=== PATIENT | female | born 1940 | race Caucasian/White ===

== ENCOUNTER → 2017-09-13 10:43 | Outpatient (CLI) | payer MEDICARE, SELFPAY | PROVIDERS: Family Provider Family Medicine; PCP Family Medicine; Visit Provider Nurse Practitioner Adult Health | DX: L03.011 Cellulitis of right finger (principal) | CPT/HCPCS: 87070; 87205 ==

== ENCOUNTER 2017-10-05 17:33 | Outpatient (RCR) | payer MEDICARE, SELFPAY | END 2017-10-05 23:59 | LOC: NS 17:33 | PROVIDERS: Family Provider Family Medicine; PCP Family Medicine; Visit Provider Orthopaedic Surgery | DX: N18.3 Chronic kidney disease, stage 3 (moderate) (principal); E66.9 Obesity, unspecified; Z68.30 Body mass index [BMI] 30.0-30.9, adult; Z71.3 Dietary counseling and surveillance | CPT/HCPCS: 97802 ==

== ENCOUNTER 2017-10-14 17:04 | Observation (INO) | payer MEDICARE, SELFPAY ==
[2017-10-14] VITALS (7 sets, daily range): BP systolic 102–143; BP diastolic 63–83; PULSE 56–88; RESP 14–26; TEMP 36.6–36.7; O2SAT 98–100; BMI 30.9; BMI 31.3
--- NOTE | 2017-10-14 17:23 | EKG12_ITS ---
Test Reason : ADMISSION EKG Blood Pressure : / mmHG Vent. Rate : 055 BPM Atrial Rate : 055 BPM P-R Int : 152 ms QRS Dur : 088 ms QT Int : 396 ms P-R-T Axes : 009 -13 009 degrees QTc Int : 378 ms Sinus bradycardia Confirmed by MINH LEDESMA, HANNAH ([id number]), editorial cartoonist SCHUYLER GRANGER ([id number]) on 10/20/2017 1:10:17 PM Referred By: EMA Confirmed By:HANNAH WILKINSON MD
[2017-10-14] MEDS: Aspirin 81 MG TAB.CHEW 324 MG PO (17:35)
[2017-10-14 17:36] LABS: Absolute Lymphocyte Count 1.66 X10^3/ul (0.83-4.51); Absolute Neutrophil Count 5.5 X10^3/uL (2.0-7.7); Basophil# 0.01 X10^3/uL; Basophil% 0.1 % (0-1); Eosinophil# 0.18 X10^3/uL; Eosinophils% 2.2 % (0-5); Hematocrit 42.2 % (37-47); Hemoglobin 13.7 g/dl (12.0-15.0); Lymphocyte # 1.66 X10^3/ul (4.0); Lymphocyte % 20.5 % (19-41); Mean Corp Hgb Conc 32.5 g/gl (32-36); Mean Corpuscular Hgb 31.9 pg (27.0-32.0); Mean Corpuscular Volume 98.4 fL (81-99); Monocyte% 8.7 % (0-10); Neutrophil # 5.49 X10^3/uL (2.7-7.7); Platelet Count 145 K/mm3 (150-450); RBC Distribution Width CV 13.2 % (11.6-14.6); RBC Distribution Width SD 47.1 fl (35.1-43.9); Red Blood Count 4.29 M/mm3 (4.2-5.4); White Blood Count 8.1 K/mm3 (4.4-11.0)
[2017-10-14 17:39] LABS: International Normalized Ratio 0.9; Prothrombin Time (Protime)PT. 12.6 SECONDS (11.7-14.9)
[2017-10-14 17:42] LABS: POSITIVE COUNT NO; POSITIVE DIFFERENTIAL NO; POSITIVE MORPHOLOGY NO
--- NOTE | 2017-10-14 17:47 | RAD_ITS ---
STUDY: X-RAY CHEST REASON FOR EXAM: Female, 76 years old. Epigastric pain radiating into the chest. TECHNIQUE: 2 views COMPARISON: None. FINDINGS: Lung [place] are well-expanded without major consolidation, focal atelectasis or a substantial pleural effusion. There is no demonstrated pleural abnormality. Normal size heart. Normal mediastinum and joan. Normal visualized pulmonary arteries. There is atherosclerotic calcification of the aortic arch with tortuosity. There are diffuse degenerative changes of the visualized thoracic spine with a mild dextroscoliosis. Normal visualized ribs, clavicles, and shoulders. There is no demonstrated abnormality of the visualized soft tissue structures of the upper abdomen. RAD/Chest PA and Lateral IMPRESSION: Lung [place] are well-expanded without major consolidation, focal atelectasis or substantial pleural effusion. Normal cardiac size. Electronically Signed: Erica Hoskins MD at 18:08 EDT , Service support ,
[2017-10-14 17:54] LABS: Anion Gap 8 (5-15); BUN 26 mg/dL (7-18); BUN/Creat Ratio 17.1 RATIO (10-20); Calcium,Total 9.5 mg/dL (8.5-10.1); Chloride 105 mmol/L (98-107); Creatinine, Serum 1.52 mg/dL (0.55-1.02); EST Glomerular Filtration Rate 35 mL/min (>60); Est Glom Filt Rate - Afr Amer 43 mL/min (>60); Estimated Creatinine Clearance 35.04 ml/min; Glucose 85 mg/dL (74-106); Potassium 4.1 mmol/L (3.5-5.1); Sodium Level 139 mmol/L (136-145)
[2017-10-14 17:59] LABS: D-Dimer Quantitative (DVT/PE) 5.53 FEU/ug/m (0.27-0.49)
--- NOTE | 2017-10-14 18:13 | CT_ITS ---
STUDY: CTA CHEST REASON FOR EXAM: Female, 76 years old. Elevated d-dimer. RADIATION DOSAGE (If Supplied By Facility): CTDIvol = ( 9.75 ) mGy, DLP = ( 428.39 ) mGycm TECHNIQUE: The examination was performed with the intravenous administration of 100ML ml of Isovue 300 contrast material. Post-processing of the angiographic images was performed, with multiplanar reformation and 3D reconstruction. Individualized dose optimization techniques were used for this CT. COMPARISON: None. FINDINGS: Normal enhancement of the main pulmonary artery and right and left pulmonary arteries. Normal enhancement of the bilateral peripheral pulmonary arteries. There is no demonstrated pulmonary embolism. There is atherosclerotic calcification of the aortic arch . There is no demonstrated aortic dissection. Normal heart and pericardium. Normal mediastinum. Normal hilar regions. Normal visualized trachea and bronchi. There is minimal bilateral dependent atelectasis. There are nonspecific prominent subpleural interstitial markings and groundglass opacities. Normal chest wall structures. There are degenerative changes of thoracic spine. Normal visualized upper abdomen. CT/CTA Chest W/WO Contrast IMPRESSION: No demonstrated pulmonary embolism or arterial dissection. Nonspecific subpleural interstitial markings and groundglass opacities may reflect interstitial lung disease. Atherosclerosis. Electronically Signed: Dasha Hernandez MD at 19:20 EDT Tel , Service support ,
[2017-10-14] MEDS: 0.9% Normal Saline 1,000 ML 999 ML IV (18:19)
--- NOTE | 2017-10-14 20:52 | PCM.HP.STD ---
Problem List (1) HTN (hypertension) Status: Chronic Qualifiers: Hypertension type: essential hypertension Qualified Code(s): I10 - Essential (primary) hypertension (2) HLD (hyperlipidemia) Status: Chronic Qualifiers: Hyperlipidemia type: pure hypercholesterolemia Qualified Code(s): E78.00 - Pure hypercholesterolemia, unspecified; E78.0 - Pure hypercholesterolemia (3) Hypothyroidism Status: Chronic Qualifiers: Hypothyroidism type: unspecified Qualified Code(s): E03.9 - Hypothyroidism, unspecified (4) Obesity (BMI 30.0-34.9) Status: Chronic (5) Chest pain Status: Acute Qualifiers: Chest pain type: unspecified Qualified Code(s): R07.9 - Chest pain, unspecified History of Present Illness Date of Admission: 10/14/17 Chief Complaint: Chest pain The patient is a 76 y/o F w/ PMHx: HTN, HLD, Obesity, Hypothyroidism, CKD stage III, Chronic back pain following w/ Dr. Lerma for injections but ability to walk her dog daily who presents to the [facility] ED on 10/14/17 with onset on day of ED presentation of substernal chest discomfort and epigastric region abdominal pain, rated 10/10 with nausea without emesis and dyspepsia w/ gurgling in her upper chest while driving, performing errands without improvement prompting ED presentation. While in the ED patient noted resolution of her discomfort. She admits to having similar episode 2 weeks prior and notes this resolved after 20-30 minutes. In the ED work-up included T 98.1, heart rates 88, BP 139/69, respiratory rate 22, 98% on room air, unremarkable CBC aside platelet 5, coags unremarkable aside d-dimer 5.53, BMP with BUN/creatinine 26/1.5 to, troponin less than 0.015, chest x-ray with chronic changes, CTPA without acute evidence of PE or arterial dissection with nonspecific subpleural interstitial markings and groundglass opacities reflective of possibly interstitial lung disease, EKG w/ SR without acute evidence of ischemia. In the ED patient administered normal saline and aspirin therapy. Past Medical History Past Medical History (Chronic Problems): Chronic Problems HTN (hypertension) (Chronic) HLD (hyperlipidemia) (Chronic) Hypothyroidism (Chronic) Obesity (BMI 30.0-34.9) (Chronic) Allergies erythromycin base Adverse Reaction (Verified 10/14/17 17:08) Vomiting morphine Adverse Reaction (Verified 10/14/17 17:08) Vomiting nitroglycerin Adverse Reaction (Verified 10/14/17 17:08) Vomiting Home Medications: Ambulatory Orders Medication Instructions Recorded Aspirin E.C. [Ecotrin] 81 mg PO DAILY@0800 10/14/17 Atorvastatin Calcium 20 mg PO DAILY 10/14/17 Enalapril Maleate 25 mg PO DAILY 10/14/17 Levothyroxine [Synthroid] 100 mcg PO DAILY 10/14/17 Surgical History: - - Bilateral foot surgery, cataract surgery bilaterally, right eye retinal tear and macular hole repair, left lower extremity surgery status post fall with trauma, anal fissure surgery, ear tube placement. 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 Tobacco Use: Non-smoker Alcohol: Rare Drugs: None - *Family History Maternal History Items: - - Maternal family history of Alzheimer's disease, carotid disease, history of aortic aneurysm. Paternal History Items: - - Father with history of rheumatoid arthritis, aortic aneurysm. Sibling History Items: - - Sister with heart disease and history of aortic aneurysm. Review of Systems Constitutional: Denies: Chills, Fever, Weight Change HEENT: Denies: Head Aches, Sinus Congestion, Sinus Drainage Cardiovascular: Reports: Chest Pain. Denies: Palpitations Respiratory: Denies: Cough, Shortness of breath at rest, Sputum production Gastrointestinal: Reports: Abdominal Pain, Dyspepsia, Nausea. Denies: Vomiting Genitourinary: Denies: Dysuria Musculoskeletal: Denies: Joint Pain, Joint Tenderness Skin: Denies: Rash, Wounds Neurological: Denies: Numbness, Tingling, Focal weakness Psychiatric: Denies: Anxiety, Depression, Homicidal Ideations, Suicidal Ideations Hematologic/ Lymphatic: Denies: Easy Bruising, Easy Bleeding VTE Information - Inpt Only VTE Present on Admission: No VTE Mechan Device Prophylaxis: SCD's VTE Pharm Prophylaxis ordered?: Yes Patient Problems: Active and Suspected Problems Chest pain (Acute) Subjective: Seated upright in the ED bed, denies any current abdominal pain or chest pain. Objective: Physical Examination: General: awake, alert, oriented x 3 and cooperative, seated upright in the ED bed in no apparent distress. Skin: normal color, turgor, no icterus, cyanosis. HEENT: AT/NC, EOMI, L eye mild deviation chronic, PERRLA, MMM, no carotid bruits or JVD noted. Lungs: CTA bilaterally, moderate effort, mild decrease BL bases, no rales, ronchi or wheezing. Heart: Regular rate and rhythm; no gallop, rub audible. Abdomen: soft, obese, NTTP even in the epigastric region, ND, normal BS, no HSM. Extremities: no cyanosis, clubbing, or edema. Neurological: patient awake, alert, oriented x 3; cognitive function intact; pupils equally reactive to light and accomodation; cranial nerves II-XII grossly normal, moving all 4 extremities, no focal deficits, strength preserved. Psychiatric: affect appears normal, no acute evidence of depressive or anxiety feelings. - Physical Exam Vital Signs Temp Pulse Resp BP Pulse Ox 98.1 F 88 22 H 139/69 H 98 10/14/17 17:05 10/14/17 19:10 10/14/17 19:10 10/14/17 19:10 10/14/17 19:10 Oxygen Delivery Method Room Air Weight: 153 lb Body Mass Index (BMI) 30.9 Laboratory Tests Past 24 Hrs 10/14/17 10/14/17 10/14/17 17:20 17:20 17:20 WBC 8.1 RBC 4.29 Hgb 13.7 Hct 42.2 MCV 98.4 MCH 31.9 MCHC 32.5 RDW 13.2 RDW Differential 47.1 H Plt Count 145 L MPV 11.0 Immature Gran % (Auto) 0.500 Neut % (Auto) 68.0 Lymph % (Auto) 20.5 [place] % (Auto) 8.7 Eos % (Auto) 2.2 Baso % (Auto) 0.1 Absolute Neuts (auto) 5.5 Absolute Lymphs (auto) 1.66 Total Counted Not Reportable PT 12.6 INR 0.9 D-Dimer Quant (PE/DVT) 5.53 H* Sodium 139 Potassium 4.1 Chloride 105 Carbon Dioxide 26.0 Anion Gap 8 BUN 26 H Creatinine 1.52 H Estim Creat Clear Calc 35.04 Est GFR (MDRD) Af Amer 43 L Est GFR (MDRD) Non-Af 35 L BUN/Creatinine Ratio 17.1 Glucose 85 Calcium 9.5 Troponin I < 0.015 Assessment/Plan Active and Suspected Problems Chest pain (Acute) The patient is a 76 y/o F w/ PMHx: HTN, HLD, Obesity, Hypothyroidism, CKD stage III, Chronic back pain following w/ Dr. Lerma for injections but ability to walk her dog daily who presents to the [facility] ED on 10/14/17 with onset on day of ED presentation of substernal chest discomfort and epigastric region abdominal pain, rated 10/10 with nausea without emesis and dyspepsia w/ gurgling in her upper chest while driving, performing errands without improvement prompting ED presentation. While in the ED patient noted resolution of her discomfort. (1) Atypical Chest Pain: Lower suspicion cardiac etiology, obtaining lipase upon admission, possible GERD etiology. Troponin >0.015, chest x-ray with chronic changes, CTPA without acute evidence of PE or arterial dissection with nonspecific subpleural interstitial markings and ground-glass opacities reflective of possibly interstitial lung disease, EKG w/ SR without acute evidence of ischemia. Will admit to PCU, place on a monitored bed to assure no acute myocardial infarction with serial cardiac enzymes and EKGs. Patient noting she is able to perform treadmill and has been using the treadmill recently for therapy for her back discomfort. Will obtain AM treadmill stress testing if enzymes remain appropriate. ASA, NG, morphine. FLP in AM. Mag pending. (2) Hypertension: Continue home regimen including enalapril, PRN hydralazine. (3) Hyperlipidemia: Continue home statin regimen. AM FLP. (4) Chronic Kidney Disease Stage III: Admission BUN/Cr 26/1.5, baseline renal function 1.5, stable, repeat in AM. (5) Obesity: Weight loss and lifestyle changes encouraged. (6) Hypothyroidism: Continue home synthroid regimen. (7) Significant FHx AAA: Will obtain aortic US given notable family history. (8) DVT Prophylaxis: SCDs, heparin. Code Visit OBSV E&M: 20390 Initial observation care L3
--- NOTE | 2017-10-14 21:01 | ED.VISSUMM ---
- ER Visit Summary Date of Service: 10/14/17 Chief Complaint: [] Chest pain. History of Present Illness: The patient is a 76 F [] complaining of midsternal chest pain occurring 1 hour prior to arrival. She reports radiation to her throat. She reports she went to her PCPs office after the onset and reportedly had a normal EKG however he strongly encouraged her to present to the emergency department for laboratory testing and further studies. She does report history of fibromyalgia, hypertension, cholesterol, thyroid disease, gout. Does report mild abdominal discomfort. No other complaints at this time. Physical Examination: [] Afebrile, vital signs stable. 76-year-old female no acute distress cardiovascular exam is regular rate and rhythm. Lungs are clear to auscultation. Abdomen is soft and nontender. No significant lower extremity edema. Test Results: [] EKG: Normal sinus rhythm rate of 58 without ischemic changes. There is a prior EKG however it is 20 years old. Chest x-ray negative. Labs negative. Troponin negative at less than 0.015. D-dimer significant elevated 5.53. CTA of the chest was obtained and this was negative. Emergency Department Course and Treatment: [] Patient evaluated for chest discomfort. The workup is negative however the patient provides some significant risk factors and a good history and warrants admission. Case discussed with the hospitalist will be done to evaluate for likely admission to telemetry and further evaluation. Treatment Plan: [] Admit, stable. Disposition: [] Admit, stable. Impression: [] Chest pain This note was generated with [employer] dictation software. It may contain incorrect words, spelling, and punctuation that were not noted in review of the chart prior to signing ED Disposition - Plan for ED Patient: Chief Complaint: Chest Other Referrals: Sheila Reyes MD [Primary Care Provider] -
--- NOTE | 2017-10-14 21:04 | ED.DCSUM_ITS ---
- ER Visit Summary Date of Service: 10/14/17 Chief Complaint: [] Chest pain. History of Present Illness: The patient is a 76 F [] complaining of midsternal chest pain occurring 1 hour prior to arrival. She reports radiation to her throat. She reports she went to her PCPs office after the onset and reportedly had a normal EKG however he strongly encouraged her to present to the emergency department for laboratory testing and further studies. She does report history of fibromyalgia, hypertension, cholesterol, thyroid disease, gout. Does report mild abdominal discomfort. No other complaints at this time. Physical Examination: [] Afebrile, vital signs stable. 76-year-old female no acute distress cardiovascular exam is regular rate and rhythm. Lungs are clear to auscultation. Abdomen is soft and nontender. No significant lower extremity edema. Test Results: [] EKG: Normal sinus rhythm rate of 58 without ischemic changes. There is a prior EKG however it is 20 years old. Chest x-ray negative. Labs negative. Troponin negative at less than 0.015. D- dimer significant elevated 5.53. CTA of the chest was obtained and this was negative. Emergency Department Course and Treatment: [] Patient evaluated for chest discomfort. The workup is negative however the patient provides some significant risk factors and a good history and warrants admission. Case discussed with the hospitalist will be done to evaluate for likely admission to telemetry and further evaluation. Treatment Plan: [] Admit, stable. Disposition: [] Admit, stable. Impression: [] Chest pain This note was generated with [employer] dictation software. It may contain incorrect words, spelling, and punctuation that were not noted in review of the chart prior to signing ED Disposition - Plan for ED Patient: Chief Complaint: Chest Other Referrals: Sheila Reyes MD [Primary Care Provider] -
--- NOTE | 2017-10-14 21:05 | HP.PCM_ITS ---
Problem List (1) HTN (hypertension) Status: Chronic Qualifiers: Hypertension type: essential hypertension Qualified Code(s): I10 - Essential (primary) hypertension (2) HLD (hyperlipidemia) Status: Chronic Qualifiers: Hyperlipidemia type: pure hypercholesterolemia Qualified Code(s): E78.00 - Pure hypercholesterolemia, unspecified; E78.0 - Pure hypercholesterolemia (3) Hypothyroidism Status: Chronic Qualifiers: Hypothyroidism type: unspecified Qualified Code(s): E03.9 - Hypothyroidism , unspecified (4) Obesity (BMI 30.0-34.9) Status: Chronic (5) Chest pain Status: Acute Qualifiers: Chest pain type: unspecified Qualified Code(s): R07.9 - Chest pain, unspecified History of Present Illness Date of Admission: 10/14/17 Chief Complaint: Chest pain The patient is a 76 y/o F w/ PMHx: HTN, HLD, Obesity, Hypothyroidism, CKD stage III, Chronic back pain following w/ Dr. Lerma for injections but ability to walk her dog daily who presents to the [facility] ED on 10/14/17 with onset on day of ED presentation of substernal chest discomfort and epigastric region abdominal pain, rated 10/10 with nausea without emesis and dyspepsia w/ gurgling in her upper chest while driving, performing errands without improvement prompting ED presentation. While in the ED patient noted resolution of her discomfort. She admits to having similar episode 2 weeks prior and notes this resolved after 20- 30 minutes. In the ED work-up included T 98.1, heart rates 88, BP 139/69, respiratory rate 22, 98% on room air, unremarkable CBC aside platelet 5, coags unremarkable aside d-dimer 5.53, BMP with BUN/creatinine 26/1.5 to, troponin less than 0.015, chest x-ray with chronic changes, CTPA without acute evidence of PE or arterial dissection with nonspecific subpleural interstitial markings and groundglass opacities reflective of possibly interstitial lung disease, EKG w/ SR without acute evidence of ischemia. In the ED patient administered normal saline and aspirin therapy. Past Medical History Past Medical History (Chronic Problems): Chronic Problems HTN (hypertension) (Chronic) HLD (hyperlipidemia) (Chronic) Hypothyroidism (Chronic) Obesity (BMI 30.0-34.9) (Chronic) Allergies erythromycin base Adverse Reaction (Verified 10/14/17 17:08) Vomiting morphine Adverse Reaction (Verified 10/14/17 17:08) Vomiting nitroglycerin Adverse Reaction (Verified 10/14/17 17:08) Vomiting Home Medications: Ambulatory Orders Medication Instructions Recorded Aspirin E.C. [Ecotrin] 81 mg PO DAILY@0800 10/14/17 Atorvastatin Calcium 20 mg PO DAILY 10/14/17 Enalapril Maleate 25 mg PO DAILY 10/14/17 Levothyroxine [Synthroid] 100 mcg PO DAILY 10/14/17 Surgical History: - - Bilateral foot surgery, cataract surgery bilaterally, right eye retinal tear and macular hole repair, left lower extremity surgery status post fall with trauma, anal fissure surgery, ear tube placement. 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 Tobacco Use: Non-smoker Alcohol: Rare Drugs: None - *Family History Maternal History Items: - - Maternal family history of Alzheimer's disease, carotid disease, history of aortic aneurysm. Paternal History Items: - - Father with history of rheumatoid arthritis, aortic aneurysm. Sibling History Items: - - Sister with heart disease and history of aortic aneurysm. Review of Systems Constitutional: Denies: Chills, Fever, Weight Change HEENT: Denies: Head Aches, Sinus Congestion, Sinus Drainage Cardiovascular: Reports: Chest Pain. Denies: Palpitations Respiratory: Denies: Cough, Shortness of breath at rest, Sputum production Gastrointestinal: Reports: Abdominal Pain, Dyspepsia, Nausea. Denies: Vomiting Genitourinary: Denies: Dysuria Musculoskeletal: Denies: Joint Pain, Joint Tenderness Skin: Denies: Rash, Wounds Neurological: Denies: Numbness, Tingling, Focal weakness Psychiatric: Denies: Anxiety, Depression, Homicidal Ideations, Suicidal Ideations Hematologic/ Lymphatic: Denies: Easy Bruising, Easy Bleeding VTE Information - Inpt Only VTE Present on Admission: No VTE Mechan Device Prophylaxis: SCD's VTE Pharm Prophylaxis ordered?: Yes Patient Problems: Active and Suspected Problems Chest pain (Acute) Subjective: Seated upright in the ED bed, denies any current abdominal pain or chest pain. Objective: Physical Examination: General: awake, alert, oriented x 3 and cooperative, seated upright in the ED bed in no apparent distress. Skin: normal color, turgor, no icterus, cyanosis. HEENT: AT/NC, EOMI, L eye mild deviation chronic, PERRLA, MMM, no carotid bruits or JVD noted. Lungs: CTA bilaterally, moderate effort, mild decrease BL bases, no rales, ronchi or wheezing. Heart: Regular rate and rhythm; no gallop, rub audible. Abdomen: soft, obese, NTTP even in the epigastric region, ND, normal BS, no HSM. Extremities: no cyanosis, clubbing, or edema. Neurological: patient awake, alert, oriented x 3; cognitive function intact; pupils equally reactive to light and accomodation; cranial nerves II-XII grossly normal, moving all 4 extremities, no focal deficits, strength preserved. Psychiatric: affect appears normal, no acute evidence of depressive or anxiety feelings. - Physical Exam Vital Signs Temp Pulse Resp BP Pulse Ox 98.1 F 88 22 H 139/69 H 98 10/14/17 17:05 10/14/17 19:10 10/14/17 19:10 10/14/17 19:10 10/14/17 19:10 Oxygen Delivery Method Room Air Weight: 153 lb Body Mass Index (BMI) 30.9 Laboratory Tests Past 24 Hrs 10/14/17 10/14/17 10/14/17 17:20 17:20 17:20 WBC 8.1 RBC 4.29 Hgb 13.7 Hct 42.2 MCV 98.4 MCH 31.9 MCHC 32.5 RDW 13.2 RDW Differential 47.1 H Plt Count 145 L MPV 11.0 Immature Gran % (Auto) 0.500 Neut % (Auto) 68.0 Lymph % (Auto) 20.5 [place] % (Auto) 8.7 Eos % (Auto) 2.2 Baso % (Auto) 0.1 Absolute Neuts (auto) 5.5 Absolute Lymphs (auto) 1.66 Total Counted Not Reportable PT 12.6 INR 0.9 D-Dimer Quant (PE/DVT) 5.53 H* Sodium 139 Potassium 4.1 Chloride 105 Carbon Dioxide 26.0 Anion Gap 8 BUN 26 H Creatinine 1.52 H Estim Creat Clear Calc 35.04 Est GFR (MDRD) Af Amer 43 L Est GFR (MDRD) Non-Af 35 L BUN/Creatinine Ratio 17.1 Glucose 85 Calcium 9.5 Troponin I < 0.015 Assessment/Plan Active and Suspected Problems Chest pain (Acute) The patient is a 76 y/o F w/ PMHx: HTN, HLD, Obesity, Hypothyroidism, CKD stage III, Chronic back pain following w/ Dr. Lerma for injections but ability to walk her dog daily who presents to the [facility] ED on 10/14/17 with onset on day of ED presentation of substernal chest discomfort and epigastric region abdominal pain, rated 10/10 with nausea without emesis and dyspepsia w/ gurgling in her upper chest while driving, performing errands without improvement prompting ED presentation. While in the ED patient noted resolution of her discomfort. (1) Atypical Chest Pain: Lower suspicion cardiac etiology, obtaining lipase upon admission, possible GERD etiology. Troponin >0.015, chest x-ray with chronic changes, CTPA without acute evidence of PE or arterial dissection with nonspecific subpleural interstitial markings and ground-glass opacities reflective of possibly interstitial lung disease, EKG w/ SR without acute evidence of ischemia. Will admit to PCU, place on a monitored bed to assure no acute myocardial infarction with serial cardiac enzymes and EKGs. Patient noting she is able to perform treadmill and has been using the treadmill recently for therapy for her back discomfort. Will obtain AM treadmill stress testing if enzymes remain appropriate. ASA, NG, morphine. FLP in AM. Mag pending. (2) Hypertension: Continue home regimen including enalapril, PRN hydralazine. (3) Hyperlipidemia: Continue home statin regimen. AM FLP. (4) Chronic Kidney Disease Stage III: Admission BUN/Cr 26/1.5, baseline renal function 1.5, stable, repeat in AM. (5) Obesity: Weight loss and lifestyle changes encouraged. (6) Hypothyroidism: Continue home synthroid regimen. (7) Significant FHx AAA: Will obtain aortic US given notable family history. (8) DVT Prophylaxis: SCDs, heparin. Code Visit OBSV E&M: 46143 Initial observation care L3
--- NOTE | 2017-10-14 22:19 | EKG12_ITS ---
Test Reason : CP Blood Pressure : / mmHG Vent. Rate : 058 BPM Atrial Rate : 058 BPM P-R Int : 148 ms QRS Dur : 088 ms QT Int : 390 ms P-R-T Axes : 012 -20 002 degrees QTc Int : 382 ms Sinus bradycardia Otherwise normal ECG Confirmed by LUZ LEDESMA, ANDRZEJ ([id number]), magazine editor SCHUYLER RACHEL ([id number]) on 10/18/2017 2:05:20 PM Referred By: Ronni Rachel Confirmed By:ANDRZEJ ESCOBAR MD
[2017-10-14 22:41] LABS: Lipase 400 U/L (73-393)
[2017-10-14] MEDS: 0.9% Normal Saline 1,000 ML 100 ML IV (23:41)
[2017-10-15] VITALS (7 sets, daily range): BP systolic 98–102; BP diastolic 56–62; PULSE 55–85; RESP 16–18; TEMP 36.5–36.8; O2SAT 94–98
[2017-10-15] MEDS: Famotidine 20 MG Tablet PO (00:26)
[2017-10-15] MEDS: Heparin Injection (Vial) 5,000 UNIT/ML VIAL 5000 UNIT SC (00:26)
[2017-10-15] MEDS: Atorvastatin Calcium 20 MG Tablet PO (00:26)
[2017-10-15] MEDS: 0.9% Normal Saline 1,000 ML 999 ML IV (00:29)
[2017-10-15] MEDS: 0.9% Normal Saline 1,000 ML 150 ML IV (00:30)
[2017-10-15 02:44] LABS: Hematocrit 34.7 % (37-47); Hemoglobin 11.4 g/dl (12.0-15.0); Mean Corp Hgb Conc 32.9 g/gl (32-36); Mean Corpuscular Hgb 32.9 pg (27.0-32.0); Platelet Count 114 K/mm3 (150-450); RBC Distribution Width CV 13.3 % (11.6-14.6); RBC Distribution Width SD 46.9 fl (35.1-43.9); Red Blood Count 3.47 M/mm3 (4.2-5.4); White Blood Count 7.1 K/mm3 (4.4-11.0)
[2017-10-15 02:45] LABS: Scan Indicated on CBC? Y/N NO
[2017-10-15 05:18] LABS: International Normalized Ratio 1.1; Prothrombin Time (Protime)PT. 13.9 SECONDS (11.7-14.9)
[2017-10-15 05:19] LABS: Partial Thromboplast Time 30.3 Seconds (24.1-36.2)
[2017-10-15 05:54] LABS: Anion Gap 9 (5-15); BUN 24 mg/dL (7-18); BUN/Creat Ratio 20.2 RATIO (10-20); Calcium,Total 7.9 mg/dL (8.5-10.1); Chloride 114 mmol/L (98-107); Cholesterol 146 mg/dL (200); Creatinine, Serum 1.19 mg/dL (0.55-1.02); EST Glomerular Filtration Rate 47 mL/min (>60); Est Glom Filt Rate - Afr Amer 57 mL/min (>60); Estimated Creatinine Clearance 45.33 ml/min; Glucose 105 mg/dL (74-106); High Density Lipoprotein 64 mg/dL; Lipase 411 U/L (73-393); Potassium 4.4 mmol/L (3.5-5.1); Sodium Level 146 mmol/L (136-145); Triglycerides 122 mg/dL; Very Low Density Lipoprotein 24 mg/dL (5-40)
--- NOTE | 2017-10-15 05:55 | EKG12_ITS ---
Test Reason : AM EKG Blood Pressure : / mmHG Vent. Rate : 057 BPM Atrial Rate : 057 BPM P-R Int : 142 ms QRS Dur : 086 ms QT Int : 408 ms P-R-T Axes : 013 -12 009 degrees QTc Int : 397 ms Sinus bradycardia Poor R wave progression Confirmed by MINH LEDESMA, HANNAH ([id number]), make up editor SCHUYLER GRANGER ([id number]) on 10/20/2017 1:09:02 PM Referred By: DR BOO Confirmed By:HANNAH WILKINSON MD
[2017-10-15] MEDS: Aspirin E.C. 81 MG Tablet PO (06:46)
[2017-10-15] MEDS: Lisinopril 2.5 MG Tablet PO (06:49)
--- NOTE | 2017-10-15 09:24 | STRESSREP ---
Stress Test Report Date: 10/15/2017 Procedure: Exercise tolerance test/imaging study Indications: Chest pain Consent: Per the patient Procedure: The patient exercised on a Victor M protocol for 4 minutes completing Stage I and 1 minute of Stage II achieving a peak heart rate of 150 bpm (103 % predicted maximal heart rate) with a peak blood pressure 142/78 mmHg and a peak MET capacity of 5 METs. The baseline ECG demonstrated this bradycardia. The peak exercise ECG demonstrated no obvious ECG changes. There were no cardiac dysrhythmias pretest, during exercise, or recovery. The functional capacity was considered decreased. There was no complaint of chest discomfort during exercise or recovery. The examination was discontinued secondary to dyspnea. Impression: 1. Technically adequate (percent predicted maximal heart rate greater than 85%) exercise tolerance test 2. Peak exercise ECG no obvious ECG changes 3. No cardiac dysrhythmias pretest, during exercise, or recovery. 4. Nuclear images pending Myocardial perfusion imaging study: Technique: The patient was injected with 12.0 mCi of technetium 99m Cardiolite and subsequently rest SPECT Cardiolite nuclear imaging was obtained in the horizontal long, vertical long, and short axis views. The patient exercised on a Victor M protocol for 4 minutes completing Stage I and 1 minute of Stage II achieving a peak heart rate of 150 bpm (103 % predicted maximal heart rate) with a peak blood pressure 142/78 mmHg and a peak MET capacity of 5 METs. The patient was injected with 35.4 mCi of technetium 99m Cardiolite and subsequently stress SPECT Cardiolite nuclear imaging was obtained in the horizontal long, vertical long, and short axis views. A gated Cardiolite study at peak stress was obtained. Interpretation: Rest and stress SPECT Cardiolite nuclear imaging status post realignment, normalization, and attenuation correction, demonstrates the appearance of a small area of subtle diminished tracer uptake near the apical segments being more prominent at rest as opposed to stress. There is end systolic thickening and brightening. The gated Cardiolite study demonstrates myocardial thickening and inward wall motion. The reported LVEF is 72 %. Impression: 1. Rest and stress SPECT Cardiolite nuclear imaging demonstrate demonstrate the appearance of a small area of subtle diminished tracer uptake near the apical segments being more prominent at rest as opposed to stress appearing compatible with shifting soft tissue attenuation/artifact and physiologic apical thinning with no myocardial perfusion changes consider diagnostic for associated stress-induced myocardial ischemia or previous myocardial injury/infarction. 2. The gated Cardiolite study reports an LVEF of 72 %. This note was generated with Panoramic Poweration software. It may contain incorrect words, spelling, and punctuation that were not noted in checking the note before signing.
--- NOTE | 2017-10-15 09:30 | STRESSREP_ITS ---
Stress Test Report Date: 10/15/2017 Procedure: Exercise tolerance test/imaging study Indications: Chest pain Consent: Per the patient Procedure: The patient exercised on a Victor M protocol for 4 minutes completing Stage I and 1 minute of Stage II achieving a peak heart rate of 150 bpm (103 % predicted maximal heart rate) with a peak blood pressure 142/78 mmHg and a peak MET capacity of 5 METs. The baseline ECG demonstrated this bradycardia. The peak exercise ECG demonstrated no obvious ECG changes. There were no cardiac dysrhythmias pretest, during exercise, or recovery. The functional capacity was considered decreased. There was no complaint of chest discomfort during exercise or recovery. The examination was discontinued secondary to dyspnea. Impression: 1. Technically adequate (percent predicted maximal heart rate greater than 85% ) exercise tolerance test 2. Peak exercise ECG no obvious ECG changes 3. No cardiac dysrhythmias pretest, during exercise, or recovery. 4. Nuclear images pending Myocardial perfusion imaging study: Technique: The patient was injected with 12.0 mCi of technetium 99m Cardiolite and subsequently rest SPECT Cardiolite nuclear imaging was obtained in the horizontal long, vertical long, and short axis views. The patient exercised on a Victor M protocol for 4 minutes completing Stage I and 1 minute of Stage II achieving a peak heart rate of 150 bpm (103 % predicted maximal heart rate) with a peak blood pressure 142/78 mmHg and a peak MET capacity of 5 METs. The patient was injected with 35.4 mCi of technetium 99m Cardiolite and subsequently stress SPECT Cardiolite nuclear imaging was obtained in the horizontal long, vertical long, and short axis views. A gated Cardiolite study at peak stress was obtained. Interpretation: Rest and stress SPECT Cardiolite nuclear imaging status post realignment, normalization, and attenuation correction, demonstrates the appearance of a small area of subtle diminished tracer uptake near the apical segments being more prominent at rest as opposed to stress. There is end systolic thickening and brightening. The gated Cardiolite study demonstrates myocardial thickening and inward wall motion. The reported LVEF is 72 %. Impression: 1. Rest and stress SPECT Cardiolite nuclear imaging demonstrate demonstrate the appearance of a small area of subtle diminished tracer uptake near the apical segments being more prominent at rest as opposed to stress appearing compatible with shifting soft tissue attenuation/artifact and physiologic apical thinning with no myocardial perfusion changes consider diagnostic for associated stress-induced myocardial ischemia or previous myocardial injury/ infarction. 2. The gated Cardiolite study reports an LVEF of 72 %. This note was generated with Sis[employer]ation software. It may contain incorrect words, spelling, and punctuation that were not noted in checking the note before signing.
--- NOTE | 2017-10-15 10:44 | DCINST_ITS ---
- Discharge Diagnoses Current Active Problems: Current Active and Chronic Problems HTN (hypertension) (Chronic) HLD (hyperlipidemia) (Chronic) Hypothyroidism (Chronic) Obesity (BMI 30.0-34.9) (Chronic) Chest pain (Acute) You will use the following diet at home:: Cardiac Discharge Activity: Return to Normal Activity Call your doctor if you observe: Shortness of breath, Dizziness, Fainting spells , Chest pain, Increased palpitations (irregular heartbeat) Allergies/Adverse Reactions: Allergies erythromycin base Adverse Reaction (Verified 10/14/17 17:08) Vomiting morphine Adverse Reaction (Verified 10/14/17 17:08) Vomiting nitroglycerin Adverse Reaction (Verified 10/14/17 17:08) Vomiting Medications to take at Discharge Aspirin E.C. [Ecotrin] 81 mg PO DAILY@0800 10/14/17 Atorvastatin Calcium 20 mg PO DAILY 10/14/17 Enalapril Maleate 2.5 mg PO DAILY 10/14/17 Levothyroxine [Synthroid] 100 mcg PO 5X/DAY 10/14/17 Multivitamin [Daily Multiple Vitamin] 1 each PO DAILY 10/14/17 Primary Care Physician: Sheila Reyes MD [Primary Care Provider] - Please follow up with your Primary Care Physician in: 1 Week Please Follow Up With: Mario Lerma - Pain management When: As scheduled Proposed Discharge Date: 10/15/17
--- NOTE | 2017-10-15 10:51 | PCM.DC.SUM ---
<Lakesha Mcdonnell - Last Filed: 10/15/17 10:59> Discharge Date and Diagnosis Date of Admission: 10/14/17 Date of Discharge: 10/15/17 - Primary Discharge Diagnosis Active and Suspected Problems 1. Chest pain- ACS ruled out. - Secondary Discharge Diagnosis Chronic Problems HTN (hypertension) (Chronic) HLD (hyperlipidemia) (Chronic) Hypothyroidism (Chronic) Obesity (BMI 30.0-34.9) (Chronic) Hospital Course and Treatment Imaging Results: Diagnostic Data Chest X-Ray 10/14/17 17:47 IMPRESSION: Lung alcala are well-expanded without major consolidation, focal atelectasis or substantial pleural effusion. Normal cardiac size. Electronically Signed: Erica Hoskins MD at 18:08 EDT , Service support , Chest CTA 10/14/17 18:13 IMPRESSION: No demonstrated pulmonary embolism or arterial dissection. Nonspecific subpleural interstitial markings and groundglass opacities may reflect interstitial lung disease. Atherosclerosis. Electronically Signed: Dasha Hernandez MD at 19:20 EDT Tel , Service support , Operations: None Procedures: Stress test Summary of Care Provided: The patient is a 76 year old F admitted 10/14/17 due to chest pain. She has a past medical history of hypertension, hyperlipidemia, obesity, hypothyroidism, chronic kidney disease stage III, chronic back pain. Patient's chest pain has not recurred. Chest x-ray unremarkable. CT without evidence of PE or arterial dissection. EKG sinus rhythm without evidence of ischemia. Patient underwent nuclear stress test which was negative for ischemia. ACS ruled out. Possibly related to GERD. If patient has recurrent episodes, recommend addition of PPI. Patient will continue home aspirin,, statin, enalapril regimen. Recommend outpatient aortic ultrasound given notable family history of AAA. Follow-up with primary care physician in 1 week. Continue outpatient follow-up with pain management as scheduled. Patient seen exam prior to discharge. Heart rate regular rate and rhythm. Lungs clear. Abdomen soft, nontender. Neuro grossly intact. Vital signs stable. Patient is stable for discharge home with recommendations as noted above. Discharge Diet: Low fat/ Low Cholesterol Discharge Activity: Return to Normal Activity Call your doctor if you observe: Shortness of breath, Dizziness, Fainting spells, Chest pain, Increased palpitations (irregular heartbeat) Home Medications: Medications to take at Discharge Aspirin E.C. [Ecotrin] 81 mg PO DAILY@0800 10/14/17 Atorvastatin Calcium 20 mg PO DAILY 10/14/17 Enalapril Maleate 2.5 mg PO DAILY 10/14/17 Levothyroxine [Synthroid] 100 mcg PO 5X/DAY 10/14/17 Multivitamin [Daily Multiple Vitamin] 1 each PO DAILY 10/14/17 Primary Care Physician: Sheila Reyes MD [Primary Care Provider] - Please follow up with your Primary Care Physician in: 1 Week Please Follow Up With: Mario Lerma - Pain management When: As scheduled Disposition: Home Minutes spent on discharge:: 35 Patient Condition:: Stable Medical Necessity - Tobacco Use Smoking Status: Former smoker Tobacco Use: Non-smoker Meaningful Use Info Meaningful Use Diagnoses (Choose all that apply): None applicable <Dennys Benitez - Last Filed: 10/15/17 12:54> Discharge Date and Diagnosis - Secondary Discharge Diagnosis Chronic Problems HTN (hypertension) (Chronic) HLD (hyperlipidemia) (Chronic) Hypothyroidism (Chronic) Obesity (BMI 30.0-34.9) (Chronic) Hospital Course and Treatment Summary of Care Provided: The patient is a 76 year old F with past medical history is none for hypertension dyslipidemia hypothyroidism who presented with chest pain. Patient was placed on a monitored bed did rule out [place] with serial cardiac enzymes. She also had CTA of the chest obtained prior to her admission from the ED which was negative for PE nor arterial dissection. Patient did report family history of AAA's plan was for patient to have obtained an ultrasound however with the result not likely to be present during her hospitalization patient was instructed to follow-up with PCP for the procedure to be performed Patient was seen and examined on the day of discharge did answer all her questions. Her discharge instructions and medication reconciliation as well as hospital course as detailed by Lakesha Mcdonnell reviewed Time spent in discharge process 35 minutes Code Visit OBSV E&M: 16572 Observation care discharge
--- NOTE | 2017-10-15 10:56 | DS.PCM_ITS ---
<Lakesha Mcdonnell - Last Filed: 10/15/17 10:59> Discharge Date and Diagnosis Date of Admission: 10/14/17 Date of Discharge: 10/15/17 - Primary Discharge Diagnosis Active and Suspected Problems 1. Chest pain- ACS ruled out. - Secondary Discharge Diagnosis Chronic Problems HTN (hypertension) (Chronic) HLD (hyperlipidemia) (Chronic) Hypothyroidism (Chronic) Obesity (BMI 30.0-34.9) (Chronic) Hospital Course and Treatment Imaging Results: Diagnostic Data Chest X-Ray 10/14/17 17:47 IMPRESSION: Lung alcala are well-expanded without major consolidation, focal atelectasis or substantial pleural effusion. Normal cardiac size. Electronically Signed: Erica Hoskins MD at 18:08 EDT , Service support , Chest CTA 10/14/17 18:13 IMPRESSION: No demonstrated pulmonary embolism or arterial dissection. Nonspecific subpleural interstitial markings and groundglass opacities may reflect interstitial lung disease. Atherosclerosis. Electronically Signed: Dasha Hernandez MD at 19:20 EDT Tel , Service support , Operations: None Procedures: Stress test Summary of Care Provided: The patient is a 76 year old F admitted 10/14/17 due to chest pain. She has a past medical history of hypertension, hyperlipidemia, obesity, hypothyroidism, chronic kidney disease stage III, chronic back pain. Patient's chest pain has not recurred. Chest x-ray unremarkable. CT without evidence of PE or arterial dissection. EKG sinus rhythm without evidence of ischemia. Patient underwent nuclear stress test which was negative for ischemia. ACS ruled out. Possibly related to GERD. If patient has recurrent episodes, recommend addition of PPI. Patient will continue home aspirin,, statin, enalapril regimen. Recommend outpatient aortic ultrasound given notable family history of AAA. Follow-up with primary care physician in 1 week. Continue outpatient follow-up with pain management as scheduled. Patient seen exam prior to discharge. Heart rate regular rate and rhythm. Lungs clear. Abdomen soft, nontender. Neuro grossly intact. Vital signs stable. Patient is stable for discharge home with recommendations as noted above. Discharge Diet: Low fat/ Low Cholesterol Discharge Activity: Return to Normal Activity Call your doctor if you observe: Shortness of breath, Dizziness, Fainting spells , Chest pain, Increased palpitations (irregular heartbeat) Home Medications: Medications to take at Discharge Aspirin E.C. [Ecotrin] 81 mg PO DAILY@0800 10/14/17 Atorvastatin Calcium 20 mg PO DAILY 10/14/17 Enalapril Maleate 2.5 mg PO DAILY 10/14/17 Levothyroxine [Synthroid] 100 mcg PO 5X/DAY 10/14/17 Multivitamin [Daily Multiple Vitamin] 1 each PO DAILY 10/14/17 Primary Care Physician: Sheila Reyes MD [Primary Care Provider] - Please follow up with your Primary Care Physician in: 1 Week Please Follow Up With: Mario Lerma - Pain management When: As scheduled Disposition: Home Minutes spent on discharge:: 35 Patient Condition:: Stable Medical Necessity - Tobacco Use Smoking Status: Former smoker Tobacco Use: Non-smoker Meaningful Use Info Meaningful Use Diagnoses (Choose all that apply): None applicable <Dennys Benitez - Last Filed: 10/15/17 12:54> Discharge Date and Diagnosis - Secondary Discharge Diagnosis Chronic Problems HTN (hypertension) (Chronic) HLD (hyperlipidemia) (Chronic) Hypothyroidism (Chronic) Obesity (BMI 30.0-34.9) (Chronic) Hospital Course and Treatment Summary of Care Provided: The patient is a 76 year old F with past medical history is none for hypertension dyslipidemia hypothyroidism who presented with chest pain. Patient was placed on a monitored bed did rule out [place] with serial cardiac enzymes. She also had CTA of the chest obtained prior to her admission from the ED which was negative for PE nor arterial dissection. Patient did report family history of AAA's plan was for patient to have obtained an ultrasound however with the result not likely to be present during her hospitalization patient was instructed to follow-up with PCP for the procedure to be performed Patient was seen and examined on the day of discharge did answer all her questions. Her discharge instructions and medication reconciliation as well as hospital course as detailed by Lakesha Mcdonnell reviewed Time spent in discharge process 35 minutes Code Visit OBSV E&M: 27563 Observation care discharge
== END 2017-10-15 10:44 | disposition home or self-care (01) ==
LOC: ED 21:24 → PCU 21:34
PROVIDERS: Admitting Provider Family Medicine; Emergency Provider Emergency Medicine; Family Provider Family Medicine; PCP Family Medicine; Visit Provider Internal Medicine
DX: R07.89 Other chest pain (principal); E78.5 Hyperlipidemia, unspecified; E03.9 Hypothyroidism, unspecified; E66.9 Obesity, unspecified; I13.10 Hypertensive heart and chronic kidney disease without heart failure, with stage 1 through stage 4 chronic kidney disease, or unspecified chronic kidney disease; N18.3 Chronic kidney disease, stage 3 (moderate); Z68.31 Body mass index [BMI] 31.0-31.9, adult; Z71.3 Dietary counseling and surveillance; Z79.899 Other long term (current) drug therapy; Z79.82 Long term (current) use of aspirin; Z87.891 Personal history of nicotine dependence; M79.7 Fibromyalgia
CPT/HCPCS: 36415; 71046; 71275; 78452; 80048; 80061; 83690; 83735; 84484; 85025; 85027; 85379; 85610; 85730; 93005; 93017; 96360; 96361; 96372; 99218; 99283; A9500; J7030; Q9967; A4216; G0378

== ENCOUNTER → 2018-01-20 10:52 | Outpatient (CLI) | payer MEDICARE, SELFPAY | PROVIDERS: Family Provider Family Medicine; PCP Family Medicine; Visit Provider Anesthesiology Pain Medicine | DX: M51.37 Other intervertebral disc degeneration, lumbosacral region (principal); M54.17 Radiculopathy, lumbosacral region | CPT/HCPCS: 72148 ==

== ENCOUNTER → 2018-04-10 15:06 | Outpatient (CLI) | payer MEDICARE, SELFPAY ==
[2018-04-10 18:32] LABS: AST(SGOT) 43 U/L (15-37); Alanine Aminotransfer ALT/SGPT 34 U/L (13-56); Anion Gap 11 (5-15); BUN 26 mg/dL (7-18); BUN/Creat Ratio 15.5 RATIO (10-20); Calcium,Total 9.8 mg/dL (8.5-10.1); Chloride 105 mmol/L (98-107); Cholesterol 158 mg/dL (200); Creatinine, Serum 1.68 mg/dL (0.55-1.02); EST Glomerular Filtration Rate 31 mL/min (>60); Est Glom Filt Rate - Afr Amer 38 mL/min (>60); Glucose 84 mg/dL (74-106); High Density Lipoprotein 62 mg/dL; Potassium 4.6 mmol/L (3.5-5.1); Sodium Level 140 mmol/L (136-145); T4 Total, Thyroxin 10.9 ug/dL (4.8-13.9); Thyroid Stim Hormone (TSH) 0.91 uIU/mL (0.358-3.74); Triglycerides 91 mg/dL; Very Low Density Lipoprotein 18 mg/dL (5-40)
== END ==
PROVIDERS: Family Provider Family Medicine; PCP Family Medicine; Visit Provider Family Medicine
DX: Z00.00 Encounter for general adult medical examination without abnormal findings (principal); E03.9 Hypothyroidism, unspecified; E78.00 Pure hypercholesterolemia, unspecified
CPT/HCPCS: 36415; 80048; 80061; 84436; 84443; 84450; 84460

== ENCOUNTER → 2018-04-12 15:34 | Outpatient (CLI) | payer MEDICARE, SELFPAY ==
--- NOTE | 2018-04-12 15:36 | BI_ITS ---
MAMMOGRAPHY - BILATERAL SCREENING REASON FOR EXAM: Female, 77 years old. Routine annual screening examination. PERTINENT HISTORY: Aunt with breast cancer. TECHNIQUE: Digital bilateral breast lashell (3D mammographic acquisition) in the CC and MLO projections. 2-D mediolateral oblique (MLO) and craniocaudad (CC) views of both breasts were obtained. CAD: Full Field Digital Mammography with Computer Added Detection was performed. COMPARISON: Comparison is made with prior study dated April 09, 2017 and February 23, 2016. FINDINGS: Breast Composition: The breasts are almost entirely fatty. There are no dominant masses or suspicious calcifications. No other significant abnormalities are identified. There has been no significant change since the prior study. BI/SCREENING MAMM (CAD), BILAT IMPRESSION: Stable bilateral screening mammogram. Yearly follow-up mammogram recommended. (A) ASSESSMENT CATEGORY: BIRADS Category 1: Negative. A letter regarding these results will be sent to the patient by the facility within 30 days. Approximately 10% of breast cancers are not detected by mammography. A normal mammogram should not delay biopsy of a clinically suspicious abnormality. [id number] Electronically Signed: Rigo Shah MD at 9:05 EST Tel [phone], Service support ,
== END ==
PROVIDERS: Family Provider Family Medicine; PCP Family Medicine; Visit Provider Family Medicine
DX: Z12.31 Encounter for screening mammogram for malignant neoplasm of breast (principal)
CPT/HCPCS: 77063; 77067

== ENCOUNTER → 2018-12-26 06:23 | Outpatient (CLI) | payer MEDICARE, SELFPAY ==
--- NOTE | 2018-12-28 09:41 | STRESSREP_ITS ---
Stress Test Report Date: 12/26/2018 Procedure: Exercise tolerance test/imaging study Indications: Chest pain Consent: Per the patient Procedure: The patient exercised on a Victor M protocol for 6 minutes achieving a peak heart rate of 155 bpm (108 % predicted maximal heart rate) with a peak blood pressure 142/70 mmHg and a peak MET capacity of 7 METs. The baseline ECG demonstrated normal sinus rhythm, poor R wave progression in the anterior leads, low voltage in the precordial leads. The peak exercise ECG demonstrated significant motion artifact making it uninterpretable for EKG changes of ischemia. EKG during recovery revealed return of EKG to baseline [There were no cardiac dysrhythmias pretest, during exercise, or recovery]. The functional capacity was considered normal for age. Patient had shortness of breath at baseline which got worse with exertion. Patient also had some chest discomfort in the retrosternal region. The examination was discontinued secondary to dyspnea. Impression: 1. Technically adequate (percent predicted maximal heart rate greater than 85%) exercise tolerance test 2. Stress test is uninterpretable for exercise-induced EKG changes of ischemia due to significant motion artifact. 3. The test test is positive for exercise-induced chest pain 4. Functional capacity is normal for age 5. Nuclear images pending Myocardial perfusion imaging study: Technique: The patient was injected with 11.8 mCi of technetium 99m Cardiolite and subsequently rest SPECT Cardiolite nuclear imaging was obtained in the horizontal long, vertical long, and short axis views. The patient exercised on a Victor M protocol. Please see above for details. The patient was injected with 32.9 mCi of technetium 99m Cardiolite and subsequently stress SPECT Cardiolite nuclear imaging was obtained in the horizontal long, vertical long, and short axis views. A gated Cardiolite study at peak stress was obtained. Interpretation: Rest and stress SPECT Cardiolite nuclear imaging status post realignment, normalization, and attenuation correction, demonstrates normal myocardial radioisotope uptake during rest. There appears to be mildly decreased radioisotope uptake in the apex on the stress images. Ejection fraction cannot be estimated as gating was not performed. Impression: 1. Mild apical ischemia cannot be excluded. 2. Ejection fraction could not be estimated as gating was not performed. This note was generated with [employer]ation software. It may contain incorrect words, spelling, and punctuation that were not noted in checking the note before signing.
== END ==
PROVIDERS: Family Provider Family Medicine; PCP Family Medicine; Referring Provider Family Medicine; Visit Provider Family Medicine
DX: R07.89 Other chest pain (principal)
CPT/HCPCS: 78452; 93017; A9500; A4216

== ENCOUNTER → 2019-01-01 13:52 | Outpatient (CLI) | payer MEDICARE, SELFPAY ==
[2019-01-01 13:51] VITALS: BMI 32.3
--- NOTE | 2019-01-01 13:56 | RAD_ITS ---
STUDY: X-RAY - PELVIS AND RIGHT HIP REASON FOR EXAM: Female, 78 years old. Fall, posterior hip pain. TECHNIQUE: 3 views of the pelvis and hip. COMPARISON: None. FINDINGS: There is a non-specific bowel gas pattern. There are a few small calcified phleboliths in the pelvic soft tissues. There are multilevel degenerative changes and mild levorotoscoliosis of the visualized lower lumbar spine. Normal bilateral iliac wings, sacroiliac joints and visualized sacrum. Normal bilateral superior and inferior pubic rami. Normal pubic symphysis. Normal bilateral ischial tuberosities. Normal visualized femoral head. Normal acetabulum. Normal hip joint. There is no demonstrated acute fracture. Obliquely oriented, mildly lobulated linear lucency projecting through the acetabulum on the dedicated hip images is likely artifact due to the overlapping anterior and posterior articular margins of the acetabulum. RAD/HIP, UNI W/ Pelvis 2-3 Views IMPRESSION: 1. No acute fracture of the pelvis or right hip. 2. Multilevel degenerative changes of the visualized lumbar spine. Electronically Signed: Francisco Henry MD at 14:34 EDT , Service support ,
== END ==
PROVIDERS: Family Provider Family Medicine; PCP Family Medicine; Visit Provider Physician Assistant
DX: M25.551 Pain in right hip (principal)
CPT/HCPCS: 73502

== ENCOUNTER 2019-02-01 13:45 | Outpatient (RCR) | payer MEDICARE, SELFPAY ==
[2019-01-01 15:52] VITALS: BMI 32.3
[2019-01-04 15:59] VITALS: BP 106/72; PULSE 99; RESP 18; TEMP 36.1; BMI 32.5
--- NOTE | 2019-01-04 20:01 | HP.PCM_ITS ---
(1) Puncture wound of right breast Status: Acute Current Visit: Yes Code(s): S21.031A - Puncture wound without foreign body of right breast, initial encounter (2) Posttraumatic hematoma of right breast Status: Acute Current Visit: Yes Code(s): S20.01XA - Contusion of right breast, initial encounter (3) Skin tear of right forearm without complication Status: Acute Current Visit: Yes Code(s): S51.811A - Laceration without foreign body of right forearm, initial encounter (4) Skin tear of right lower leg without complication Status: Acute Current Visit: Yes Code(s): S81.811A - Laceration without foreign body, right lower leg, initial encounter (5) Fall Status: Acute Current Visit: Yes Code(s): W19.XXXA - Unspecified fall, initial encounter (6) HTN (hypertension) Status: Chronic Current Visit: No Qualifiers: Code(s): I10 - Essential (primary) hypertension (7) Obesity (BMI 30.0-34.9) Status: Chronic Current Visit: No Code(s): E66.9 - Obesity, unspecified History of Present Illness Date of Service: 01/05/19 Chief Complaint: Right breast puncture, right breast hematoma, right right breast puncture, right breast hematoma, right forearm skin tear, right lower extremity skin tear History of Wound: This is a 78-year-old white female who presents to the wound healing center today with complaints of right forearm skin tear, right lower extremity skin tear, and right breast puncture laceration and right breast hem atoma. She is a past medical history significant for hypertension, hyperlipidemia, hypothyroidism. The patient states that her right breast puncture and right arm skin tear occurred approximately 4 days ago when she tripped and fell on a metal utensil that she had in her hand. She went and saw her clinical transformation specialist who updated her Tdap and referred her to the wound center for further management of the wounds. Patient also notes a skin tear that occurred yesterday after she tripped and fell and hit her right lower leg. She states that first the puncture site on the right breast bloody drainage, however she notes now that there is no further drainage and the site has closed. She has been using [id number] antibiotic ointment on the skin tears. Denies any other acute concerns at this time. Denies any signs of infection at this time. The patient otherwise denies any fever, chills, nausea, vomiting, shortness of breath, chest pain or pressure, palpitations, orthopnea, lower extremity edema, syncope or presyncopal episodes. Past Medical History Past Medical History: Chronic Problems (Last Reviewed 01/01/19 @ 15:30 by Olimpia Sheppard) HTN (hypertension) (Chronic) HLD (hyperlipidemia) (Chronic) Hypothyroidism (Chronic) Obesity (BMI 30.0-34.9) (Chronic) Surgical History: - - Bilateral foot surgery, cataract surgery bilaterally, right eye retinal tear and macular hole repair, left lower extremity surgery status post fall with trauma, anal fissure surgery, ear tube placement. Allergies/Adverse Reactions: Allergies erythromycin base Adverse Reaction (Verified 01/01/19 15:30) Vomiting morphine Adverse Reaction (Verified 01/01/19 15:30) Vomiting nitroglycerin Adverse Reaction (Verified 01/01/19 15:30) Vomiting Home Medications: Ambulatory Orders Medication Instructions Recorded Aspirin E.C. [Ecotrin] 81 mg PO DAILY@0800 10/14/17 Atorvastatin Calcium 20 mg PO DAILY 10/14/17 Enalapril Maleate 2.5 mg PO DAILY 10/14/17 Levothyroxine [Synthroid] 100 mcg PO 5X/DAY 10/14/17 Multivitamin [Daily Multiple 1 ea PO DAILY 10/14/17 Vitamin] baclofen 5 mg tablet PO #30 tab 01/01/19 febuxostat 40 mg tablet PO #90 tab 01/01/19 Prednisone 2.5 mg PO 01/04/19 - Family History Maternal - - Maternal family history of Alzheimer's disease, carotid disease, history of aortic aneurysm. Paternal - - Father with history of rheumatoid arthritis, aortic aneurysm. Sibling - - Sister with heart disease and history of aortic aneurysm. Smoking Status: Never smoker Review of Systems Constitutional: Denies: Chills, Fever, Weight Change Eyes: Denies: Pain, Vision Change HEENT: Denies: Difficulty Hearing, Difficulty Swallowing, Sinus Congestion Cardiovascular: Denies: Chest Pain, Palpitations Respiratory: Denies: Cough, Shortness of Breath Gastrointestinal: Denies: Diarrhea, Nausea, Vomiting Genitourinary: Denies: Dysuria, Hematuria Skin: Reports: Wounds - see HPI Endocrine: Denies: Heat/ Cold Intolerance, Polydipsia, Polyuria Hematologic/ Lymphatic: Denies: Easy Bruising, Easy Bleeding - Physical Exam Vital Signs Temp Pulse Resp BP 96.9 F L 99 18 106/72 01/04/19 15:59 01/04/19 15:59 01/04/19 15:59 01/04/19 15:59 General: Alert, Oriented x3, Cooperative, No apparent distress HEENT: PERRLA, EOMI Neck: Supple, No JVD, Negative Carotid Bruits Lungs: Clear to auscultation Cardiovascular: Regular rate, Regular Rhythm Abdomen: Soft, Non Tender Extremities: No edema, Capillary Refill Less than 3 Seconds Skin: Ulcer/ Wound - puncture wound to right breast healed and site is approximated, no drainage noted at this time, large amount of surrounding ecchymosis noted, no fluctuance or warmth or erythema noted at this time. Right forearm skin tear category 2 with slough and devitalized tissue noted in the wound bed, no erythema, purulent drainage, or warmth noted at this time, category 2 skin tear to the right lower extremity with adherent slough to wound bed, no signs of infection at this time. Wound Measurements and Assessment WC - Nurse 1 - General Ulcer Measurement Start: 01/04/19 15:50 Freq: Status: Active Protocol: Activity Type Activity Date Activity User E-Sign Co-Sign Detail Recorded Client Recorded Date Recorded By Document 01/04/19 15:59 DV [id number] 01/04/19 16:29 DV 01/04/19 15:59 Wound Center Nurse 1 [Ulcer Assessment] #2 RIGHT FOREARM -Combined with other wound No -Current Size (cm) - Length 3.0 -Current Size (cm) - Width 0.7 -Current Size (cm) - Depth 0.1 -Total Square Cm 2.10 -Photo Taken Yes -Epithelialization None Present -Tunneling No -Undermining/Tunneling No -Circular Undermining No -Classification - Thickness Full Thickness without Exposed Support Structure -Exudate Amt Small -Exudate Type Serosanguineous -Wound Margin Flat & Intact -Granulation Amt None Present (0 %) -Granulation Quality N/A -Slough/Fibrin Yes -Necrosis Amt Small (1-33%) -Necrotic Tissue Type Adherent Slough -Structure Exposed None/Limited to Skin Breakdown -Texture (Lorena-wound Skin Appearance) Assessed, Localized Edema ,Scarring -Moisture (Lorena-wound Skin Appearance Assessed, ) Weeping -Color (Lorena-wound Skin Appearance) Assessed, Erythema -Temperature (Lorena-wound Skin No Abnormality Appearance) (Pt Warm) -Tenderness on Palpation (Lorena-wound Yes Skin Appearance) -Ulcer Cleansing Rinsed/ Irrigated with Saline -Foul Odor after Cleansing No -Anesthetic Used 4% Lidocaine Solution #2 RIGHT BREAST HEMATOMA -Combined with other wound No -Current Size (cm) - Length 0.1 -Current Size (cm) - Width 0.1 -Current Size (cm) - Depth 0.1 -Total Square Cm 0.01 #1 RIGHT WILSON -Combined with other wound No -Current Size (cm) - Length 4.0 -Current Size (cm) - Width 4.5 -Current Size (cm) - Depth 0.1 -Total Square Cm 18.00 -Photo Taken Yes -Epithelialization None Present -Tunneling No -Undermining/Tunneling No -Circular Undermining No -Classification - Thickness Full Thickness without Exposed Support Structure -Exudate Amt Large -Exudate Type Serous -Wound Margin Indistinct, Non -Visible -Granulation Amt None Present (0 %) -Granulation Quality N/A -Slough/Fibrin No -Necrosis Amt None Present (0 %) -Necrotic Tissue Type Eschar -Texture (Lorena-wound Skin Appearance) Assessed, Localized Edema -Moisture (Lorena-wound Skin Appearance Assessed, ) Weeping -Color (Lorena-wound Skin Appearance) Assessed, Erythema -Temperature (Lorena-wound Skin No Abnormality Appearance) (Pt Warm) -Tenderness on Palpation (Lorena-wound No Skin Appearance) -Foul Odor after Cleansing No -Anesthetic Used 4% Lidocaine Solution [Edema Assessment] -Lower Limb Edema Present No WC - Nurse 2 - General Ulcer CM Notes Start: 01/04/19 15:50 Freq: Status: Active Protocol: Activity Type Activity Date Activity User E-Sign Co-Sign Detail Recorded Client Recorded Date Recorded By Document 01/04/19 16:44 AN [id number] 01/04/19 16:57 AN 01/04/19 16:44 Wound Center Nurse 2 [Procedure/Treatment] #2 RIGHT FOREARM -Time 16:54 -Correct Patient Yes -Correct Side, Site, Position Yes -Correct Procedure Yes -Procedure Performed Yes -Type of Procedure Debridement -Clinical Debridement Subcutaneous -Post Debridement Size (cm) - Length 1.5 -Post Debridement Size (cm) - Width 0.5 -Post Debridement Size (cm) - Depth 0.1 -Total Square Cm 0.75 -Wound/Ulcer Outcome Not Healed -Ulcer Cleansing Rinsed/ Irrigated with Saline -Foul Odor after Cleansing No -Bioengineered Tissue No -Bleeding Controlled with Pressure -Treatment Response Procedure Tolerated Well #1 RIGHT WILSON -Time 16:56 -Correct Patient Yes -Correct Side, Site, Position Yes -Correct Procedure Yes -Procedure Performed Yes -Type of Procedure Debridement -Clinical Debridement Subcutaneous -Post Debridement Size (cm) - Length 5 -Post Debridement Size (cm) - Width 6 -Post Debridement Size (cm) - Depth 0.1 -Total Square Cm 30 -Wound/Ulcer Outcome Not Healed -Ulcer Cleansing Rinsed/ Irrigated with Saline -Foul Odor after Cleansing No -Bioengineered Tissue No -Bleeding Controlled with Pressure -Treatment Response Procedure Tolerated Well [See Physician Procedure note for Specifics] Pain Scale: 0-10 Numeric [Pain] -Is Patient Pain Free? Yes Neurological: Neuro grossly intact Psych/Mental Status: Normal Affect, Appropriate, Alert and oriented to time, place, person, mood and affect Debridement Note Post-Debridement Measurements/Treatment WC - Nurse 2 - General Ulcer CM Notes Start: 01/04/19 15:50 Freq: Status: Active Protocol: Activity Type Activity Date Activity User E-Sign Co-Sign Detail Recorded Client Recorded Date Recorded By Document 01/04/19 16:44 AN [id number] 01/04/19 16:57 AN 01/04/19 16:44 Wound Center Nurse 2 #2 RIGHT FOREARM -Time 16:54 -Correct Patient Yes -Correct Side, Site, Position Yes -Correct Procedure Yes -Procedure Performed Yes -Type of Procedure Debridement -Clinical Debridement Subcutaneous -Post Debridement Size (cm) - Length 1.5 -Post Debridement Size (cm) - Width 0.5 -Post Debridement Size (cm) - Depth 0.1 -Total Square Cm 0.75 -Wound/Ulcer Outcome Not Healed -Ulcer Cleansing Rinsed/ Irrigated with Saline -Foul Odor after Cleansing No -Bioengineered Tissue No -Bleeding Controlled with Pressure -Treatment Response Procedure Tolerated Well #1 RIGHT WILSON -Time 16:56 -Correct Patient Yes -Correct Side, Site, Position Yes -Correct Procedure Yes -Procedure Performed Yes -Type of Procedure Debridement -Clinical Debridement Subcutaneous -Post Debridement Size (cm) - Length 5 -Post Debridement Size (cm) - Width 6 -Post Debridement Size (cm) - Depth 0.1 -Total Square Cm 30 -Wound/Ulcer Outcome Not Healed -Ulcer Cleansing Rinsed/ Irrigated with Saline -Foul Odor after Cleansing No -Bioengineered Tissue No -Bleeding Controlled with Pressure -Treatment Response Procedure Tolerated Well Pain Scale: 0-10 Numeric Is Patient Pain Free? Yes Wound debrided: Right foearm skin tear Type of Debridement: Excisional debridement Anesthesia Used: 5% Lidocaine Gel Depth: in the subcutaneous layer Percentage of wound debrided: 100 Instrument Used: 5mm curette Tissue Removed: slough and devitalized tissue Severity: Fat Layer Exposed Amount of bleeding with debridement: Mild Bleeding Controlled with: Pressure Patient tolerated procedure well - Additional Wound Wound debrided: right lower extremity skin tear Laterality: Right Type of Debridement: Excisional debridement Anesthesia Used: 5% Lidocaine Gel Depth: in the subcutaneous layer Percentage of wound debrided: 100 Instrument Used: 5mm curette Tissue Removed: slouogh and devitalized tissue Severity: Fat Layer Exposed Amount of bleeding with debridement: Mild Bleeding Controlled with: Pressure Patient tolerated procedure: Patient tolerated procedure well Assessment/Plan Active Problems (Last Reviewed 01/01/19 @ 15:30 by Olimpia Sheppard) Puncture wound of right breast (Acute) Posttraumatic hematoma of right breast (Acute) Skin tear of right forearm without complication (Acute) Skin tear of right lower leg without complication (Acute) Fall (Acute) Assessment: See above diagnoses Plan: The patient was seen and examined at the wound center today and was updated on the plan of care. A subcutaneous debridement was performed today. The patient tolerated the procedure well. The patients wound care will consist of: Applying hydrogel Adaptic and gauze to all skin tears, regarding the ecchymosis and prior hematoma in puncture to the right breast, advised utilizing adequate compression to the site and also utilizing warm compresses. Discussed signs and symptoms of infection that require urgent medical attention. Patient verbalized understanding. Will hold off on blood work and vascular studies at this time. Double layer Tubigrip's bilaterally for lower extremities. Patient educated on the importance of diet on wound healing and instructed to increase protein and vitamin C intake. Patient verbalized understanding. Patient will follow up at wound healing center in one week or sooner if needed. Did discuss following up with her PCP regarding her balance issues and recent falls. This note was generated with [employer] software. It may contain incorrect words, spelling, and punctuation that were not noted in checking the note before signing. Code Visit Office Visits / Consults: [id number] OV L4 Est [id number]: [id number] Laurel subq tissue 20 sq cm/<
[2019-01-11 15:16] VITALS: BP 122/66; PULSE 84; RESP 18; TEMP 36.1; BMI 32.5
--- NOTE | 2019-01-11 17:25 | PCM.WC.PN ---
(1) Puncture wound of right breast Status: Acute Code(s): S21.031A - Puncture wound without foreign body of right breast, initial encounter (2) Posttraumatic hematoma of right breast Status: Acute Code(s): S20.01XA - Contusion of right breast, initial encounter (3) Skin tear of right forearm without complication Status: Acute Code(s): S51.811A - Laceration without foreign body of right forearm, initial encounter (4) Skin tear of right lower leg without complication Status: Acute Code(s): S81.811A - Laceration without foreign body, right lower leg, initial encounter (5) Fall Status: Acute Code(s): W19.XXXA - Unspecified fall, initial encounter (6) HTN (hypertension) Status: Chronic Qualifiers: Code(s): I10 - Essential (primary) hypertension (7) Obesity (BMI 30.0-34.9) Status: Chronic Code(s): E66.9 - Obesity, unspecified (8) Skin tear of left hand without complication Status: Acute Code(s): S61.412A - Laceration without foreign body of left hand, initial encounter Type of Wound Date of Service: 01/11/19 Chief Complaint: Right breast puncture, right breast hematoma, right right breast puncture, right breast hematoma, right forearm skin tear, right lower extremity skin tear History of Wound: This is a 78-year-old white female who presents to the wound healing center today with complaints of right forearm skin tear, right lower extremity skin tear, and right breast puncture laceration and right breast hematoma. She is a past medical history significant for hypertension, hyperlipidemia, hypothyroidism. The patient states that her right breast puncture and right arm skin tear occurred approximately 4 days ago when she tripped and fell on a metal utensil that she had in her hand. She went and saw her plastic surgery specialist who updated her Tdap and referred her to the wound center for further management of the wounds. Patient also notes a skin tear that occurred yesterday after she tripped and fell and hit her right lower leg. She states that first the puncture site on the right breast bloody drainage, however she notes now that there is no further drainage and the site has closed. She has been using ifxn-smy-yltfizc antibiotic ointment on the skin tears. Denies any other acute concerns at this time. Denies any signs of infection at this time. The patient otherwise denies any fever, chills, nausea, vomiting, shortness of breath, chest pain or pressure, palpitations, orthopnea, lower extremity edema, syncope or presyncopal episodes. Progress of Wound: The patient's right forearm skin tear is now healed, she is concerned because there is more redness around her right lower extremity skin tear, she is not doing compression to her right breast hematoma, though remains healed at this time. She does note a new skin tear to her left dorsal hand that occurred after bumping the area on her sewing machine at home. Denies any signs of infection at this time. The patient otherwise denies any fever, chills, nausea, vomiting, shortness of breath, chest pain or pressure, palpitations, orthopnea, lower extremity edema, syncope or presyncopal episodes. - Physical Exam Vital Signs Temp Pulse Resp BP 97 F L 84 18 122/66 H 01/11/19 15:16 01/11/19 15:16 01/11/19 15:16 01/11/19 15:16 General: Alert, Oriented x3, Cooperative, No apparent distress HEENT: Atraumatic Oral: Moist Mucosa Cardiovascular: Regular rate Abdomen: Soft, Non Tender Skin: Ulcer/ Wound - Skin tear to left dorsal hand with adherent slough, skin tear to right lower extremity with adherent slough, some erythema appreciated over the periwound bed area, no warmth streaking or purulent drainage noted at this time, right breast hematoma palpated approximately 4 x 8 cm Neurological: Neuro grossly intact Psych/Mental Status: Normal Affect, Alert and oriented to time, place, person, mood and affect Debridement Note Post-Debridement Measurements/Treatment WC - Nurse 2 - General Ulcer CM Notes Start: 01/04/19 15:50 Freq: Status: Active Protocol: Activity Type Activity Date Activity User E-Sign Co-Sign Detail Recorded Client Recorded Date Recorded By Document 01/04/19 16:44 AN [id number] 01/04/19 16:57 AN 01/04/19 16:44 Wound Center Nurse 2 #2 RIGHT FOREARM -Time 16:54 -Correct Patient Yes -Correct Side, Site, Position Yes -Correct Procedure Yes -Procedure Performed Yes -Type of Procedure Debridement -Clinical Debridement Subcutaneous -Post Debridement Size (cm) - Length 1.5 -Post Debridement Size (cm) - Width 0.5 -Post Debridement Size (cm) - Depth 0.1 -Total Square Cm 0.75 -Wound/Ulcer Outcome Not Healed -Ulcer Cleansing Rinsed/ Irrigated with Saline -Foul Odor after Cleansing No -Bioengineered Tissue No -Bleeding Controlled with Pressure -Treatment Response Procedure Tolerated Well #1 RIGHT WILSON -Time 16:56 -Correct Patient Yes -Correct Side, Site, Position Yes -Correct Procedure Yes -Procedure Performed Yes -Type of Procedure Debridement -Clinical Debridement Subcutaneous -Post Debridement Size (cm) - Length 5 -Post Debridement Size (cm) - Width 6 -Post Debridement Size (cm) - Depth 0.1 -Total Square Cm 30 -Wound/Ulcer Outcome Not Healed -Ulcer Cleansing Rinsed/ Irrigated with Saline -Foul Odor after Cleansing No -Bioengineered Tissue No -Bleeding Controlled with Pressure -Treatment Response Procedure Tolerated Well Pain Scale: 0-10 Numeric Is Patient Pain Free? Yes Wound debrided: Right lower extremity skin tear Laterality: Right Type of Debridement: Excisional debridement Anesthesia Used: 5% Lidocaine Gel Depth: in the subcutaneous layer Percentage of wound debrided: 100 Instrument Used: 5mm curette Tissue Removed: Slough and devitalized tissue Severity: Fat Layer Exposed Amount of bleeding with debridement: Mild Bleeding Controlled with: Pressure Patient tolerated procedure well - Additional Wound Wound debrided: Left skin tear of dorsal hand Laterality: Left Type of Debridement: Excisional debridement Anesthesia Used: 5% Lidocaine Gel Depth: in the subcutaneous layer Percentage of wound debrided: 100 Instrument Used: 5mm curette Tissue Removed: -Devitalized tissue Severity: Fat Layer Exposed Amount of bleeding with debridement: Mild Bleeding Controlled with: Pressure Patient tolerated procedure: Patient tolerated procedure well Assessment/Plan Assessment: See above diagnoses Plan: The patient was seen and examined at the wound center today and was updated on the plan of care. A subcutaneous debridement was performed today. The patient tolerated the procedure well. The patients wound care will consist of: Applying Gladys and gauze to all skin tears, regarding the ecchymosis and prior hematoma in puncture to the right breast, advised utilizing adequate compression to the site and also utilizing warm compresses. Discussed signs and symptoms of infection that require urgent medical attention. Patient verbalized understanding. Did collect a wound culture of the right lower extremity skin tear and due to the periwound bed erythema, started empirically on Keflex. Will hold off on blood work and vascular studies at this time. Double layer Tubigrip's bilaterally for lower extremities. Patient educated on the importance of diet on wound healing and instructed to increase protein and vitamin C intake. Patient verbalized understanding. Patient will follow up at wound healing center in one week or sooner if needed. Did discuss following up with her PCP regarding her balance issues and recent falls. This note was generated with [employer] dictation software. It may contain incorrect words, spelling, and punctuation that were not noted in checking the note before signing. Code Visit [id number]-[id number]: [id number] Laurel subq tissue 20 sq cm/<
[2019-01-12 17:47] LABS: M R Staph aureus DNA By PCR Negative (Negative); Probe Check PASS; Specimen Processing Control PASS; Staph aureus DNA By PCR NEGATIVE (Negative)
[2019-01-18 15:31] VITALS: BP 116/72; PULSE 85; RESP 16; TEMP 36.2; BMI 32.5
--- NOTE | 2019-01-18 17:46 | PCM.WC.PN ---
(1) Puncture wound of right breast Status: Acute Current Visit: Yes Code(s): S21.031A - Puncture wound without foreign body of right breast, initial encounter (2) Posttraumatic hematoma of right breast Status: Acute Current Visit: Yes Code(s): S20.01XA - Contusion of right breast, initial encounter (3) Skin tear of right forearm without complication Status: Acute Current Visit: Yes Code(s): S51.811A - Laceration without foreign body of right forearm, initial encounter (4) Skin tear of right lower leg without complication Status: Acute Current Visit: Yes Code(s): S81.811A - Laceration without foreign body, right lower leg, initial encounter (5) Fall Status: Acute Current Visit: No Code(s): W19.XXXA - Unspecified fall, initial encounter (6) HTN (hypertension) Status: Chronic Current Visit: No Qualifiers: Code(s): I10 - Essential (primary) hypertension (7) Obesity (BMI 30.0-34.9) Status: Chronic Current Visit: No Code(s): E66.9 - Obesity, unspecified (8) Skin tear of left hand without complication Status: Acute Current Visit: Yes Code(s): S61.412A - Laceration without foreign body of left hand, initial encounter Type of Wound Date of Service: 01/18/19 Chief Complaint: Right breast puncture, right breast hematoma, right right breast puncture, right breast hematoma, right forearm skin tear, right lower extremity skin tear History of Wound: This is a 78-year-old white female who presents to the wound healing center today with complaints of right forearm skin tear, right lower extremity skin tear, and right breast puncture laceration and right breast hematoma. She is a past medical history significant for hypertension, hyperlipidemia, hypothyroidism. The patient states that her right breast puncture and right arm skin tear occurred approximately 4 days ago when she tripped and fell on a metal utensil that she had in her hand. She went and saw her head orthopedic team physician who updated her Tdap and referred her to the wound center for further management of the wounds. Patient also notes a skin tear that occurred yesterday after she tripped and fell and hit her right lower leg. She states that first the puncture site on the right breast bloody drainage, however she notes now that there is no further drainage and the site has closed. She has been using [id number] antibiotic ointment on the skin tears. Denies any other acute concerns at this time. Denies any signs of infection at this time. The patient otherwise denies any fever, chills, nausea, vomiting, shortness of breath, chest pain or pressure, palpitations, orthopnea, lower extremity edema, syncope or presyncopal episodes. Progress of Wound: The patient's right forearm skin tear is now healed, she is tolerating the Keflex for her right lower extremity cellulitis and notes an improvement in pain and redness, however cultures were reviewed and showed Klebsiella and the antibiotic will be switched to Cipro today, she is not doing compression to her right breast hematoma, though remains healed at this time. Her skin tear to her left dorsal hand is improving as well without any signs of infection. Denies any signs of infection at this time. The patient otherwise denies any fever, chills, nausea, vomiting, shortness of breath, chest pain or pressure, palpitations, orthopnea, lower extremity edema, syncope or presyncopal episodes. - Physical Exam Vital Signs Temp Pulse Resp BP 97.1 F L 85 16 116/72 01/18/19 15:31 01/18/19 15:31 01/18/19 15:31 01/18/19 15:31 General: Alert, Oriented x3, Cooperative, No apparent distress HEENT: Atraumatic Oral: Moist Mucosa Lungs: Clear to auscultation Cardiovascular: Regular rate Abdomen: Soft, Non Tender Extremities: No clubbing, No cyanosis, No edema Skin: Ulcer/ Wound - Skin tear to left hand with adherent slough, no signs of infection at this time, right lower extremity skin tear/ulceration with adherent slough, periwound bed less erythema this week, no purulent drainage or discharge Wound Measurements and Assessment WC - Nurse 1 - General Ulcer Measurement Start: 01/04/19 15:50 Freq: Status: Active Protocol: Activity Type Activity Date Activity User E-Sign Co-Sign Detail Recorded Client Recorded Date Recorded By Document 01/18/19 15:31 [facility] [id number] 01/18/19 15:45 [facility] 01/18/19 15:31 Wound Center Nurse 1 [Ulcer Assessment] #3 Left hand anterior -Combined with other wound No -Current Size (cm) - Length 0.1 -Current Size (cm) - Width 0.1 -Current Size (cm) - Depth 0.1 -Total Square Cm 0.01 -Photo Taken No -Epithelialization None Present -Tunneling No -Undermining/Tunneling No -Circular Undermining No -Exudate Amt None Present -Wound Margin Flat & Intact -Granulation Amt None Present (0 %) -Slough/Fibrin Yes -Necrosis Amt Large (67-100%) -Necrotic Tissue Type Adherent Slough -Texture (Lorena-wound Skin Appearance) Assessed, Scarring -Moisture (Lorena-wound Skin Appearance Assessed,Dry/ ) Scaly -Color (Lorena-wound Skin Appearance) Assessed -Temperature (Lorena-wound Skin No Abnormality Appearance) (Pt Warm) -Tenderness on Palpation (Lorena-wound No Skin Appearance) -Ulcer Cleansing Rinsed/ Irrigated with Saline -Foul Odor after Cleansing No -Anesthetic Used 4% Lidocaine Solution #2 RIGHT FOREARM -Combined with other wound No -Current Size (cm) - Length 0.1 -Current Size (cm) - Width 0.1 -Current Size (cm) - Depth 0.1 -Total Square Cm 0.01 -Photo Taken No -Epithelialization Large 67-100% -Tunneling No -Undermining/Tunneling No -Circular Undermining No -Exudate Amt None Present -Temperature (Lorena-wound Skin No Abnormality Appearance) (Pt Warm) -Tenderness on Palpation (Lorena-wound No Skin Appearance) #1 RIGHT WILSON -Combined with other wound No -Current Size (cm) - Length 3.9 -Current Size (cm) - Width 3.1 -Current Size (cm) - Depth 0.8 -Total Square Cm 12.09 -Photo Taken No -Epithelialization None Present -Tunneling No -Undermining/Tunneling No -Circular Undermining No -Exudate Amt Medium -Exudate Type Serosanguineous -Wound Margin Distinct, Outline Attached -Granulation Amt Small (1-33%) -Granulation Quality Red -Slough/Fibrin Yes -Necrosis Amt Medium (34-66%) -Necrotic Tissue Type Eschar -Texture (Lorena-wound Skin Appearance) Assessed, Scarring -Moisture (Lorena-wound Skin Appearance Assessed ) -Color (Lorena-wound Skin Appearance) Erythema -Temperature (Lorena-wound Skin No Abnormality Appearance) (Pt Warm) -Tenderness on Palpation (Lorena-wound Yes Skin Appearance) -Ulcer Cleansing Rinsed/ Irrigated with Saline -Foul Odor after Cleansing No -Anesthetic Used 4% Lidocaine Solution,5% Lidocaine Gel Neurological: Neuro grossly intact Psych/Mental Status: Normal Affect, Appropriate, Alert and oriented to time, place, person, mood and affect Debridement Note Post-Debridement Measurements/Treatment WC - Nurse 2 - General Ulcer CM Notes Start: 01/04/19 15:50 Freq: Status: Active Protocol: Activity Type Activity Date Activity User E-Sign Co-Sign Detail Recorded Client Recorded Date Recorded By Document 01/04/19 16:44 AN [id number] 01/04/19 16:57 AN 01/04/19 16:44 Wound Center Nurse 2 #2 RIGHT FOREARM -Time 16:54 -Correct Patient Yes -Correct Side, Site, Position Yes -Correct Procedure Yes -Procedure Performed Yes -Type of Procedure Debridement -Clinical Debridement Subcutaneous -Post Debridement Size (cm) - Length 1.5 -Post Debridement Size (cm) - Width 0.5 -Post Debridement Size (cm) - Depth 0.1 -Total Square Cm 0.75 -Wound/Ulcer Outcome Not Healed -Ulcer Cleansing Rinsed/ Irrigated with Saline -Foul Odor after Cleansing No -Bioengineered Tissue No -Bleeding Controlled with Pressure -Treatment Response Procedure Tolerated Well #1 RIGHT WILSON -Time 16:56 -Correct Patient Yes -Correct Side, Site, Position Yes -Correct Procedure Yes -Procedure Performed Yes -Type of Procedure Debridement -Clinical Debridement Subcutaneous -Post Debridement Size (cm) - Length 5 -Post Debridement Size (cm) - Width 6 -Post Debridement Size (cm) - Depth 0.1 -Total Square Cm 30 -Wound/Ulcer Outcome Not Healed -Ulcer Cleansing Rinsed/ Irrigated with Saline -Foul Odor after Cleansing No -Bioengineered Tissue No -Bleeding Controlled with Pressure -Treatment Response Procedure Tolerated Well Pain Scale: 0-10 Numeric Is Patient Pain Free? Yes Wound debrided: Left hand skin tear Type of Debridement: Excisional debridement Anesthesia Used: 5% Lidocaine Gel Depth: in the subcutaneous layer Percentage of wound debrided: 100 Instrument Used: 5mm curette Tissue Removed: Slough and devitalized tissue Severity: Fat Layer Exposed Amount of bleeding with debridement: Mild Bleeding Controlled with: Pressure Patient tolerated procedure well - Additional Wound Wound debrided: Right lower extremity skin tear Laterality: Right Type of Debridement: Excisional debridement Anesthesia Used: 5% Lidocaine Gel Depth: in the subcutaneous layer Percentage of wound debrided: 100 Instrument Used: 5mm curette Tissue Removed: Slough and devitalized tissue Severity: Fat Layer Exposed Amount of bleeding with debridement: Mild Bleeding Controlled with: Pressure Patient tolerated procedure: Patient tolerated procedure well Assessment/Plan Active Problems (Last Reviewed 01/01/19 @ 15:30 by Olimpia Sheppard) Puncture wound of right breast (Acute) Posttraumatic hematoma of right breast (Acute) Skin tear of right forearm without complication (Acute) Skin tear of right lower leg without complication (Acute) Skin tear of left hand without complication (Acute) Assessment: See above diagnoses Plan: The patient was seen and examined at the wound center today and was updated on the plan of care. A subcutaneous debridement was performed today. The patient tolerated the procedure well. The patients wound care will consist of: Applying Gladys and gauze to all skin tears, regarding the ecchymosis and prior hematoma in puncture to the right breast, advised utilizing adequate compression to the site and also utilizing warm compresses. Discussed signs and symptoms of infection that require urgent medical attention. Patient verbalized understanding. Did collect a wound culture of the right lower extremity skin tear and due to the periwound bed erythema, showed Klebsiella and her antibiotic was changed to Cipro. Will hold off on blood work and vascular studies at this time. Double layer Tubigrip's bilaterally for lower extremities. Patient educated on the importance of diet on wound healing and instructed to increase protein and vitamin C intake. Patient verbalized understanding. Patient will follow up at wound healing center in one week or sooner if needed. Did discuss following up with her PCP regarding her balance issues and recent falls. Due to the delayed healing in fact that patient has failed standard wound care for 4 weeks, will apply for the use of an advanced skin substitute this note was generated with [employer] software. It may contain incorrect words, spelling, and punctuation that were not noted in checking the note before signing. Code Visit [id number]: [id number] Laurel subq tissue 20 sq cm/<
[2019-01-25 14:57] VITALS: BP 123/69; PULSE 70; RESP 16; TEMP 36.3; BMI 32.5
--- NOTE | 2019-01-25 15:38 | PN.PCM_ITS ---
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 Status: Acute Current Visit: Yes Code(s): I83.009 - Varicose veins of unspecified lower extremity with ulcer of unspecified site; L97.909 - Non- pressure chronic ulcer of unspecified part of unspecified lower leg with unspecified severity (2) Puncture wound of right breast Status: Acute Current Visit: Yes Code(s): S21.031A - Puncture wound without foreign body of right breast, initial encounter (3) Posttraumatic hematoma of right breast Status: Acute Current Visit: Yes Code(s): S20.01XA - Contusion of right breast, initial encounter (4) Skin tear of right forearm without complication Status: Acute Current Visit: Yes Code(s): S51.811A - Laceration without foreign body of right forearm, initial encounter (5) Skin tear of right lower leg without complication Status: Acute Current Visit: Yes Code(s): S81.811A - Laceration without foreign body, right lower leg, initial encounter (6) Fall Status: Acute Current Visit: No Code(s): W19.XXXA - Unspecified fall, i nitial encounter (7) HTN (hypertension) Status: Chronic Current Visit: No Qualifiers: Code(s): I10 - Essential (primary) hypertension (8) Obesity (BMI 30.0-34.9) Status: Chronic Current Visit: No Code(s): E66.9 - Obesity, unspecified Type of Wound Date of Service: 01/25/19 Chief Complaint: Right breast puncture, right breast hematoma, right right breast puncture, right breast hematoma, right forearm skin tear, right lower extremity ulcer with varicose veins s/p traumatic skin tear History of Wound: This is a 78-year-old white female who presents to the wound healing center today with complaints of right forearm skin tear, right lower extremity skin tear, and right breast puncture laceration and right breast hematoma. She is a past medical history significant for hypertension, hyperlipidemia, hypothyroidism. The patient states that her right breast puncture and right arm skin tear occurred approximately 4 days ago when she tripped and fell on a metal utensil that she had in her hand. She went and saw her policy specialist who updated her Tdap and referred her to the wound center for further management of the wounds. Patient also notes a skin tear that occurred yesterday after she tripped and fell and hit her right lower leg. She states that first the puncture site on the right breast bloody drainage, however she notes now that there is no further drainage and the site has closed. She has been using [id number] antibiotic ointment on the skin tears. Denies any other acute concerns at this time. Denies any signs of infection at this time. The patient otherwise denies any fever, chills, nausea, vomiting, shortness of breath, chest pain or pressure, palpitations, orthopnea, lower extremity edema, syncope or presyncopal episodes. Progress of Wound: Ulcers stable. The patient's right forearm skin tear is now healed, she was unable to tolerate the Cipro, she is not doing compression to her right breast hematoma, though remains healed at this time. Her skin tear to her left dorsal hand is now healed without any signs of infection. Denies any signs of infection at this time. The patient otherwise denies any fever, chills, nausea, vomiting, shortness of breath, chest pain or pressure, palpitations, orthopnea, lower extremity edema, syncope or presyncopal episodes. - Physical Exam Vital Signs Temp Pulse Resp BP 97.3 F L 70 16 123/69 H 01/25/19 14:57 01/25/19 14:57 01/25/19 14:57 01/25/19 14:57 General: Alert, Oriented x3, Cooperative, No apparent distress HEENT: Atraumatic Oral: Moist Mucosa Lungs: Clear to auscultation Cardiovascular: Regular rate Abdomen: Soft Extremities: No clubbing, No cyanosis, No edema Skin: Ulcer/ Wound - Ulceration to right anterior lower extremity with chronic venous changes and varicosities with adherent slough, no signs of obvious infection at this time, slight erythema to the periwound bed less than 1 cm, no streaking warmth or purulent drainage or foul odor Wound Measurements and Assessment WC - Nurse 1 - General Ulcer Measurement Start: 01/04/19 15:50 Freq: Status: Active Protocol: Activity Type Activity Date Activity User E-Sign Co-Sign Detail Recorded Client Recorded Date Recorded By Document 01/25/19 14:57 [facility] [id number] 01/25/19 15:06 [facility] 01/25/19 14:57 Wound Center Nurse 1 [Ulcer Assessment] #3 Left hand anterior -Combined with other wound No -Current Size (cm) - Length 0 -Current Size (cm) - Width 0 -Current Size (cm) - Depth 0 -Total Square Cm 0 -Epithelialization Large 67-100% -Tunneling No -Undermining/Tunneling No -Circular Undermining No #1 RIGHT WILSON -Combined with other wound No -Current Size (cm) - Length 3.3 -Current Size (cm) - Width 2.4 -Current Size (cm) - Depth 0.3 -Total Square Cm 7.92 -Photo Taken No -Epithelialization None Present -Tunneling No -Undermining/Tunneling No -Circular Undermining No -Exudate Amt Medium -Exudate Type Serosanguineous -Wound Margin Distinct, Outline Attached -Granulation Amt Medium (34-66%) -Granulation Quality Red -Slough/Fibrin Yes -Necrosis Amt Small (1-33%) -Necrotic Tissue Type Adherent Slough -Texture (Lorena-wound Skin Appearance) Assessed, Scarring -Moisture (Lorena-wound Skin Appearance Assessed,Dry/ ) Scaly -Color (Lorena-wound Skin Appearance) Assessed, Erythema -Temperature (Lorena-wound Skin No Abnormality Appearance) (Pt Warm) -Tenderness on Palpation (Lorena-wound No Skin Appearance) -Ulcer Cleansing Rinsed/ Irrigated with Saline -Foul Odor after Cleansing No -Anesthetic Used 4% Lidocaine Solution [Edema Assessment] -Lower Limb Edema Present Yes -Right Calf (cm) 37.9 -Right Ankle (cm) 20.1 WC - Nurse 2 - General Ulcer CM Notes Start: 01/04/19 15:50 Freq: Status: Active Protocol: Activity Type Activity Date Activity User E-Sign Co-Sign Detail Recorded Client Recorded Date Recorded By Document 01/25/19 15:24 MW [id number] 01/25/19 15:29 MW 01/25/19 15:24 Wound Center Nurse 2 [Procedure/Treatment] #3 Left hand anterior -Time 15:24 -Correct Patient Yes -Correct Side, Site, Position Yes -Correct Procedure Yes -Procedure Performed No -Post Debridement Size (cm) - Length 0 -Post Debridement Size (cm) - Width 0 -Post Debridement Size (cm) - Depth 0 -Total Square Cm 0 -Wound/Ulcer Outcome Healed- Epithelialized #1 RIGHT WILSON -Time 15:25 -Correct Patient Yes -Correct Side, Site, Position Yes -Correct Procedure Yes -Procedure Performed Yes -Type of Procedure Debridement -Clinical Debridement Subcutaneous -Post Debridement Size (cm) - Length 3.5 -Post Debridement Size (cm) - Width 3.5 -Post Debridement Size (cm) - Depth 0.3 -Total Square Cm 12.25 -Wound/Ulcer Outcome Not Healed -Ulcer Cleansing Rinsed/ Irrigated with Saline -Foul Odor after Cleansing No -Bioengineered Tissue No -Bleeding Controlled with Pressure -Offloading No -Treatment Response Procedure Tolerated Well [See Physician Procedure note for Specifics] Pain Scale: 0-10 Numeric [Pain] -Is Patient Pain Free? Yes Neurological: Neuro grossly intact Psych/Mental Status: Normal Affect, Appropriate, Alert and oriented to time, place, person, mood and affect Debridement Note Post-Debridement Measurements/Treatment WC - Nurse 2 - General Ulcer CM Notes Start: 01/04/19 15:50 Freq: Status: Active Protocol: Activity Type Activity Date Activity User E-Sign Co-Sign Detail Recorded Client Recorded Date Recorded By Document 01/04/19 16:44 AN [id number] 01/04/19 16:57 AN Document 01/18/19 18:06 AN [id number] 01/18/19 18:08 AN Document 01/25/19 15:24 MW [id number] 01/25/19 15:29 MW 01/04/19 01/18/19 01/25/19 16:44 18:06 15:24 Wound Center Nurse 2 #3 Left hand anterior -Time 14:00 15:24 -Correct Patient Yes Yes -Correct Side, Site, Position Yes Yes -Correct Procedure Yes Yes -Procedure Performed Yes No -Type of Procedure Debridement -Clinical Debridement Subcutaneous -Post Debridement Size (cm) - Length 0.2 0 -Post Debridement Size (cm) - Width 0.1 0 -Post Debridement Size (cm) - Depth 0.1 0 -Total Square Cm 0.02 0 -Wound/Ulcer Outcome Not Healed Healed- Epithelialized -Ulcer Cleansing Rinsed/ Irrigated with Saline -Foul Odor after Cleansing No -Bioengineered Tissue No -Bleeding Controlled with Pressure -Offloading No -Treatment Response Procedure Tolerated Well #2 RIGHT FOREARM -Time 16:54 -Correct Patient Yes -Correct Side, Site, Position Yes -Correct Procedure Yes -Procedure Performed Yes -Type of Procedure Debridement -Clinical Debridement Subcutaneous -Post Debridement Size (cm) - Length 1.5 -Post Debridement Size (cm) - Width 0.5 -Post Debridement Size (cm) - Depth 0.1 -Total Square Cm 0.75 -Wound/Ulcer Outcome Not Healed -Ulcer Cleansing Rinsed/ Irrigated with Saline -Foul Odor after Cleansing No -Bioengineered Tissue No -Bleeding Controlled with Pressure -Treatment Response Procedure Tolerated Well #1 RIGHT WILSON -Time 16:56 18:07 15:25 -Correct Patient Yes Yes Yes -Correct Side, Site, Position Yes Yes Yes -Correct Procedure Yes Yes Yes -Procedure Performed Yes Yes Yes -Type of Procedure Debridement Debridement Debridement -Clinical Debridement Subcutaneous Subcutaneous Subcutaneous -Post Debridement Size (cm) - Length 5 3.2 3.5 -Post Debridement Size (cm) - Width 6 3.0 3.5 -Post Debridement Size (cm) - Depth 0.1 0.8 0.3 -Total Square Cm 30 9.60 12.25 -Wound/Ulcer Outcome Not Healed Not Healed Not Healed -Ulcer Cleansing Rinsed/ Rinsed/ Rinsed/ Irrigated with Irrigated with Irrigated with Saline Saline Saline -Foul Odor after Cleansing No No No -Bioengineered Tissue No No No -Bleeding Controlled with Pressure Pressure Pressure -Offloading No No -Treatment Response Procedure Procedure Procedure Tolerated Well Tolerated Well Tolerated Well Pain Scale: 0-10 Numeric Is Patient Pain Free? Yes Yes Yes Wound debrided: Right lower extremity ulceration Laterality: Right Type of Debridement: Excisional debridement Anesthesia Used: 5% Lidocaine Gel Depth: in the subcutaneous layer Percentage of wound debrided: 100 Instrument Used: 5mm curette Tissue Removed: Slough and devitalized tissue Severity: Fat Layer Exposed Amount of bleeding with debridement: Mild Bleeding Controlled with: Pressure Patient tolerated procedure well Assessment/Plan Active Problems (Last Reviewed 01/01/19 @ 15:30 by Olimpia Sheppard) Varicose veins of lower extremity with ulcer (Acute) Puncture wound of right breast (Acute) Posttraumatic hematoma of right breast (Acute) Skin tear of right forearm without complication (Acute) Skin tear of right lower leg without complication (Acute) Assessment: See above diagnoses Plan: The patient was seen and examined at the wound center today and was updated on the plan of care. A subcutaneous debridement was performed today. The patient tolerated the procedure well. The patients wound care will consist of: Applying Gladys and gauze to ulceration, regarding the ecchymosis and prior hematoma in puncture to the right breast, advised utilizing adequate compression to the site and also utilizing warm compresses. Discussed signs and symptoms of infection that require urgent medical attention. Patient verbalized understanding. Did collect a wound culture of the right lower extremity skin tear and due to the periwound bed erythema, showed Klebsiella and her antibiotic was changed to Cipro which she only tolerated for a couple days. Will hold off on blood work and vascular studies at this time. Double layer Tubigrip's bilaterally for lower extremities. Patient educated on the importance of diet on wound healing and instructed to increase protein and vitamin C intake. Patient verbalized understanding. Patient will follow up at wound healing center in one week or sooner if needed. Did discuss following up with her PCP regarding her balance issues and recent falls. Due to the delayed healing in fact that patient has failed standard wound care for 4 weeks now, will apply for the use of an advanced skin substitute this note was generated with [employer] dictation software. It may contain incorrect words, spelling, and punctuation that were not noted in checking the note before signing. Code Visit 111xxx-[id number]: [id number] Laurel subq tissue 20 sq cm/<
[2019-02-01 13:42] VITALS: BP 136/63; PULSE 70; RESP 18; TEMP 36.6; BMI 32.5
--- NOTE | 2019-02-01 15:00 | RAD_ITS ---
STUDY: X-RAY - RIGHT TIBIA AND FIBULA REASON FOR EXAM: Female, 78 years old. Nonhealing ulcer right lower leg midshaft laterally, scratched by dog one month ago. Has been getting debridement since then but not healing. TECHNIQUE: 2 view(s) of the tibia and fibula were obtained. COMPARISON: None. FINDINGS: Mild osteopenia. Tibia and fibula otherwise unremarkable. Knee joint and ankle joint unremarkable. No significant degenerative features. Vascular calcifications are present in the tibioperoneal distribution. There is no visible ulceration, no deep soft tissue gas or radiodense foreign body. There is no clearly defined subcutaneous soft tissue edema. RAD/Tibia & Fibula 2 Views IMPRESSION: No acute radiographic abnormality. There is evidence of peripheral arterial disease. Electronically Signed: Terrence Ross MD at 15:39 EDT Tel , Service support ,
--- NOTE | 2019-02-01 19:31 | PN.PCM_ITS ---
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 Status: Acute Code(s): I83.009 - Varicose veins of unspecified lower extremity with ulcer of unspecified site; L97.909 - Non-pressure chronic ulcer of unspecified part of unspecified lower leg with unspecified severity (2) Puncture wound of right breast Status: Acute Code(s): S21.031A - Puncture wound without foreign body of right breast, initial encounter (3) Posttraumatic hematoma of right breast Status: Acute Code(s): S20.01XA - Contusion of right breast, initial encounter (4) Skin tear of right forearm without complication Status: Acute Code(s): S51.811A - Laceration without foreign body of right forearm, initial encounter (5) Skin tear of right lower leg without complication Status: Acute Code(s): S81.811A - Laceration without foreign body, right lower leg, initial encounter (6) Fall Status: Acute Code(s): W19.XXXA - Unspecified fall, initial encounter (7) HTN (hypertension) Status: Chronic Qualifiers: Code(s): I10 - Essential (primary) hypertension (8) Obesity (BMI 30.0-34.9) Status: Chronic Code(s): E66.9 - Obesity, unspecified (9) PAD (peripheral artery disease) Status: Acute Code(s): I73.9 - Peripheral vascular disease, unspecified Type of Wound Date of Service: 02/01/19 Chief Complaint: Right breast puncture, right breast hematoma, right right breast puncture, right breast hematoma, right forearm skin tear, right lower extremity ulcer with varicose veins s/p traumatic skin tear History of Wound: This is a 78-year-old white female who presents to the wound healing center today with complaints of right forearm skin tear, right lower extremity skin tear, and right breast puncture laceration and right breast hematoma. She is a past medical history significant for hypertension, hyperlipidemia, hypothyroidism. The patient states that her right breast puncture and right arm skin tear occurred approximately 4 days ago when she tripped and fell on a metal utensil that she had in her hand. She went and saw her email production specialist who updated her Tdap and referred her to the wound center for further management of the wounds. Patient also notes a skin tear that occurred yesterday after she tripped and fell and hit her right lower leg. She states that first the puncture site on the right breast bloody drainage, however she notes now that there is no further drainage and the site has closed. She has been using [id number] antibiotic ointment on the skin tears. Denies any other acute concerns at this time. Denies any signs of infection at this time. The patient otherwise denies any fever, chills, nausea, vomiting, shortness of breath, chest pain or pressure, palpitations, orthopnea, lower extremity edema, syncope or presyncopal episodes. Progress of Wound: Ulcer stable. The patient's right forearm skin tear remains healed, she was unable to tolerate the Cipro, she is not doing compression to her right breast hematoma, though remains healed at this time. Her skin tear to her left dorsal hand remains healed without any signs of infection. Denies any signs of infection at this time. The patient otherwise denies any fever, chills, nausea, vomiting, shortness of breath, chest pain or pressure, palpitations, orthopnea, lower extremity edema, syncope or presyncopal episodes. The patient did note an increase in bone pain underneath her ulceration, a x- ray was ordered which was within normal limits, however did show evidence of per ipheral arterial disease. - Physical Exam Vital Signs Temp Pulse Resp BP 97.8 F 70 18 136/63 H 02/01/19 13:42 02/01/19 13:42 02/01/19 13:42 02/01/19 13:42 General: Alert, Oriented x3, Cooperative, No apparent distress HEENT: Atraumatic Oral: Moist Mucosa Lungs: Clear to auscultation, Normal air movement Cardiovascular: Regular rate Abdomen: Soft, Non Tender Extremities: No clubbing, No cyanosis, Edema - generalized blle edema, Peripheral Pulses Normal Skin: Ulcer/ Wound - Ulceration to right lower extremity with adherent slough, no signs of infection at this time, periwound bed erythema is now resolved without any redness, streaking, or warmth noted. Patient does continue to have excessive pain. Musculoskeletal: No Tenderness to Palpation of Joints or Extremities Neurological: Deep Tendon Reflexes 2+/4 and Symmetrical Psych/Mental Status: Normal Affect, Appropriate, Alert and oriented to time, place, person, mood and affect Debridement Note Post-Debridement Measurements/Treatment WC - Nurse 2 - General Ulcer CM Notes Start: 01/04/19 15:50 Freq: Status: Active Protocol: Activity Type Activity Date Activity User E-Sign Co-Sign Detail Recorded Client Recorded Date Recorded By Document 01/04/19 16:44 AN [id number] 01/04/19 16:57 AN Document 01/18/19 18:06 AN [id number] 01/18/19 18:08 AN Document 01/25/19 15:24 MW [id number] 01/25/19 15:29 MW Document 02/01/19 14:08 MW [id number] 02/01/19 14:11 MW 01/04/19 01/18/19 01/25/19 16:44 18:06 15:24 Wound Center Nurse 2 #3 Left hand anterior -Time 14:00 15:24 -Correct Patient Yes Yes -Correct Side, Site, Position Yes Yes -Correct Procedure Yes Yes -Procedure Performed Yes No -Type of Procedure Debridement -Clinical Debridement Subcutaneous -Post Debridement Size (cm) - Length 0.2 0 -Post Debridement Size (cm) - Width 0.1 0 -Post Debridement Size (cm) - Depth 0.1 0 -Total Square Cm 0.02 0 -Wound/Ulcer Outcome Not Healed Healed- Epithelialized -Ulcer Cleansing Rinsed/ Irrigated with Saline -Foul Odor after Cleansing No -Bioengineered Tissue No -Bleeding Controlled with Pressure -Offloading No -Treatment Response Procedure Tolerated Well #2 RIGHT FOREARM -Time 16:54 -Correct Patient Yes -Correct Side, Site, Position Yes -Correct Procedure Yes -Procedure Performed Yes -Type of Procedure Debridement -Clinical Debridement Subcutaneous -Post Debridement Size (cm) - Length 1.5 -Post Debridement Size (cm) - Width 0.5 -Post Debridement Size (cm) - Depth 0.1 -Total Square Cm 0.75 -Wound/Ulcer Outcome Not Healed -Ulcer Cleansing Rinsed/ Irrigated with Saline -Foul Odor after Cleansing No -Bioengineered Tissue No -Bleeding Controlled with Pressure -Treatment Response Procedure Tolerated Well #1 RIGHT WILSON -Time 16:56 18:07 15:25 -Correct Patient Yes Yes Yes -Correct Side, Site, Position Yes Yes Yes -Correct Procedure Yes Yes Yes -Procedure Performed Yes Yes Yes -Type of Procedure Debridement Debridement Debridement -Clinical Debridement Subcutaneous Subcutaneous Subcutaneous -Post Debridement Size (cm) - Length 5 3.2 3.5 -Post Debridement Size (cm) - Width 6 3.0 3.5 -Post Debridement Size (cm) - Depth 0.1 0.8 0.3 -Total Square Cm 30 9.60 12.25 -Wound/Ulcer Outcome Not Healed Not Healed Not Healed -Ulcer Cleansing Rinsed/ Rinsed/ Rinsed/ Irrigated with Irrigated with Irrigated with Saline Saline Saline -Foul Odor after Cleansing No No No -Bioengineered Tissue No No No -Type of bioengineered Tissue -Expiration Date -Product Lot Number -Percent Used -Saline Lot Number -Bleeding Controlled with Pressure Pressure Pressure -Offloading No No -Treatment Response Procedure Procedure Procedure Tolerated Well Tolerated Well Tolerated Well Pain Scale: 0-10 Numeric Is Patient Pain Free? Yes Yes Yes 02/01/19 14:08 Wound Center Nurse 2 #3 Left hand anterior -Time -Correct Patient -Correct Side, Site, Position -Correct Procedure -Procedure Performed -Type of Procedure -Clinical Debridement -Post Debridement Size (cm) - Length -Post Debridement Size (cm) - Width -Post Debridement Size (cm) - Depth -Total Square Cm -Wound/Ulcer Outcome -Ulcer Cleansing -Foul Odor after Cleansing -Bioengineered Tissue -Bleeding Controlled with -Offloading -Treatment Response #2 RIGHT FOREARM -Time -Correct Patient -Correct Side, Site, Position -Correct Procedure -Procedure Performed -Type of Procedure -Clinical Debridement -Post Debridement Size (cm) - Length -Post Debridement Size (cm) - Width -Post Debridement Size (cm) - Depth -Total Square Cm -Wound/Ulcer Outcome -Ulcer Cleansing -Foul Odor after Cleansing -Bioengineered Tissue -Bleeding Controlled with -Treatment Response #1 RIGHT WILSON -Time 14:09 -Correct Patient Yes -Correct Side, Site, Position Yes -Correct Procedure Yes -Procedure Performed Yes -Type of Procedure Debridement -Clinical Debridement Subcutaneous -Post Debridement Size (cm) - Length 4.0 -Post Debridement Size (cm) - Width 3.0 -Post Debridement Size (cm) - Depth 0.2 -Total Square Cm 12.00 -Wound/Ulcer Outcome Not Healed -Ulcer Cleansing Rinsed/ Irrigated with Saline -Foul Odor after Cleansing No -Bioengineered Tissue Yes -Type of bioengineered Tissue Apligraf -Expiration Date 02/09/19 -Product Lot Number [id number] -Percent Used 100 -Saline Lot Number [id number] -Bleeding Controlled with Pressure -Offloading No -Treatment Response Procedure Tolerated Well Pain Scale: 0-10 Numeric Is Patient Pain Free? Yes Wound debrided: right lower extremity ulcer Laterality: Right Type of Debridement: Excisional debridement Anesthesia Used: 5% Lidocaine Gel Depth: in the subcutaneous layer Percentage of wound debrided: 100 Instrument Used: 7mm curette Tissue Removed: slough and devitalized tissue Severity: Fat Layer Exposed Amount of bleeding with debridement: Mild Bleeding Controlled with: Pressure Patient tolerated procedure well Assessment/Plan Clinical Impression(s) from Imaging Studies Tibia/Fibula X-Ray 02/01/19 15:00 IMPRESSION: No acute radiographic abnormality. There is evidence of peripheral arterial disease. Electronically Signed: Terrence Ross MD at 15:39 EDT Tel , Service support , Assessment: See above diagnoses Plan: The patient was seen and examined at the wound center today and was updated on the plan of care. A subcutaneous debridement was performed today. The patient tolerated the procedure well. The patients wound care will consist of: Application of Apligraf #1 was applied to the right lower extremity ulceration, 100% of the product was utilized, Adaptic touch and Steri-Strips were utilized for securement, patient tolerated the procedure well. regarding the ecchymosis and prior hematoma in puncture to the right breast, advised utilizing adequate compression to the site and also utilizing warm compresses. Discussed signs and symptoms of infection that require urgent medical attention. Patient verbalized understanding. Did collect a wound culture of the right lower extremity skin tear and due to the periwound bed erythema, showed Klebsiella and her antibiotic was changed to Cipro which she only tolerated for a couple days. Will hold off on blood work at this time. X-ray reviewed and showed signs of peripheral arterial disease, therefore vascular is ordered. Double layer Tubigrip's bilaterally for lower extremities. Patient educated on the importance of diet on wound healing and instructed to increase protein and vitamin C intake. Patient verbalized understanding. Patient will follow up at wound healing center in one week or sooner if needed. Did discuss following up with her PCP regarding her balance issues and recent falls. Due to the delayed healing in fact that patient has failed standard wound care for 4 weeks now, will apply for the use of an advanced skin substitute this note was generated with [employer] dictation software. It may contain incorrect words, spelling, and punctuation that were not noted in checking the note before signing. Code Visit 150xxx-152xx: 25005 Skin sub graft trnk/arm/leg
== END 2019-02-03 23:59 ==
LOC: WC 13:45
PROVIDERS: Family Provider Family Medicine; PCP Family Medicine; Referring Provider Nurse Practitioner Family; Visit Provider Nurse Practitioner Family
DX: S21.031A Puncture wound without foreign body of right breast, initial encounter (principal); W01.118A Fall on same level from slipping, tripping and stumbling with subsequent striking against other sharp object, initial encounter; S51.811A Laceration without foreign body of right forearm, initial encounter; S61.412A Laceration without foreign body of left hand, initial encounter; S81.811A Laceration without foreign body, right lower leg, initial encounter; E03.9 Hypothyroidism, unspecified; I10 Essential (primary) hypertension; E78.5 Hyperlipidemia, unspecified; E66.9 Obesity, unspecified; Z68.32 Body mass index [BMI] 32.0-32.9, adult; Z71.3 Dietary counseling and surveillance; Z79.899 Other long term (current) drug therapy; Z79.82 Long term (current) use of aspirin; W22.09XA Striking against other stationary object, initial encounter
CPT/HCPCS: 11042; 11045; 15271; 15272; 73590; 87070; 87075; 87077; 87186; 87205; 87640; 99212; Q4101; G0463

== ENCOUNTER 2019-02-12 14:25 | Emergency (ER) | payer MEDICARE, SELFPAY ==
[2019-02-08 15:52] VITALS: BMI 32.5
[2019-02-12 14:26] VITALS: BP 137/78; PULSE 69; RESP 16; TEMP 36.2; O2SAT 99; BMI 32.5
--- NOTE | 2019-02-12 15:07 | ED.DCSUM_ITS ---
- ER Visit Summary Date of Service: 02/12/19 Chief Complaint: Left leg DVT History of Present Illness: The patient is a 78 F who was brought to the emergency department following a ultrasound which revealed a isolated left acute peroneal DVT. Patient notes some calf discomfort. She has chronic wound to the legs and is seen at the wound care clinic. She has no known cancer. She sees Dr. Sheila Reyes her primary care. Physical Examination: Afebrile vital signs stable Patient has mild tenderness in the calf but does not have significant swelling or skin color changes. Test Results: The results of the ultrasound were reviewed by myself. This confirms a viral acute DVT noted in the left peroneal vein. Emergency Department Course and Treatment: Patient will have serial ultrasounds to monitor for expansion of the DVT. We will set her up for ultrasounds on day 3, 7, and 14. Primary care was notified and updated. Impression: 1. Left peroneal DVT This note was generated with [employer] dictation software. It may contain incorrect words, spelling, and punctuation that were not noted in review of the chart prior to signing ED Disposition - Plan for ED Patient: Disposition: Home or Assisted Living Instructions: Understanding Deep Vein Thrombosis Referrals: Sheila Reyes MD [Primary Care Provider] - As Needed Additional Instructions: You have been diagnosed with a left peroneal DVT. This currently does not need treatment with anticoagulation. He will need to have serial ultrasounds to evaluate whether or not the clot propagates. He has been given a order form to obtain ultrasounds on February 14, , and .
== END 2019-02-12 15:42 | disposition home or self-care (01) ==
LOC: ED 15:12
PROVIDERS: Emergency Provider Emergency Medicine; Family Provider Family Medicine; PCP Family Medicine
DX: I82.4Z2 Acute embolism and thrombosis of unspecified deep veins of left distal lower extremity (principal); I73.9 Peripheral vascular disease, unspecified; I83.018 Varicose veins of right lower extremity with ulcer other part of lower leg; L97.812 Non-pressure chronic ulcer of other part of right lower leg with fat layer exposed; Z86.718 Personal history of other venous thrombosis and embolism; I10 Essential (primary) hypertension; Z79.82 Long term (current) use of aspirin; Z79.52 Long term (current) use of systemic steroids; Z79.899 Other long term (current) drug therapy; Z87.891 Personal history of nicotine dependence
CPT/HCPCS: 93970; 99282

== ENCOUNTER → 2019-02-14 12:47 | Outpatient (CLI) | payer MEDICARE, SELFPAY ==
[2019-02-12 14:26] VITALS: BMI 32.5
--- NOTE | 2019-02-14 13:02 | VDLE_ITS ---
Reason For Study: DVT Procedure LEFT Exam performed in department. GSV is normal. A preliminary report was called and/or faxed CFV is compressible, spontaneous, phasic, to DR PAVON. competent, and demonstrates normal augmentation. FV is compressible, spontaneous, phasic, competent and demonstrates normal augmentation. POP V is compressible, spontaneous, phasic, competent and demonstrates normal augmentation. T/P Trunk is compressible. PTV is compressible. Acute deep vein thrombosis is noted in the left peroneal vein. Interpretation Summary Acute deep vein thrombosis is noted in the left peroneal vein. The remainder of the left lower extremity deep venous system is patent and compressible. Valvular competence appears intact within the proximal deep venous system on the left . The left great saphenous vein appears patent and compressible segmentally. Ordering Physician: Bhargav Mckeon Referring Physician: FATIMAH PAVON Performed By: Leigh Marion RDCS, RVT
== END ==
PROVIDERS: Family Provider Family Medicine; PCP Family Medicine; Referring Provider Emergency Medicine; Visit Provider Emergency Medicine
DX: I82.4Z2 Acute embolism and thrombosis of unspecified deep veins of left distal lower extremity (principal)
CPT/HCPCS: 93971

== ENCOUNTER → 2019-02-19 14:03 | Outpatient (CLI) | payer MEDICARE, SELFPAY ==
[2019-02-12 14:26] VITALS: BMI 32.5
[2019-02-19 13:24] VITALS: BMI 32.5
--- NOTE | 2019-02-19 14:13 | VDLE_ITS ---
Reason For Study: DVT RIGHT LEFT CFV is compressible, spontaneous, phasic, GSV is normal. competent and demonstrates normal CFV is compressible, spontaneous, phasic, augmentation. competent, and demonstrates normal Procedure augmentation. Exam performed in department. FV is compressible, spontaneous, phasic, Compared to study done on 02/14/19. competent and demonstrates normal A preliminary report was called and/or faxed augmentation. to Amy. POP V is compressible, spontaneous, phasic, competent and demonstrates normal augmentation. T/P Trunk is compressible. PTV is compressible. Acute deep vein thrombosis is noted in the left peroneal vein. Interpretation Summary Acute deep vein thrombosis is noted in the left peroneal vein. The remainder of the left lower extremity deep venous system is patent and compressible. Valvular competence appears intact within the proximal deep venous system on the left . The left great saphenous vein appears patent and compressible segmentally. Ordering Physician: Bhargav Mckeon Referring Physician: Sheila Reyes M.D. Performed By: Wendy Cutler RVT
== END ==
PROVIDERS: Family Provider Family Medicine; PCP Family Medicine; Referring Provider Emergency Medicine; Visit Provider Emergency Medicine
DX: I82.4Z2 Acute embolism and thrombosis of unspecified deep veins of left distal lower extremity (principal)
CPT/HCPCS: 93971

== ENCOUNTER → 2019-03-01 12:42 | Outpatient (CLI) | payer MEDICARE, SELFPAY ==
[2019-02-12 14:26] VITALS: BMI 32.5
[2019-02-21 13:07] VITALS: BMI 32.5
--- NOTE | 2019-03-01 13:11 | VDLE_ITS ---
Reason For Study: L Peroneal DVT RIGHT LEFT CFV is compressible, spontaneous, phasic, GSV is normal. competent and demonstrates normal CFV is compressible, spontaneous, phasic, augmentation. competent, and demonstrates normal Procedure augmentation. Exam performed in department. FV is compressible, spontaneous, phasic, The exam was diagnostic. competent and demonstrates normal A preliminary report was called and/or faxed augmentation. to Dr. Reyes. POP V is compressible, spontaneous, phasic, competent and demonstrates normal augmentation. T/P Trunk is compressible. PTV is compressible. Acute deep vein thrombosis is noted in the left peroneal vein. No significant change from study done 02/19/19. Interpretation Summary Acute deep vein thrombosis is noted in the left peroneal vein. The remainder of the left lower extremity deep venous system is patent and compressible. Valvular competence appears intact within the proximal deep venous system on the left . The left great saphenous vein appears patent and compressible segmentally. There has been no significant change since a prior study on 02/19/19. Ordering Physician: Bhargav Mckeon Referring Physician: Sheila Reyes M.D. Performed By: Mohsen Lacy, ALEYDAT
== END ==
PROVIDERS: Family Provider Family Medicine; PCP Family Medicine; Referring Provider Emergency Medicine; Visit Provider Emergency Medicine
DX: I82.4Z2 Acute embolism and thrombosis of unspecified deep veins of left distal lower extremity (principal)
CPT/HCPCS: 93971

== ENCOUNTER 2019-03-01 15:00 | Outpatient (RCR) | payer MEDICARE, SELFPAY ==
[2019-02-04 00:12] VITALS: BP 136/63; PULSE 70; RESP 18; TEMP 36.6
[2019-02-08 15:52] VITALS: RESP 18; TEMP 36; BMI 32.5
--- NOTE | 2019-02-08 15:58 | WC ---
apligraph left intact per myles's instructions.
--- NOTE | 2019-02-12 13:09 | VDLE_ITS ---
Reason For Study: Edema RIGHT LEFT CFV is compressible, spontaneous, phasic, CFV is compressible, spontaneous, phasic, competent and demonstrates normal competent, and demonstrates normal augmentation. augmentation. FV is compressible, spontaneous, phasic, FV is compressible, spontaneous, phasic, competent and demonstrates normal competent and demonstrates normal augmentation. augmentation. POP V is compressible, spontaneous, phasic, POP V is compressible, spontaneous, phasic, competent and demonstrates normal competent and demonstrates normal augmentation. augmentation. T/P Trunk is compressible. T/P Trunk is compressible. PTV is compressible. PTV is compressible. RT PerV is compressible. Acute deep vein thrombosis is noted in the SFJ is competent and measures 0.29 x 0.30 cm. left peroneal vein. GSV proximal thigh measures 0.28 x 0.28 cm. SFJ is competent and measures 0.23 x 0.26 cm. GSV at knee measures 0.23 x 0.26 cm. GSV proximal thigh measures 0.16 x 0.16 cm. GSV is competent throughout. GSV at knee measures 0.18 x 0.17 cm. SSV at proximal calf measures 0.12 x 0.12 cm GSV is competent throughout. and is to small to evaluate. SSV at proximal calf measures 0.09 x 0.09 cm Procedure and is to small to evaluate. Exam performed in department. Unable to complete LE Arterial exam due to blood clot in left leg. A preliminary report was called and/or faxed to [place]. (Calle out of office, PT sent to ED). Interpretation Summary Acute deep vein thrombosis is noted in the left peroneal vein. The remainder of the left lower extremity deep venous system is patent and compressible. Deep veins of the right lower extremity are patent and compressible segmentally. There is no evidence of right lower extremity deep vein thrombosis. Valvular competence appears intact within the proximal deep venous systems bilaterally. The great saphenous veins appear bilaterally patent and compressible segmentally. Sapheno-femoral junctions are bilaterally competent . Valvular competence appears to be intact segmentally within the great saphenous veins bilaterally. Small saphenous veins are too small to evaluate bilaterally. Ordering Physician: Enrrique Calle Referring Physician: Sheila Reyes M.D. Performed By: Wendy Cutler RVT
--- NOTE | 2019-02-14 17:05 | PN.PCM_ITS ---
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 Status: Acute Current Visit: Yes Qualifiers: Laterality: right Non-pressure ulcer stage: with fat layer exposed Code(s): I83.009 - Varicose veins of unspecified lower extremity with ulcer of unspecified site; L97.909 - Non-pressure chronic ulcer of unspecified part of unspecified lower leg with unspecified severity (2) Nonhealing ulcer of right lower extremity with fat layer exposed Status: Acute Current Visit: No Code(s): L97.912 - Non-pressure chronic ulcer of unspecified part of right lower leg with fat layer exposed (3) Fall Status: Acute Current Visit: No Code(s): W19.XXXA - Unspecified fall, initial encounter (4) PAD (peripheral artery disease) Status: Acute Current Visit: No Code(s): I73.9 - Peripheral vascular disease, unspecified (5) Puncture wound of right breast Status: Acute Current Visit: No Code(s): S21.031A - Puncture wound without foreign body of right breast, initial encounter (6) HTN (hypertension) Status: Chronic Current Visit: No Qualifiers: Code(s): I10 - Essential (primary) hypertension Type of Wound Date of Service: 02/08/19 Chief Complaint: Right breast puncture, right breast hematoma, right forearm skin tear, right lower extremity ulcer with varicose veins s/p traumatic skin tear History of Wound: This is a 78-year-old white female who presents to the wound healing center today with complaints of right forearm skin tear, right lower extremity skin tear, and right breast puncture laceration and right breast hematoma. She is a past medical history significant for hypertension, hyperlipidemia, hypothyroidism. The patient states that her right breast puncture and right arm skin tear occurred approximately 4 days ago when she tripped and fell on a metal utensil that she had in her hand. She went and saw her insurance plan specialist who updated her Tdap and referred her to the wound center for further management of the wounds. Patient also notes a skin tear that occurred yesterday after she tripped and fell and hit her right lower leg. She states that first the puncture site on the right breast bloody drainage, however she notes now that there is no further drainage and the site has closed. She has been using [id number] antibiotic ointment on the skin tears. Denies any other acute concerns at this time. Denies any signs of infection at this time. The patient otherwise denies any fever, chills, nausea, vomiting, shortness of breath, chest pain or pressure, palpitations, orthopnea, lower extremity edema, syncope or presyncopal episodes. Progress of Wound: Ulcer stable, she does note that she got the Apligraf wet unintentionally after the first day, however it did stay in place for the entire week. Denies any signs of infection at this time. The patient otherwise denies any fever, chills, nausea, vomiting, shortness of breath, chest pain or pressure, palpitations, orthopnea, lower extremity edema, syncope or presyncopal episodes. - Physical Exam Vital Signs Temp Pulse Resp BP 96.8 F L 70 18 136/63 H 02/08/19 15:52 02/04/19 00:12 02/08/19 15:52 02/04/19 00:12 General: Alert, Oriented x3, Cooperative, No apparent distress HEENT: Atraumatic Oral: Moist Mucosa Lungs: Clear to auscultation Cardiovascular: Regular rate Abdomen: Soft, Non Tender Extremities: No clubbing, No cyanosis, No edema Skin: Ulcer/ Wound - Ulceration to right lower extremity with adherent slough, no signs of obvious infection at this time., - - Hematoma to right breast resolved Neurological: Neuro grossly intact Psych/Mental Status: Normal Affect, Appropriate, Alert and oriented to time, place, person, mood and affect Debridement Note Post-Debridement Measurements/Treatment WC - Nurse 2 - General Ulcer CM Notes Start: 02/08/19 15:52 Freq: Status: Active Protocol: Activity Type Activity Date Activity User E-Sign Co-Sign Detail Recorded Client Recorded Date Recorded By Document 02/08/19 16:18 AN [id number] 02/08/19 16:27 AN 02/08/19 16:18 Wound Center Nurse 2 #1 RIGHT WILSON -Time 16:19 -Correct Patient Yes -Correct Side, Site, Position Yes -Correct Procedure Yes -Procedure Performed Yes -Type of Procedure Debridement -Clinical Debridement Subcutaneous -Post Debridement Size (cm) - Length 3 -Post Debridement Size (cm) - Width 3 -Post Debridement Size (cm) - Depth 0.3 -Total Square Cm 9 -Wound/Ulcer Outcome Not Healed -Ulcer Cleansing Rinsed/ Irrigated with Saline -Foul Odor after Cleansing No -Bioengineered Tissue Yes -Type of bioengineered Tissue Apligraf -Bleeding Controlled with Pressure -Offloading No -Treatment Response Procedure Tolerated Well Pain Scale: 0-10 Numeric Is Patient Pain Free? Yes Wound debrided: Right lower extremity ulceration Laterality: Right Type of Debridement: Excisional debridement Anesthesia Used: 5% Lidocaine Gel Depth: in the subcutaneous layer Percentage of wound debrided: 100 Instrument Used: 7mm curette Tissue Removed: Slough and devitalized tissue Severity: Fat Layer Exposed Amount of bleeding with debridement: Mild Bleeding Controlled with: Pressure Patient tolerated procedure well Assessment/Plan Active Problems (Last Reviewed 01/01/19 @ 15:30 by Olimpia Sheppard) Varicose veins of lower extremity with ulcer (Acute) Assessment: See above diagnoses Plan: The patient was seen and examined at the wound center today and was updated on the plan of care. A subcutaneous debridement was performed today. The patient tolerated the procedure well. The patients wound care will consist of: Apligraf applied to right lower extremity ulceration and secured with Adaptic touch and Steri-Strips, 100% of the product was utilized with 0% waist. Double layer Tubigrip for compression.. Discussed signs and symptoms of infection that require urgent medical attention. Patient verbalized understanding. Did collect a wound culture of the right lower extremity skin tear and due to the periwound bed erythema, showed Klebsiella and her antibiotic was changed to Cipro which she only tolerated for a couple days. vascular studies pending at this time. Patient educated on the importance of diet on wound healing and instructed to increase protein and vitamin C intake. Patient verbalized understanding. Patient will follow up at wound healing center in one week or sooner if needed. Did discuss following up with her PCP regarding her balance issues and recent falls. Due to the delayed healing in fact that patient has failed standard wound care for 4 weeks now, will apply for the use of an advanced skin substitute this note was generated with [employer] software. It may contain incorrect words, spelling, and punctuation that were not noted in checking the note before signing. Code Visit 150xxx-152xx: 51404 Skin sub graft trnk/arm/leg
[2019-02-15 14:54] VITALS: BP 138/60; PULSE 72; RESP 16; TEMP 36.2; BMI 32.5
--- NOTE | 2019-02-15 15:02 | WC ---
apligraph/adaptic/steris left intact.
[2019-02-19 13:24] VITALS: BP 135/86; PULSE 73; RESP 18; TEMP 36; BMI 32.5
--- NOTE | 2019-02-21 11:22 | PCM.WC.PN ---
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 Status: Acute Current Visit: Yes Qualifiers: Laterality: right Non-pressure ulcer stage: with fat layer exposed Code(s): I83.009 - Varicose veins of unspecified lower extremity with ulcer of unspecified site; L97.909 - Non-pressure chronic ulcer of unspecified part of unspecified lower leg with unspecified severity (2) Nonhealing ulcer of right lower extremity with fat layer exposed Status: Acute Current Visit: No Code(s): L97.912 - Non-pressure chronic ulcer of unspecified part of right lower leg with fat layer exposed (3) Fall Status: Acute Current Visit: No Code(s): W19.XXXA - Unspecified fall, initial encounter (4) PAD (peripheral artery disease) Status: Acute Current Visit: No Code(s): I73.9 - Peripheral vascular disease, unspecified (5) Puncture wound of right breast Status: Acute Current Visit: No Code(s): S21.031A - Puncture wound without foreign body of right breast, initial encounter (6) HTN (hypertension) Status: Chronic Current Visit: No Qualifiers: Code(s): I10 - Essential (primary) hypertension (7) DVT (deep venous thrombosis) Status: Acute Current Visit: Yes Code(s): I82.409 - Acute embolism and thrombosis of unspecified deep veins of unspecified lower extremity Type of Wound Date of Service: 02/15/19 Chief Complaint: Right breast puncture, right breast hematoma, right forearm skin tear, right lower extremity ulcer with varicose veins s/p traumatic skin tear History of Wound: This is a 78-year-old white female who presents to the wound healing center today with complaints of right forearm skin tear, right lower extremity skin tear, and right breast puncture laceration and right breast hematoma. She is a past medical history significant for hypertension, hyperlipidemia, hypothyroidism. The patient states that her right breast puncture and right arm skin tear occurred approximately 4 days ago when she tripped and fell on a metal utensil that she had in her hand. She went and saw her clinical research specialist who updated her Tdap and referred her to the wound center for further management of the wounds. Patient also notes a skin tear that occurred yesterday after she tripped and fell and hit her right lower leg. She states that first the puncture site on the right breast bloody drainage, however she notes now that there is no further drainage and the site has closed. She has been using [id number] antibiotic ointment on the skin tears. Denies any other acute concerns at this time. Denies any signs of infection at this time. The patient otherwise denies any fever, chills, nausea, vomiting, shortness of breath, chest pain or pressure, palpitations, orthopnea, lower extremity edema, syncope or presyncopal episodes. Progress of Wound: Ulcer improved, she did go get her vasculars done and a DVT was found at the left lower leg. She then went to the ER and they are ordering serial ultrasounds. She has yet to follow-up with primary care, however she states that anticoagulation was not indicated. Denies any signs of infection at this time. The patient otherwise denies any fever, chills, nausea, vomiting, shortness of breath, chest pain or pressure, palpitations, orthopnea, lower extremity edema, syncope or presyncopal episodes. - Physical Exam Vital Signs Temp Pulse Resp BP 96.8 F L 73 18 135/86 H 02/19/19 13:24 02/19/19 13:24 02/19/19 13:24 02/19/19 13:24 General: Alert, Oriented x3, Cooperative, No apparent distress HEENT: Atraumatic Oral: Moist Mucosa Lungs: Clear to auscultation Cardiovascular: Regular rate Abdomen: Soft, Non Tender, Obese Extremities: No clubbing, No cyanosis, Edema - Generalized bilateral lower extremity edema Skin: Ulcer/ Wound - Ulceration to right lower extremity with adherent slough, no signs of infection at this time Wound Measurements and Assessment WC - Nurse 1 - General Ulcer Measurement Start: 02/08/19 15:52 Freq: Status: Active Protocol: Activity Type Activity Date Activity User E-Sign Co-Sign Detail Recorded Client Recorded Date Recorded By Document 02/19/19 13:24 DL [id number] 02/19/19 13:47 DL 02/19/19 13:24 Wound Center Nurse 1 [Ulcer Assessment] #1 RIGHT WILSON -Exudate Amt Small -Exudate Type Serosanguineous -Wound Margin Distinct, Outline Attached -Texture (Lorena-wound Skin Appearance) No Abnormality -Moisture (Lorena-wound Skin Appearance No Abnormality ) -Color (Lorena-wound Skin Appearance) No Abnormality -Temperature (Lorena-wound Skin No Abnormality Appearance) (Pt Warm) -Tenderness on Palpation (Lorena-wound No Skin Appearance) -Ulcer Cleansing Wound Cleanser -Foul Odor after Cleansing No [Edema Assessment] -Right Calf (cm) 36.1 -Right Ankle (cm) 20.8 Musculoskeletal: No Tenderness to Palpation of Joints or Extremities Neurological: Neuro grossly intact Psych/Mental Status: Normal Affect, Appropriate, Alert and oriented to time, place, person, mood and affect Debridement Note Post-Debridement Measurements/Treatment WC - Nurse 2 - General Ulcer CM Notes Start: 02/08/19 15:52 Freq: Status: Active Protocol: Activity Type Activity Date Activity User E-Sign Co-Sign Detail Recorded Client Recorded Date Recorded By Document 02/08/19 16:18 AN [id number] 02/08/19 16:27 AN Document 02/15/19 15:26 AN [id number] 02/15/19 15:31 AN 02/08/19 02/15/19 16:18 15:26 Wound Center Nurse 2 #1 RIGHT WILSON -Time 16:19 15:30 -Correct Patient Yes Yes -Correct Side, Site, Position Yes Yes -Correct Procedure Yes Yes -Procedure Performed Yes Yes -Type of Procedure Debridement Debridement -Clinical Debridement Subcutaneous Subcutaneous -Post Debridement Size (cm) - Length 3 2.5 -Post Debridement Size (cm) - Width 3 2.5 -Post Debridement Size (cm) - Depth 0.3 0.3 -Total Square Cm 9 6.25 -Wound/Ulcer Outcome Not Healed Not Healed -Ulcer Cleansing Rinsed/ Irrigated with Saline -Foul Odor after Cleansing No No -Bioengineered Tissue Yes Yes -Type of bioengineered Tissue Apligraf Apligraf -Percent Used 100 -Bleeding Controlled with Pressure Pressure -Offloading No No -Treatment Response Procedure Procedure Tolerated Well Tolerated Well Pain Scale: 0-10 Numeric Is Patient Pain Free? 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 A subcutaneous debridement was performed today. The patient tolerated the procedure well. The patients wound care will consist of: Apligraf applied to right lower extremity ulceration and secured with Adaptic touch and Steri-Strips, 100% of the product was utilized with 0% waist. Light 3M wrap for compression.. Discussed signs and symptoms of infection that require urgent medical attention. Patient verbalized understanding. Did collect a wound culture of the right lower extremity skin tear and due to the periwound bed erythema, showed Klebsiella and her antibiotic was changed to Cipro which she only tolerated for a couple days. vascular studies unable to be completed due to a DVT in her left lower extremity which she is getting serial ultrasounds for monitoring, no systemic anticoagulation at this time and patient has yet to follow-up with primary care. Patient educated on the importance of diet on wound healing and instructed to increase protein and vitamin C intake. Patient verbalized understanding. Patient will follow up at wound healing center in one week or sooner if needed. Did discuss following up with her PCP regarding her balance issues and recent falls. Due to the delayed healing in fact that patient has failed standard wound care for 4 weeks now, will apply for the use of an advanced skin substitute this note was generated with [employer] software. It may contain incorrect words, spelling, and punctuation that were not noted in checking the note before signing. Code Visit 150xxx-152xx: 99887 Skin sub graft trnk/arm/leg
[2019-02-21 13:07] VITALS: BP 124/74; PULSE 68; RESP 16; TEMP 36.3; BMI 32.5
--- NOTE | 2019-02-21 13:12 | WC ---
apligraph/adaptic touch left intact.
--- NOTE | 2019-02-21 14:38 | PN.PCM_ITS ---
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 Status: Chronic Current Visit: Yes Qualifiers: Laterality: right Non-pressure ulcer stage: with fat layer exposed Code(s): I83.009 - Varicose veins of unspecified lower extremity with ulcer of unspecified site; L97.909 - Non-pressure chronic ulcer of unspecified part of unspecified lower leg with unspecified severity (3) DVT (deep venous thrombosis) Status: Chronic Current Visit: Yes Qualifiers: DVT location: lower extremity Affected thrombotic vein of extremity: other lower extremity vein Code(s): I82.409 - Acute embolism and thrombosis of unspecified deep veins of unspecified lower extremity (4) Obesity (BMI 30.0-34.9) Status: Chronic Current Visit: Yes Code(s): E66.9 - Obesity, unspecified (5) Delayed wound healing Status: Chronic Current Visit: Yes Code(s): T14.8XXD - Other injury of unspecified body region, subsequent encounter Type of Wound Date of Service: 02/21/19 Chief Complaint: right lower extremity ulcer with varicose veins s/p traumatic skin tear History of Wound: This is a 78-year-old white female who presents to the wound healing center today with complaints of right lower extremity skin tear. She is a past medical history significant for hypertension, hyperlipidemia, hypothyroidism. She had an Apligraf applied last week by clinical nurse practitioner, Enrrique Calle. She is kept this clean and intact. She denies pain, fever, chill, nausea, vomiting, loss of appetite. She is unable to follow-up during her scheduled visit tomorrow and she was seen today as a courtesy visit. She also relates she was recently diagnosed with a left lower extremity blood clot and was evaluated by her primary care physician, Dr. Reyes. Medical treatment for this was not recommended at this time and she denies new development of associated symptoms such as shortness of breath, chest pain, or calf pain, redness or increased swelling to the left leg. Progress of Wound: Stable - Physical Exam Vital Signs Temp Pulse Resp BP 97.3 F L 68 16 124/74 H 02/21/19 13:07 02/21/19 13:07 02/21/19 13:07 02/21/19 13:07 General: Alert, Oriented x3, Cooperative, No apparent distress Extremities: No cyanosis, Capillary Refill Less than 3 Seconds, No Calf Tenderness - Negative Lalita and Shell sign right lower extremity, Diminished Peripheral Pulses, Edema - Varicosities legs Skin: Ulcer/ Wound - No purulence, erythema, string, odor, infection right lower extremity. The Apligraf remains intact and was secured in place with adhesive Adaptic touch. There is no odor noted. The peripheral skin is atrophic with scant hair Wound Measurements and Assessment WC - Nurse 1 - General Ulcer Measurement Start: 02/08/19 15:52 Freq: Status: Active Protocol: Activity Type Activity Date Activity User E-Sign Co-Sign Detail Recorded Client Recorded Date Recorded By Document 02/19/19 13:24 DL [id number] 02/19/19 13:47 DL Document 02/21/19 13:07 [facility] [id number] 02/21/19 13:12 [facility] 02/19/19 02/21/19 13:24 13:07 Wound Center Nurse 1 [Ulcer Assessment] #1 RIGHT WILSON -Combined with other wound No -Current Size (cm) - Length 0.1 -Current Size (cm) - Width 0.1 -Current Size (cm) - Depth 0.1 -Total Square Cm 0.01 -Exudate Amt Small -Exudate Type Serosanguineous -Wound Margin Distinct, Outline Attached -Texture (Lorena-wound Skin Appearance) No Abnormality -Moisture (Lorena-wound Skin Appearance No Abnormality ) -Color (Lorena-wound Skin Appearance) No Abnormality -Temperature (Lorena-wound Skin No Abnormality Appearance) (Pt Warm) -Tenderness on Palpation (Lorena-wound No Skin Appearance) -Ulcer Cleansing Wound Cleanser -Foul Odor after Cleansing No [Edema Assessment] -Lower Limb Edema Present Yes -Right Calf (cm) 36.1 39.3 -Right Ankle (cm) 20.8 20.4 WC - Nurse 2 - General Ulcer CM Notes Start: 02/08/19 15:52 Freq: Status: Active Protocol: Activity Type Activity Date Activity User E-Sign Co-Sign Detail Recorded Client Recorded Date Recorded By Document 02/21/19 13:26 AN [id number] 02/21/19 13:28 AN 02/21/19 13:26 Wound Center Nurse 2 [Procedure/Treatment] #1 RIGHT WILSON -Time 13:27 -Correct Patient Yes -Correct Side, Site, Position Yes -Correct Procedure Yes -Procedure Performed Yes -Type of Procedure Debridement -Clinical Debridement Subcutaneous -Post Debridement Size (cm) - Length 0.1 -Post Debridement Size (cm) - Width 0.1 -Post Debridement Size (cm) - Depth 0.1 -Total Square Cm 0.01 -Wound/Ulcer Outcome Not Healed -Ulcer Cleansing Rinsed/ Irrigated with Saline -Foul Odor after Cleansing No -Bioengineered Tissue No -Bleeding Controlled with Pressure -Offloading No -Treatment Response Procedure Tolerated Well [See Physician Procedure note for Specifics] Pain Scale: 0-10 Numeric [Pain] -Is Patient Pain Free? Yes Musculoskeletal: No Tenderness to Palpation of Joints or Extremities, Muscle Wasting, - - Compartment soft to palpate right lower extremity Neurological: Sensory exam intact to light touch and pain Psych/Mental Status: Normal Affect, Appropriate Debridement Note Post-Debridement Measurements/Treatment WC - Nurse 2 - General Ulcer CM Notes Start: 02/08/19 15:52 Freq: Status: Active Protocol: Activity Type Activity Date Activity User E-Sign Co-Sign Detail Recorded Client Recorded Date Recorded By Document 02/08/19 16:18 AN [id number] 02/08/19 16:27 AN Document 02/15/19 15:26 AN [id number] 02/15/19 15:31 AN Document 02/21/19 13:26 AN [id number] 02/21/19 13:28 AN 02/08/19 02/15/19 02/21/19 16:18 15:26 13:26 Wound Center Nurse 2 #1 RIGHT WILSON -Time 16:19 15:30 13:27 -Correct Patient Yes Yes Yes -Correct Side, Site, Position Yes Yes Yes -Correct Procedure Yes Yes Yes -Procedure Performed Yes Yes Yes -Type of Procedure Debridement Debridement Debridement -Clinical Debridement Subcutaneous Subcutaneous Subcutaneous -Post Debridement Size (cm) - Length 3 2.5 0.1 -Post Debridement Size (cm) - Width 3 2.5 0.1 -Post Debridement Size (cm) - Depth 0.3 0.3 0.1 -Total Square Cm 9 6.25 0.01 -Wound/Ulcer Outcome Not Healed Not Healed Not Healed -Ulcer Cleansing Rinsed/ Rinsed/ Irrigated with Irrigated with Saline Saline -Foul Odor after Cleansing No No No -Bioengineered Tissue Yes Yes No -Type of bioengineered Tissue Apligraf Apligraf -Percent Used 100 -Bleeding Controlled with Pressure Pressure Pressure -Offloading No No No -Treatment Response Procedure Procedure Procedure Tolerated Well Tolerated Well Tolerated Well Pain Scale: 0-10 Numeric Is Patient Pain Free? 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 Debridement was not performed today. The Apligraf distal incorporating and this was kept intact with the Adaptic touch. To keep clean, dry, and intact this upcoming week including the secondary dressing. She was reassured no local signs of infection are noted. Additional debridement and application of advanced wound healing product will be considered when she follows up with Enrrique Calle next week. To continue Tubigrip's this upcoming week for compression. She is advised to elevate her limbs and to avoid idle standing or sitting. Patient verbalized understanding. It is noted the ordered vascular studies were not completed due to a DVT in her left lower extremity which she is getting serial ultrasounds for monitoring, no systemic anticoagulation at this time and patient has recently followed up with her primary care physician. Patient educated on the importance of diet on wound healing and instructed to increase protein and vitamin C intake. Patient verbalized understanding. Patient will follow up at wound healing center in one week or sooner if needed. I answered all of her questions.
[2019-03-01 14:03] VITALS: BP 132/66; PULSE 67; RESP 16; TEMP 35.9; BMI 32.5
--- NOTE | 2019-03-01 14:06 | WC ---
apligraph/adaptic left intact per deputy coroner instruction.
--- NOTE | 2019-03-01 19:53 | PCM.WC.PN ---
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 Qualifiers: Laterality: right Non-pressure ulcer stage: with fat layer exposed Code(s): I83.009 - Varicose veins of unspecified lower extremity with ulcer of unspecified site; L97.909 - Non-pressure chronic ulcer of unspecified part of unspecified lower leg with unspecified severity (2) Nonhealing ulcer of right lower extremity with fat layer exposed Status: Acute Code(s): L97.912 - Non-pressure chronic ulcer of unspecified part of right lower leg with fat layer exposed (3) Fall Status: Acute Code(s): W19.XXXA - Unspecified fall, initial encounter (4) PAD (peripheral artery disease) Status: Chronic Code(s): I73.9 - Peripheral vascular disease, unspecified (5) Puncture wound of right breast Status: Resolved Code(s): S21.031A - Puncture wound without foreign body of right breast, initial encounter (6) HTN (hypertension) Status: Deleted Qualifiers: Code(s): I10 - Essential (primary) hypertension (7) DVT (deep venous thrombosis) Status: Chronic Qualifiers: DVT location: lower extremity Affected thrombotic vein of extremity: other lower extremity vein Code(s): I82.409 - Acute embolism and thrombosis of unspecified deep veins of unspecified lower extremity Type of Wound Date of Service: 03/01/19 Chief Complaint: right lower extremity ulcer with varicose veins s/p traumatic skin tear History of Wound: This is a 78-year-old white female who presents to the wound healing center today with complaints of right lower extremity skin tear. She is a past medical history significant for hypertension, hyperlipidemia, hypothyroidism. She had an Apligraf applied last week by clinical nurse practitioner, Enrrique Calle. She is kept this clean and intact. She denies pain, fever, chill, nausea, vomiting, loss of appetite. She is unable to follow-up during her scheduled visit tomorrow and she was seen today as a courtesy visit. She also relates she was recently diagnosed with a left lower extremity blood clot and was evaluated by her primary care physician, Dr. Reyes. Medical treatment for this was not recommended at this time and she denies new development of associated symptoms such as shortness of breath, chest pain, or calf pain, redness or increased swelling to the left leg. Progress of Wound: Stable, did 2 weeks with Apligraf on and tolerated well, no signs of infection at this time. - Physical Exam Vital Signs Temp Pulse Resp BP 96.6 F L 67 16 132/66 H 03/01/19 14:03 03/01/19 14:03 03/01/19 14:03 03/01/19 14:03 General: Alert, Oriented x3, Cooperative, No apparent distress HEENT: Atraumatic Oral: Moist Mucosa Lungs: Clear to auscultation Cardiovascular: Regular rate Abdomen: Soft, Non Tender, Obese Extremities: No clubbing, No cyanosis, No edema Skin: Ulcer/ Wound - Right lower extremity ulceration Neurological: Neuro grossly intact Psych/Mental Status: Normal Affect, Appropriate, Alert and oriented to time, place, person, mood and affect Debridement Note Post-Debridement Measurements/Treatment WC - Nurse 2 - General Ulcer CM Notes Start: 02/08/19 15:52 Freq: Status: Active Protocol: Activity Type Activity Date Activity User E-Sign Co-Sign Detail Recorded Client Recorded Date Recorded By Document 02/08/19 16:18 AN [id number] 02/08/19 16:27 AN Document 02/15/19 15:26 AN [id number] 02/15/19 15:31 AN Document 02/21/19 13:26 AN [id number] 02/21/19 13:28 AN Document 03/01/19 15:04 AN [id number] 03/01/19 15:10 AN 02/08/19 02/15/19 02/21/19 16:18 15:26 13:26 Wound Center Nurse 2 #1 RIGHT WILSON -Time 16:19 15:30 13:27 -Correct Patient Yes Yes Yes -Correct Side, Site, Position Yes Yes Yes -Correct Procedure Yes Yes Yes -Procedure Performed Yes Yes Yes -Type of Procedure Debridement Debridement Debridement -Clinical Debridement Subcutaneous Subcutaneous Subcutaneous -Post Debridement Size (cm) - Length 3 2.5 0.1 -Post Debridement Size (cm) - Width 3 2.5 0.1 -Post Debridement Size (cm) - Depth 0.3 0.3 0.1 -Total Square Cm 9 6.25 0.01 -Wound/Ulcer Outcome Not Healed Not Healed Not Healed -Ulcer Cleansing Rinsed/ Rinsed/ Irrigated with Irrigated with Saline Saline -Foul Odor after Cleansing No No No -Bioengineered Tissue Yes Yes No -Type of bioengineered Tissue Apligraf Apligraf -Percent Used 100 -Bleeding Controlled with Pressure Pressure Pressure -Offloading No No No -Treatment Response Procedure Procedure Procedure Tolerated Well Tolerated Well Tolerated Well Pain Scale: 0-10 Numeric Is Patient Pain Free? Yes Yes Yes 03/01/19 15:04 Wound Center Nurse 2 #1 RIGHT WILSON -Time 15:08 -Correct Patient Yes -Correct Side, Site, Position Yes -Correct Procedure Yes -Procedure Performed Yes -Type of Procedure Debridement -Clinical Debridement Subcutaneous -Post Debridement Size (cm) - Length 1.2 -Post Debridement Size (cm) - Width 1.6 -Post Debridement Size (cm) - Depth 0.3 -Total Square Cm 1.92 -Wound/Ulcer Outcome Not Healed -Ulcer Cleansing Rinsed/ Irrigated with Saline -Foul Odor after Cleansing No -Bioengineered Tissue Yes -Type of bioengineered Tissue Apligraf -Percent Used -Bleeding Controlled with Pressure -Offloading -Treatment Response Procedure Tolerated Well Pain Scale: 0-10 Numeric Is Patient Pain Free? Yes Wound debrided: Right lower extremity ulcer Laterality: Right Type of Debridement: Excisional debridement Anesthesia Used: 5% Lidocaine Gel Depth: in the subcutaneous layer Percentage of wound debrided: 100 Instrument Used: 3mm curette, 5mm curette Tissue Removed: Slough and devitalized tissue Severity: Fat Layer Exposed Amount of bleeding with debridement: Mild Bleeding Controlled with: Pressure Patient tolerated procedure well Assessment/Plan Assessment: See above diagnoses Plan: The patient was seen and examined at the wound center today and was updated on the plan of care. Debridement was performed today. Apligraf #4 applied today secured with Adaptic touch and Steri-Strips, a 100% of the product was utilized with 0% waste. To keep clean, dry, and intact this upcoming week including the secondary dressing. She was reassured no local signs of infection are noted. To continue Tubigrip's this upcoming week for compression. She is advised to elevate her limbs and to avoid idle standing or sitting. Patient verbalized understanding. It is noted the ordered vascular studies were not completed due to a DVT in her left lower extremity which she is getting serial ultrasounds for monitoring, no systemic anticoagulation at this time and patient has recently followed up with her primary care physician. Patient educated on the importance of diet on wound healing and instructed to increase protein and vitamin C intake. Patient verbalized understanding. Patient will follow up at wound healing center in one week or sooner if needed. I answered all of her questions. Code Visit 150xxx-152xx: [id number] Skin sub graft trnk/arm/leg
== END 2019-03-05 23:59 ==
LOC: WC 15:00
PROVIDERS: Family Provider Family Medicine; PCP Family Medicine; Referring Provider Nurse Practitioner Family; Visit Provider Nurse Practitioner Family
DX: I83.018 Varicose veins of right lower extremity with ulcer other part of lower leg (principal); R60.0 Localized edema; L97.812 Non-pressure chronic ulcer of other part of right lower leg with fat layer exposed; I10 Essential (primary) hypertension; E78.5 Hyperlipidemia, unspecified; S81.811S Laceration without foreign body, right lower leg, sequela; W01.0XXS Fall on same level from slipping, tripping and stumbling without subsequent striking against object, sequela; E66.9 Obesity, unspecified; Z68.32 Body mass index [BMI] 32.0-32.9, adult; Z71.3 Dietary counseling and surveillance; Z86.718 Personal history of other venous thrombosis and embolism
CPT/HCPCS: 15271; 15272; 93970; 99212; Q4101; G0463

== ENCOUNTER 2019-03-22 14:00 | Outpatient (RCR) | payer MEDICARE, SELFPAY ==
[2019-03-05 14:15] VITALS: BMI 32.7
[2019-03-06 00:19] VITALS: BP 132/66; PULSE 67; RESP 16; TEMP 35.9
[2019-03-08 13:58] VITALS: BP 121/71; PULSE 69; RESP 18; TEMP 36.6; BMI 32.7
--- NOTE | 2019-03-08 17:42 | PCM.WC.PN ---
(1) Nonhealing ulcer of right lower extremity with fat layer exposed Status: Acute Code(s): L97.912 - Non-pressure chronic ulcer of unspecified part of right lower leg with fat layer exposed (2) Skin tear of right lower leg without complication Status: Acute Code(s): S81.811A - Laceration without foreign body, right lower leg, initial encounter (3) DVT (deep venous thrombosis) Status: Chronic Code(s): I82.409 - Acute embolism and thrombosis of unspecified deep veins of unspecified lower extremity (4) Delayed wound healing Status: Chronic Code(s): T14.8XXD - Other injury of unspecified body region, subsequent encounter (5) Essential hypertension Status: Chronic Code(s): I10 - Essential (primary) hypertension (6) PAD (peripheral artery disease) Status: Chronic Code(s): I73.9 - Peripheral vascular disease, unspecified (7) 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 Code(s): S20.01XA - Contusion of right breast, initial encounter (8) 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 She is a past medical history significant for hypertension, hyperlipidemia, hypothyroidism. She had an Apligraf applied last week by clinical nurse practitioner, Enrrique Calle. She is kept this clean and intact. She denies pain, fever, chill, nausea, vomiting, loss of appetite. She is unable to follow-up during her scheduled visit tomorrow and she was seen today as a courtesy visit. She also relates she was recently diagnosed with a left lower extremity blood clot and was evaluated by her primary care physician, Dr. Reyes. Medical treatment for this was not recommended at this time and she denies new development of associated symptoms such as shortness of breath, chest pain, or calf pain, redness or increased swelling to the left leg. Progress of Wound: Stable, size improved beefy-red without any signs of infection at this time. Doing well with Apligraf. - Physical Exam Vital Signs Temp Pulse Resp BP 97.9 F 69 18 121/71 H 03/08/19 13:58 03/08/19 13:58 03/08/19 13:58 03/08/19 13:58 General: Alert, Oriented x3, Cooperative, No apparent distress HEENT: Atraumatic Oral: Moist Mucosa Lungs: Clear to auscultation Cardiovascular: Regular rate Abdomen: Soft, Non Tender Extremities: No clubbing, No cyanosis, Edema - Generalized bilateral lower extremity edema Skin: Ulcer/ Wound - To right lower extremity with adherent soft, no signs of infection at this time Neurological: Neuro grossly intact Psych/Mental Status: Normal Affect, Appropriate, Alert and oriented to time, place, person, mood and affect Debridement Note Post-Debridement Measurements/Treatment WC - Nurse 2 - General Ulcer CM Notes Start: 03/08/19 13:58 Freq: Status: Active Protocol: Activity Type Activity Date Activity User E-Sign Co-Sign Detail Recorded Client Recorded Date Recorded By Document 03/08/19 14:17 DL [id number] 03/08/19 14:21 DL 03/08/19 14:17 Wound Center Nurse 2 #1 RIGHT WILSON -Time 14:17 -Correct Patient Yes -Correct Side, Site, Position Yes -Correct Procedure Yes -Procedure Performed Yes -Type of Procedure Debridement -Clinical Debridement Subcutaneous -Post Debridement Size (cm) - Length 0.8 -Post Debridement Size (cm) - Width 1.5 -Post Debridement Size (cm) - Depth 0.2 -Total Square Cm 1.20 -Wound/Ulcer Outcome Amputation -Bioengineered Tissue Yes -Type of bioengineered Tissue Apligraf -Bleeding Controlled with Pressure -Treatment Response Procedure Tolerated Well Pain Scale: 0-10 Numeric Is Patient Pain Free? Yes Wound debrided: Nonhealing ulcer right lower extremity Laterality: Right Type of Debridement: Excisional debridement Anesthesia Used: 5% Lidocaine Gel Depth: in the subcutaneous layer Percentage of wound debrided: 100 Instrument Used: 7mm curette Tissue Removed: Slough and devitalized tissue Severity: Fat Layer Exposed Amount of bleeding with debridement: Mild Bleeding Controlled with: Pressure Patient tolerated procedure well Assessment/Plan Assessment: See above diagnoses Plan: The patient was seen and examined at the wound center today and was updated on the plan of care. Debridement was performed today. Apligraf #5 applied today secured with Adaptic touch and Steri-Strips, a 100% of the product was utilized with 0% waste. To keep clean, dry, and intact this upcoming week including the secondary dressing. To continue Tubigrip's this upcoming week for compression. She is advised to elevate her limbs and to avoid idle standing or sitting. Patient verbalized understanding. It is noted the ordered vascular studies were not completed due to a DVT in her left lower extremity which she is getting serial ultrasounds for monitoring, no systemic anticoagulation at this time and patient has recently followed up with her primary care physician. Patient educated on the importance of diet on wound healing and instructed to increase protein and vitamin C intake. Patient verbalized understanding. Patient will follow up at wound healing center in one week or sooner if needed. I answered all of her questions. Code Visit 150xxx-152xx: [id number] Skin sub graft trnk/arm/leg
[2019-03-22 13:45] VITALS: BP 106/43; PULSE 71; RESP 18; TEMP 36.1; BMI 32.7
--- NOTE | 2019-03-22 14:49 | PN.PCM_ITS ---
(1) Nonhealing ulcer of right lower extremity with fat layer exposed Status: Acute Current Visit: Yes Code(s): L97.912 - Non-pressure chronic ulcer of unspecified part of right lower leg with fat layer exposed (2) Skin tear of right lower leg without complication Status: Acute Current Visit: Yes Code(s): S81.811A - Laceration without foreign body, right lower leg, initial encounter (3) DVT (deep venous thrombosis) Status: Chronic Current Visit: Yes Code(s): I82.409 - Acute embolism and thrombosis of unspecified deep veins of unspecified lower extremity (4) Delayed wound healing Status: Chronic Current Visit: Yes Code(s): T14.8XXD - Other injury of unspecified body region, subsequent encounter (5) Essential hypertension Status: Chronic Current Visit: Yes Code(s): I10 - Essential (primary) hypertension (6) PAD (peripheral artery disease) Status: Chronic Current Visit: Yes Code(s): I73.9 - Peripheral vascular disease, unspecified (7) 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 Current Visit: No Code(s): S20.01XA - Contusion of right breast, initial encounter (8) 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 She has a past medical history significant for hypertension, hyperlipidemia, hypothyroidism. She also relates she was recently diagnosed with a left lower extremity blood clot and was evaluated by her primary care physician, Dr. Reyes. Medical treatment for this was not recommended at this time and she denies new development of associated symptoms such as shortness of breath, chest pain, or calf pain, redness or increased swelling to the left leg. Progress of Wound: Stable, wound is healed without any signs of infection at this time. The patient otherwise denies any fever, chills, nausea, vomiting, shortness of breath, chest pain or pressure, palpitations, orthopnea, lower extremity edema, syncope or presyncopal episodes. - Physical Exam Vital Signs Temp Pulse Resp BP 97 F L 71 18 106/43 L 03/22/19 13:45 03/22/19 13:45 03/22/19 13:45 03/22/19 13:45 General: Alert, Oriented x3, Cooperative, No apparent distress HEENT: Atraumatic Oral: Moist Mucosa Neck: Supple Lungs: Clear to auscultation, Normal air movement Cardiovascular: Regular rate, Regular Rhythm Abdomen: Soft, Non Tender Extremities: No clubbing, No cyanosis, No edema Wound Measurements and Assessment WC - Nurse 1 - General Ulcer Measurement Start: 03/08/19 13:58 Freq: Status: Active Protocol: Activity Type Activity Date Activity User E-Sign Co-Sign Detail Recorded Client Recorded Date Recorded By Document 03/22/19 13:45 MT [id number] 03/22/19 13:52 MT 03/22/19 13:45 Wound Center Nurse 1 [Ulcer Assessment] #1 RIGHT WILSON -Current Size (cm) - Length 0.1 -Current Size (cm) - Width 0.1 -Current Size (cm) - Depth 0.1 -Total Square Cm 0.01 -Texture (Lorena-wound Skin Appearance) Assessed -Moisture (Lorena-wound Skin Appearance Assessed ) -Color (Lorena-wound Skin Appearance) Assessed, Hemosiderin Staining -Temperature (Lorena-wound Skin No Abnormality Appearance) (Pt Warm) -Tenderness on Palpation (Lorena-wound No Skin Appearance) -Ulcer Cleansing Rinsed/ Irrigated with Saline -Foul Odor after Cleansing No -Anesthetic Used 4% Lidocaine Solution [Edema Assessment] -Right Calf (cm) 37 -Right Ankle (cm) 19 WC - Nurse 2 - General Ulcer CM Notes Start: 03/08/19 13:58 Freq: Status: Active Protocol: Activity Type Activity Date Activity User E-Sign Co-Sign Detail Recorded Client Recorded Date Recorded By Document 03/22/19 14:15 AN [id number] 03/22/19 14:15 AN 03/22/19 14:15 Pain Scale: 0-10 Numeric [Pain] -Is Patient Pain Free? Yes Neurological: Neuro grossly intact Psych/Mental Status: Normal Affect, Appropriate, Alert and oriented to time, place, person, mood and affect Debridement Note Post-Debridement Measurements/Treatment WC - Nurse 2 - General Ulcer CM Notes Start: 03/08/19 13:58 Freq: Status: Active Protocol: Activity Type Activity Date Activity User E-Sign Co-Sign Detail Recorded Client Recorded Date Recorded By Document 03/08/19 14:17 DL [id number] 03/08/19 14:21 DL Document 03/22/19 14:15 AN [id number] 03/22/19 14:15 AN 03/08/19 03/22/19 14:17 14:15 Wound Center Nurse 2 #1 RIGHT WILSON -Time 14:17 -Correct Patient Yes -Correct Side, Site, Position Yes -Correct Procedure Yes -Procedure Performed Yes -Type of Procedure Debridement -Clinical Debridement Subcutaneous -Post Debridement Size (cm) - Length 0.8 -Post Debridement Size (cm) - Width 1.5 -Post Debridement Size (cm) - Depth 0.2 -Total Square Cm 1.20 -Wound/Ulcer Outcome Amputation -Bioengineered Tissue Yes -Type of bioengineered Tissue Apligraf -Bleeding Controlled with Pressure -Treatment Response Procedure Tolerated Well Pain Scale: 0-10 Numeric Is Patient Pain Free? Yes Yes Assessment/Plan Active Problems (Last Reviewed 03/05/19 @ 15:15 by Oleg Singer MD) Essential hypertension (Chronic) Varicose veins of lower extremity with ulcer (Chronic) PAD (peripheral artery disease) (Chronic) DVT (deep venous thrombosis) (Chronic) Delayed wound healing (Chronic) Nonhealing ulcer of right lower extremity with fat layer exposed (Acute) Skin tear of right lower leg without complication (Acute) Assessment: See above diagnoses Plan: The patient was seen and examined at the wound center today and was updated on the plan of care. The patient's wound is now healed without any signs of infection at this time. Educated patient on interventions to prevent new wounds from occurring. Educated patient on continuing increasing her protein intake and also her vitamin C intake. Patient to continue with double layer Tubigrip for compression. Patient will be discharged from the wound healing center and follow-up if new wounds occur. Code Visit Office Visits / Consults: [id number] OV L3 Est
== END 2019-04-05 23:59 ==
LOC: WC 14:00
PROVIDERS: Family Provider Family Medicine; PCP Family Medicine; Referring Provider Nurse Practitioner Family; Visit Provider Nurse Practitioner Family
DX: I83.018 Varicose veins of right lower extremity with ulcer other part of lower leg (principal); L97.812 Non-pressure chronic ulcer of other part of right lower leg with fat layer exposed; Z86.718 Personal history of other venous thrombosis and embolism; I10 Essential (primary) hypertension; E78.5 Hyperlipidemia, unspecified; S81.811A Laceration without foreign body, right lower leg, initial encounter; X58.XXXA Exposure to other specified factors, initial encounter
CPT/HCPCS: 15271; 15272; 99212; Q4101; G0463

== ENCOUNTER 2019-04-23 07:55 | Day surgery (SDC) | payer MEDICARE, SELFPAY ==
[2019-04-16 13:50] VITALS: BMI 32.5
--- NOTE | 2019-04-16 15:10 | RAD_ITS ---
STUDY: X-RAY CHEST REASON FOR EXAM: Female, 78 years old. Preoperative, chest pain. TECHNIQUE: PA and lateral views of the chest. COMPARISON: 10/14/2017. FINDINGS: The lungs are well expanded with mild subpleural interstitial prominence, otherwise clear. There is no demonstrated pleural abnormality. Normal size heart. Normal mediastinum and jona. Normal visualized pulmonary arteries. There is atherosclerotic calcification of the aortic arch with tortuosity. There are diffuse degenerative changes of the visualized thoracic spine. There is degenerative osteoarthritis of the bilateral shoulders. There is no demonstrated abnormality of the visualized soft tissue structures of the upper abdomen. RAD/Chest PA and Lateral IMPRESSION: Diffuse interstitial changes, stable in the interval. Otherwise no acute cardiopulmonary process seen. Electronically Signed: Lara Monterroso MD at 0:39 EST , Service support ,
[2019-04-16 15:43] LABS: Absolute Lymphocyte Count 1.76 X10^3/uL (0.83-4.51); Absolute Neutrophil Count 6.3 X10^3/uL (2.0-7.7); Basophil# 0.03 X10^3/uL; Basophil% 0.3 % (0-1); Eosinophil# 0.21 X10^3/uL; Eosinophils% 2.4 % (0-5); Hematocrit 41.2 % (37-47); Hemoglobin 12.7 g/dL (12.0-15.0); Lymphocyte # 1.76 X10^3/ul (4.0); Lymphocyte % 19.7 % (19-41); Mean Corp Hgb Conc 30.8 g/dL (32-36); Mean Corpuscular Hgb 31.1 pg (27.0-32.0); Mean Corpuscular Volume 100.7 fL (81-99); Mean Platelet Vol. 10.8 fl (6.2-12.0); Monocyte# 0.56 X10^3/uL; Monocyte% 6.3 % (0-10); NRBC Flagged by Analyzer 0 % (0-5); Neutrophil # 6.33 X10^3/uL (2.7-7.7); Platelet Count 155 K/mm3 (150-450); RBC Distribution Width CV 12.1 % (11.6-14.6); RBC Distribution Width SD 45.1 fl (35.1-43.9); Red Blood Count 4.09 M/mm3 (4.2-5.4); White Blood Count 8.9 K/mm3 (4.4-11.0)
[2019-04-16 16:16] LABS: International Normalized Ratio 1.1; Prothrombin Time (Protime)PT. 13.5 SECONDS (11.7-14.9)
[2019-04-16 16:17] LABS: Partial Thromboplast Time 27.2 Seconds (24.1-36.2)
[2019-04-16 16:34] LABS: Anion Gap 6 (5-15); BUN 27 mg/dL (7-18); BUN/Creat Ratio 16.7 RATIO (10-20); Calcium,Total 10.1 mg/dL (8.5-10.1); Chloride 107 mmol/L (98-107); Creatinine, Serum 1.62 mg/dL (0.55-1.02); EST Glomerular Filtration Rate 33 mL/min (>60); Est Glom Filt Rate - Afr Amer 40 mL/min (>60); Glucose 97 mg/dL (74-106); Potassium 4.7 mmol/L (3.5-5.1); Sodium Level 141 mmol/L (136-145)
[2019-04-19 14:37] VITALS: BMI 32.5
--- NOTE | 2019-04-23 11:20 | CL.D_ITS ---
Patient Name: ELMA VELASCO Study Date: 04/23/2019 Performing: Florian Singer MD Ht: 59 inches 150 cm : 1940 Wt: 161.1 lbs 73 kg Age: 78 Gender: female BSA: 1.68 PROCEDURE(S) PERFORMED [id number] CLINICAL PROFILE AND INDICATIONS Indications: Worsening Angina Heart Failure: None Stress/Imaging Stress Test w/SPECT MPI: Yes Result: Positive Low RiskStress Test with SPECT MPI: Positive Low Risk CAD Presentations: Unstable angina. CONCLUSIONS No significant CAD RECOMMENDATIONS DESCRIPTION OF PROCEDURE The patient arrived to the procedure lab. The risks and benefits of the procedure as well as a full d escription of our services here and current unavailability of surgical backup were fully explained to the patient and/or their significant other prior to the catheterization. The Timeout was completed, verifying the correct patient and procedure. The patient's procedural site was prepped and draped in the usual fashion. Local anesthetic was given subcutaneously to right radial region with Lidocaine 2% . Using a modified Seldinger technique, arterial access was obtained via the right radial artery, a 6 Fr sheath was inserted. Left Coronary Artery selective angiography was performed in multiple views u sing a 5 Fr. JL 5 catheter. Right Coronary Artery selective angiography was then performed in multipl e views using a 5 Fr. JR 4 catheter.The arterial sheath was pulled and a TR Band was applied for hemo stasis CORONARY ANGIOGRAPHY DOMINANCE: Right Dominant LEFT MAIN: Angiographically normal LEFT ANTERIOR DESCENDING ARTERY: Angiographically normal CIRCUMFLEX ARTERY: Mild luminal irregularities RIGHT CORONARY ARTERY: Mild luminal irregularities COMPLICATIONS No Complications PROCEDURE MEDICATIONS Versed 1 mg IV Oxygen: 2 L/min via nasal cannula Heparin given IA 04/23/2019 10:55:33 Verapamil 2.5mg, Ntg 100mcgs, 3000 units of Heparin given IA 04/23/2019 10:55:33 SUMMARY OF HEMODYNAMIC DATA Time AIR REST ECG 08:21:01 AO 145/64 (96) SA 10:57:41 Signed By Florian Singer MD On 04/23/2019 11:19:45 AM Florian Singre MD
== END 2019-04-23 13:00 | disposition home or self-care (01) ==
LOC: CLSP 07:56
PROVIDERS: Family Provider Family Medicine; PCP Family Medicine; Referring Provider Specialist; Visit Provider Specialist
DX: I20.0 Unstable angina (principal); I70.219 Atherosclerosis of native arteries of extremities with intermittent claudication, unspecified extremity; L97.912 Non-pressure chronic ulcer of unspecified part of right lower leg with fat layer exposed; I12.9 Hypertensive chronic kidney disease with stage 1 through stage 4 chronic kidney disease, or unspecified chronic kidney disease; N18.3 Chronic kidney disease, stage 3 (moderate); E78.5 Hyperlipidemia, unspecified; E03.9 Hypothyroidism, unspecified; M10.9 Gout, unspecified; K21.9 Gastro-esophageal reflux disease without esophagitis; E66.9 Obesity, unspecified; Z79.82 Long term (current) use of aspirin; Z79.52 Long term (current) use of systemic steroids; Z79.899 Other long term (current) drug therapy; Z87.891 Personal history of nicotine dependence
CPT/HCPCS: 36415; 71046; 80048; 85025; 85610; 85730; 93454; 99152; 99153; J7040; C1769; C1894; Q9967

== ENCOUNTER → 2019-05-01 16:12 | Outpatient (CLI) | payer MEDICARE, SELFPAY ==
[2019-04-19 14:37] VITALS: BMI 32.5
[2019-05-01 18:03] LABS: AST(SGOT) 36 U/L (15-37); Alanine Aminotransfer ALT/SGPT 25 U/L (13-56); Cholesterol 175 mg/dL (200); High Density Lipoprotein 80 mg/dL; T4 Total, Thyroxin 10.9 ug/dL (4.8-13.9); Thyroid Stim Hormone (TSH) 1.04 uIU/mL (0.358-3.74); Triglycerides 115 mg/dL; Very Low Density Lipoprotein 23 mg/dL (5-40)
== END ==
PROVIDERS: Family Provider Family Medicine; PCP Family Medicine; Referring Provider Family Medicine; Visit Provider Family Medicine
DX: E03.9 Hypothyroidism, unspecified (principal); E78.00 Pure hypercholesterolemia, unspecified
CPT/HCPCS: 36415; 80061; 84436; 84443; 84450; 84460

== ENCOUNTER → 2019-05-08 12:04 | Outpatient (CLI) | payer MEDICARE, SELFPAY ==
[2019-04-16 13:50] VITALS: BMI 32.5
[2019-04-19 14:37] VITALS: BMI 32.5
--- NOTE | 2019-05-08 12:07 | BI_ITS ---
MAMMOGRAPHY - BILATERAL SCREENING REASON FOR EXAM: Female, 78 years old. Routine annual screening examination. PERTINENT HISTORY: Aunt with breast cancer. Patient has a puncture wound along the lateral aspect of the right breast. TECHNIQUE: Digital bilateral breast amanda (3D mammographic acquisition) in the CC and MLO projections. 2-D mediolateral oblique (MLO) and craniocaudad (CC) views of both breasts were obtained. CAD: Full Field Digital Mammography with Computer Added Detection was performed. COMPARISON: Comparison is made with prior examination dated April 12, 2018 and April 09, 2017. FINDINGS: Breast Composition: There are scattered areas of fibroglandular density. There are no dominant masses or suspicious calcifications. Linear density is seen in the upper lateral aspect of the right breast. This corresponds to the visualized puncture wound. Stable microcalcifications. No other significant abnormalities are identified. BI/SCREEN MAMM (CAD) W/AMANDA BILAT IMPRESSION: Increased density in the slightly superior lateral aspect of the right breast and keep with the patient's history of a puncture wound. Yearly follow-up mammogram recommended. (A) ASSESSMENT CATEGORY: BIRADS Category 2: Benign. A letter regarding these results will be sent to the patient by the facility within 30 days. Approximately 10% of breast cancers are not detected by mammography. A normal mammogram should not delay biopsy of a clinically suspicious abnormality. [id number] Electronically Signed: Rigo Shah, at 14:54 EST , Service support ,
== END ==
PROVIDERS: Family Provider Family Medicine; PCP Family Medicine; Referring Provider Family Medicine; Visit Provider Family Medicine
DX: Z12.31 Encounter for screening mammogram for malignant neoplasm of breast (principal)
CPT/HCPCS: 77063; 77067

== ENCOUNTER → 2019-07-09 16:42 | Outpatient (CLI) | payer MEDICARE, SELFPAY ==
[2019-04-19 14:37] VITALS: BMI 32.5
--- NOTE | 2019-07-09 16:47 | RAD_ITS ---
STUDY: X-RAY - ABDOMEN/PELVIS REASON FOR EXAM: Female, 78 years old. Abdominal bloating. TECHNIQUE: Single AP view of the abdomen / pelvis. COMPARISON: None. FINDINGS: Healed granulomatous calcifications. There is an unremarkable bowel gas pattern with gas seen to the rectum. There is no demonstrated free abdominal air. The visualized liver, spleen and kidneys are grossly normal in size and morphology. Normal soft tissue structures. Osteopenia with rotatory levoscoliosis. RAD/Abdomen Single View IMPRESSION: No acute abnormality of the lower chest, abdomen or pelvis. Electronically Signed: João Kim MD at 17:12 EST , Service support ,
== END ==
PROVIDERS: PCP Family Medicine; Referring Provider Internal Medicine Gastroenterology; Visit Provider Internal Medicine Gastroenterology
DX: R14.0 Abdominal distension (gaseous) (principal)
CPT/HCPCS: 74018

== ENCOUNTER → 2020-01-28 17:01 | Outpatient (CLI) | payer MEDICARE, SELFPAY ==
[2019-04-19 14:37] VITALS: BMI 32.5
--- NOTE | 2020-01-28 17:03 | RAD_ITS ---
STUDY: X-RAY CHEST REASON FOR EXAM: Female, 79 years old. sob on exertion TECHNIQUE: PA and lateral views of the chest. COMPARISON: 04/16/2019. FINDINGS: Cardiac silhouette unremarkable. Pulmonary vascularity unremarkable. Aorta calcified and slightly ectatic. No focal patchy airspace opacities. No pleural effusions. COPD/fibrosis. Upper abdomen unremarkable. Osseous structures demineralized with degenerative features. No pneumothorax. RAD/Chest PA and Lateral IMPRESSION: No acute cardiopulmonary findings COPD/fibrosis Electronically Signed: Atif Farooq DO at 11:21 EDT Tel , Service support ,
== END ==
PROVIDERS: PCP Family Medicine; Referring Provider Family Medicine; Visit Provider Family Medicine
DX: R06.02 Shortness of breath (principal)
CPT/HCPCS: 71046

== ENCOUNTER → 2020-05-08 16:08 | Outpatient (CLI) | payer MEDICARE, SELFPAY ==
[2019-04-19 14:37] VITALS: BMI 32.5
--- NOTE | 2020-05-08 16:11 | BI_ITS ---
MAMMOGRAPHY - BILATERAL SCREENING REASON FOR EXAM: Female, 79 years old. Routine annual screening examination. PERTINENT HISTORY: Aunt with breast cancer. TECHNIQUE: Digital bilateral breast amanda (3D mammographic acquisition) in the CC and MLO projections. 2-D mediolateral oblique (MLO) and craniocaudad (CC) views of both breasts were obtained. CAD: Full Field Digital Mammography with Computer Added Detection was performed. COMPARISON: Comparison is made with prior study dated 05/08/2019 and 04/12/2018. FINDINGS: Breast Composition: There are scattered areas of fibroglandular density. There are no dominant masses or suspicious calcifications. Stable linear density in the upper outer aspect of the right breast. Stable bilateral macrocalcifications. No other significant abnormalities are identified. There has been no significant change since the prior study. BI/SCREEN MAMM (CAD) W/AMANDA BILAT IMPRESSION: Stable bilateral screening mammogram. Yearly follow-up mammogram recommended. (A) ASSESSMENT CATEGORY: BIRADS Category 2: Benign. A letter regarding these results will be sent to the patient by the facility within 30 days. Approximately 10% of breast cancers are not detected by mammography. A normal mammogram should not delay biopsy of a clinically suspicious abnormality. [id number] Electronically Signed: Rigo Shah, at 8:05 EST , Service support ,
== END ==
PROVIDERS: PCP Family Medicine; Visit Provider Family Medicine
DX: Z12.31 Encounter for screening mammogram for malignant neoplasm of breast (principal); Z80.3 Family history of malignant neoplasm of breast
CPT/HCPCS: 77063; 77067

== ENCOUNTER → 2020-05-13 14:24 | Outpatient (CLI) | payer MEDICARE, SELFPAY ==
[2019-04-19 14:37] VITALS: BMI 32.5
[2020-05-13 18:49] LABS: AST(SGOT) 44 U/L (15-37); Alanine Aminotransfer ALT/SGPT 30 U/L (13-56); Cholesterol 174 mg/dL (200); High Density Lipoprotein 66 mg/dL; T4 Total, Thyroxin 10.4 ug/dL (4.8-13.9); Thyroid Stim Hormone (TSH) 1.13 uIU/mL (0.358-3.74); Triglycerides 145 mg/dL; Very Low Density Lipoprotein 29 mg/dL (5-40)
== END ==
PROVIDERS: PCP Family Medicine; Visit Provider Family Medicine
DX: E78.00 Pure hypercholesterolemia, unspecified (principal); E03.9 Hypothyroidism, unspecified
CPT/HCPCS: 36415; 80061; 84436; 84443; 84450; 84460

== ENCOUNTER → 2020-11-12 11:42 | Outpatient (CLI) | payer MEDICARE, SELFPAY ==
[2019-04-19 14:37] VITALS: BMI 32.5
[2020-11-12 15:29] LABS: Cholesterol 153 mg/dL (200); High Density Lipoprotein 58 mg/dL; T4 Total, Thyroxin 9.6 ug/dL (4.8-13.9); Thyroid Stim Hormone (TSH) 0.33 uIU/mL (0.358-3.74); Triglycerides 163 mg/dL; Very Low Density Lipoprotein 33 mg/dL (5-40)
== END ==
PROVIDERS: PCP Family Medicine; Referring Provider Family Medicine; Visit Provider Family Medicine
DX: E78.5 Hyperlipidemia, unspecified (principal); E03.9 Hypothyroidism, unspecified
CPT/HCPCS: 36415; 80061; 84436; 84443

== ENCOUNTER 2021-08-06 13:10 | Outpatient (CLI) | payer MEDICARE, SELFPAY ==
--- NOTE | 2021-08-06 13:15 | ECHOCS_ITS ---
Reason For Study: SOB Procedure This was a 2D Doppler, Color Flow transthoracic echocardiogram. The study was technically difficult. Exam performed in department. Left Ventricle The estimated ejection fraction is 55 %. No evidence for diastolic dysfunction. No regional wall motion abnormalities noted. Right Ventricle Normal RV size. Normal systolic function. Atria Normal left atrium. Normal right atrium. No doppler evidence for ASD. Mitral Valve There is no mitral valve stenosis. No mitral valve insufficiency. Tricuspid Valve There is no tricuspid stenosis. Unable to estimate RV systolic pressure due to inadequate jet, pulmonary artery pressure probably normal. Aortic Valve Trisinus/trileaflet aortic valve. There is no aortic stenosis. No aortic valve insufficiency. Pulmonic Valve There is no pulmonic valvular stenosis. Trivial pulmonic valve insufficiency. Great Vessels Normal aortic root. Pericardium/Pleural No pericardial effusion. Medication 22 gauge I.V. with prn adaptor inserted into right arm. Diluted definity 1.5ml given slow IV push to enhance endocardial definition. MMode/2D Measurements & Calculations LVIDd: 4.2 cm IVSd: 0.76 cm LAV(MOD-bp): 27.5 ml LVIDs: 3.0 cm LVPWd: 0.79 cm RVDd: 3.1 cm FS: 29.4 % LAV(MOD-bp) Indexed: 16.4 ml/m2 LAV(MOD-sp2): 29.6 ml LAV(MOD-sp4): 23.5 ml SV(MOD-sp4): 29.5 ml SV(sp4-el): 31.7 ml LVAd ap4: 22.6 cm2 LVLd ap4: 6.8 cm EDV(MOD-sp4): 60.8 ml EDV(sp4-el): 63.9 ml LVAs ap4: 14.6 cm2 LVLs ap4: 5.6 cm ESV(MOD-sp4): 31.3 ml ESV(sp4-el): 32.3 ml EF(MOD-sp4): 48.5 % EF(sp4-el): 49.6 % LA A4 area: 12.1 cm2 RA A4 area: 8.9 cm2 Time Measurements MV dec time: 0.20 sec Doppler Measurements & Calculations MV E max umair: 65.9 cm/sec Lat Peak E' Umair: 8.9 cm/sec Med Peak E' Umair: 6.8 cm/sec MV A max umair: 97.7 cm/sec E/E' lat: 7.4 E/E' med: 9.7 MV E/A: 0.67 Ao V2 max: 128.9 cm/sec LV V1 max: 110.8 cm/sec PA V2 max: 110.6 cm/sec Ao max P.6 mmHg LV V1 max P.9 mmHg ECHO/Echo Complete W/ Contrast Interpretation Summary The estimated ejection fraction is 55 %. No evidence for diastolic dysfunction. Ordering Physician: Sheila Reyes Referring Physician: Sheila Reyes Performed By: [place] Del Cid RDCS
== END 2021-08-06 23:59 | disposition home or self-care (01) ==
LOC: CVS 13:13
PROVIDERS: PCP Family Medicine; Referring Provider Family Medicine; Visit Provider Family Medicine
DX: R06.02 Shortness of breath (principal)
CPT/HCPCS: 93306; Q9957; A4216; C8929

== ENCOUNTER → 2021-10-08 | Outpatient (CLI) | payer MEDICARE, SELFPAY | END | disposition home or self-care (01) | LOC: MFPLAB 16:39 | PROVIDERS: PCP Family Medicine; Referring Provider Family Medicine; Visit Provider Nurse Practitioner Family | DX: N39.0 Urinary tract infection, site not specified (principal) | CPT/HCPCS: 87086 ==

== ENCOUNTER → 2021-11-10 | Outpatient (CLI) | payer MEDICARE, SELFPAY ==
--- NOTE | 2021-11-10 14:14 | RAD_ITS ---
STUDY: XR Abdomen W/ Decub and/or Erect Views 11/10/2021 2:20 PM REASON FOR EXAM: Female, 81 years old. ABDOMINAL PAIN ABDOMINAL PAIN TECHNIQUE: XR Abdomen W/ Decub and/or Erect Views COMPARISON: None FINDINGS: Possible fibrosis of the lung bases. There is an unremarkable bowel gas pattern. There is no demonstrated free abdominal air. The visualized liver, spleen and kidneys are grossly normal in size and morphology. Normal soft tissue structures. There are diffuse degenerative changes of the visualized lumbar spine. RAD/Abd Inc Decub and/or Erect IMPRESSION: There are no acute findings. Electronically Signed: Hernan Bettencourt MD at 14:53 EDT ,
[2021-11-10 17:53] LABS: Absolute Lymphocyte Count 1.57 X10^3/uL (0.83-4.51); Basophil# 0.03 X10^3/uL; Basophil% 0.4 % (0-1); Eosinophil# 0.34 X10^3/uL; Eosinophils% 4.5 % (0-5); Hemoglobin 12.4 g/dL (12.0-15.0); Lymphocyte # 1.57 X10^3/ul (0.83-4.51); Lymphocyte % 20.7 % (19-41); Mean Corpuscular Hgb 31.4 pg (27.0-32.0); Mean Corpuscular Volume 101.3 fL (81-99); Monocyte# 0.65 X10^3/uL; Monocyte% 8.6 % (0-10); NRBC Flagged by Analyzer 0 % (0-5); Neutrophil # 4.97 X10^3/uL (2.7-7.7); Neutrophil % 65.5 % (47-70); Platelet Count 138 K/mm3 (150-450); RBC Distribution Width CV 12.6 % (11.6-14.6); RBC Distribution Width SD 47.8 fl (35.1-43.9); Red Blood Count 3.95 M/mm3 (4.2-5.4); White Blood Count 7.6 K/mm3 (4.4-11.0)
[2021-11-10 18:03] LABS: Vitamin B12 905 pg/mL (211-911)
[2021-11-10 19:41] LABS: Anion Gap 7 (5-15); BUN 30 mg/dL (7-18); BUN/Creat Ratio 17.4 RATIO (10-20); Calcium,Total 10.1 mg/dL (8.5-10.1); Chloride 107 mmol/L (98-107); Creatinine, Serum 1.72 mg/dL (0.55-1.02); EST Glomerular Filtration Rate 30 mL/min (>60); Est Glom Filt Rate - Afr Amer 37 mL/min (>60); Glucose 87 mg/dL (74-106); Potassium 4.8 mmol/L (3.5-5.1); Sodium Level 139 mmol/L (136-145); T4 Total, Thyroxin 10.6 ug/dL (4.8-13.9); Thyroid Stim Hormone (TSH) 2.38 uIU/mL (0.358-3.74)
== END | disposition home or self-care (01) ==
LOC: MTLAB 14:12
PROVIDERS: PCP Family Medicine; Referring Provider Family Medicine; Visit Provider Family Medicine
DX: R10.9 Unspecified abdominal pain (principal); M30.0 Polyarteritis nodosa; N18.30 Chronic kidney disease, stage 3 unspecified; E03.9 Hypothyroidism, unspecified
CPT/HCPCS: 36415; 74019; 80048; 82607; 82746; 84436; 84443; 85025

== ENCOUNTER → 2021-11-25 | Outpatient (CLI) | payer MEDICARE, SELFPAY ==
--- NOTE | 2021-11-25 14:59 | RAD_ITS ---
STUDY: X-RAY - LUMBAR SPINE REASON FOR EXAM: Female, 81 years old. LOW BACK PAIN TECHNIQUE: XR Spine Lumbar Min 4 Views COMPARISON: None FINDINGS: Normal lumbar lordosis. There is a dextroscoliosis of the lumbar spine. There is a normal alignment of the vertebrae. There is multilevel endplate spondylosis of the lumbar vertebrae. There is multi-level degenerative disc disease with multi-level disc space narrowing. There is atherosclerotic calcification of the abdominal aorta without a demonstrated aneurysm. RAD/L/S Spine Min 4 Views IMPRESSION: Degenerative changes of the spine, as detailed above. Electronically Signed: Hernan Bettencourt MD at 16:32 EDT ,
--- NOTE | 2021-11-25 15:15 | RAD_ITS ---
STUDY: X-RAY - THORACIC SPINE REASON FOR EXAM: Female, 81 years old. LOW BACK PAIN TECHNIQUE: XR Spine Thoracic 3 Views COMPARISON: None FINDINGS: Normal kyphosis of the thoracic spine. There is no substantial scoliosis. There is multilevel endplate spondylosis of the thoracic vertebrae. There is multilevel disc space narrowing of the thoracic spine. The soft tissue structures are unremarkable. RAD/Thoracic Spine 3 Views IMPRESSION: There are degenerative changes as noted above. Electronically Signed: Hernan Bettencourt MD at 16:31 EDT ,
== END | disposition home or self-care (01) ==
LOC: RAD 14:57
PROVIDERS: PCP Family Medicine; Referring Provider Anesthesiology Pain Medicine; Visit Provider Anesthesiology Pain Medicine
DX: M54.50 Low back pain, unspecified (principal); M79.605 Pain in left leg
CPT/HCPCS: 72072; 72110

== ENCOUNTER → 2021-12-11 | Outpatient (CLI) | payer MEDICARE, SELFPAY ==
--- NOTE | 2021-12-11 14:49 | CT_ITS ---
STUDY: CT Abdomen And Pelvis W/ Contrast Injection 12/11/2021 7:22 PM REASON FOR EXAM: Female, 81 years old. Abdominal pain ABD PAIN Individualized dose optimization techniques were used for this CT. COMPARISON: None. TECHNIQUE: CT Abdomen And Pelvis W/ Contrast Injection Oral and amp; IV Readi-CAT and amp; 100mL Isovue-300 FINDINGS: There are atherosclerotic calcifications of visualized coronary arteries. Right lower lobe pneumonia. Normal liver. Normal gallbladder and extrahepatic biliary system. Normal spleen. Normal pancreas. Normal bilateral adrenal glands. No acute findings of the right kidney. There are hypodensities in the left kidney. These are consistent for cysts. No follow up required. Cortical scarring of both kidneys. Focal wall thickening of the antrum of stomach. This can suggest a gastritis. Normal small intestine. There are multiple colonic diverticula consistent with diverticulosis. There is non-visualization of the appendix. There are calcifications of the abdominal aorta. This is consistent for atherosclerotic disease. There is NO abdominal aortic aneurysm. Vascular workup can be obtained based on clinical correlation. Normal inferior vena cava. Subcentimeter mesenteric lymph nodes. Normal urinary bladder. There is atrophy of the uterus. There is an umbilical hernia containing fat. There are diffuse degenerative changes of the visualized lumbar spine. CT/Abdomen/Pelvis WITH Contrast IMPRESSION: (NOT LISTED IN ORDER OF SIGNIFICANCE) Gastritis. Right lower lobe pneumonia. Other findings as above. Electronically Signed: Hernan Bettencourt MD at 19:24 EDT ,
[2021-12-11 15:56] LABS: CREATININE FINGERSTICK < 0.9 mg/dL (0.55-1.02); EGFR FINGERSTICK > 60.0000 mL/min (>60)
== END | disposition home or self-care (01) ==
LOC: CT 14:47
PROVIDERS: PCP Family Medicine; Referring Provider Family Medicine; Visit Provider Family Medicine
DX: J18.9 Pneumonia, unspecified organism (principal); I70.0 Atherosclerosis of aorta; K57.30 Diverticulosis of large intestine without perforation or abscess without bleeding; K29.70 Gastritis, unspecified, without bleeding; K42.9 Umbilical hernia without obstruction or gangrene; N85.8 Other specified noninflammatory disorders of uterus; I25.10 Atherosclerotic heart disease of native coronary artery without angina pectoris; R10.84 Generalized abdominal pain
CPT/HCPCS: 74177; Q9967

== ENCOUNTER → 2021-12-21 | Outpatient (CLI) | payer MEDICARE, SELFPAY ==
--- NOTE | 2021-12-21 09:50 | RAD_ITS ---
STUDY: X-RAY CHEST REASON FOR EXAM: Female, 81 years old. Pneumonia follow up TECHNIQUE: PA and lateral views of the chest. COMPARISON: Comparison is made with prior study dated 01/28/2020. FINDINGS: Stable mild increased interstitial markings at the lung bases suggestive of scarring. No focal infiltrate is seen. There is no demonstrated pleural abnormality. Normal size heart. Normal mediastinum and jona. Normal visualized pulmonary arteries. There is atherosclerotic calcification of the aortic arch with tortuosity. There are diffuse degenerative changes of the visualized thoracic spine. Dextroscoliosis. Normal visualized ribs, clavicles, and shoulders. There is no demonstrated abnormality of the visualized soft tissue structures of the upper abdomen. RAD/Chest PA and Lateral IMPRESSION: Stable mild increased interstitial markings at the lung bases suggestive of scarring. Electronically Signed: Rigo Shah MD at 13:13 EDT ,
== END | disposition home or self-care (01) ==
LOC: RAD 09:39
PROVIDERS: PCP Family Medicine; Referring Provider Family Medicine; Visit Provider Family Medicine
DX: J18.9 Pneumonia, unspecified organism (principal)
CPT/HCPCS: 71046

== ENCOUNTER → 2022-01-11 | Outpatient (CLI) | payer MEDICARE, SELFPAY ==
[2022-01-11 18:16] LABS: Erythrocyte Sedimentation Rate 67 mm/hr (0-30)
[2022-01-11 19:30] LABS: CRP < 2.90 mg/L (0.0-3.0)
== END | disposition home or self-care (01) ==
LOC: MTLAB 16:47
PROVIDERS: PCP Family Medicine; Referring Provider Internal Medicine Rheumatology; Visit Provider Internal Medicine Rheumatology
DX: M30.0 Polyarteritis nodosa (principal); M15.9 Polyosteoarthritis, unspecified; M47.897 Other spondylosis, lumbosacral region; M51.37 Other intervertebral disc degeneration, lumbosacral region; M21.40 Flat foot [pes planus] (acquired), unspecified foot; N18.9 Chronic kidney disease, unspecified; E78.5 Hyperlipidemia, unspecified; E03.9 Hypothyroidism, unspecified; H35.3130 Nonexudative age-related macular degeneration, bilateral, stage unspecified; H35.341 Macular cyst, hole, or pseudohole, right eye; H33.001 Unspecified retinal detachment with retinal break, right eye; H43.812 Vitreous degeneration, left eye; H04.123 Dry eye syndrome of bilateral lacrimal glands
CPT/HCPCS: 36415; 85652; 86140

== ENCOUNTER → 2022-01-12 | Outpatient (CLI) | payer MEDICARE, SELFPAY ==
--- NOTE | 2022-01-12 15:24 | BI_ITS ---
MAMMOGRAPHY - BILATERAL SCREENING REASON FOR EXAM: Female, 81 years old. Routine annual screening examination. PERTINENT HISTORY: Aunt with breast cancer. TECHNIQUE: Digital bilateral breast amanda (3D mammographic acquisition) in the CC and MLO projections. 2-D mediolateral oblique (MLO) and craniocaudad (CC) views of both breasts were obtained. CAD: Full Field Digital Mammography with Computer Added Detection was performed. COMPARISON: Comparison is made with prior study dated 05/08/2020 and 05/08/2019. FINDINGS: Breast Composition: The breasts are almost entirely fatty. There are no dominant masses or suspicious calcifications. Stable small benign-appearing bilateral axillary lymph nodes. Stable benign-appearing calcifications in the retroareolar region of the right breast. No other significant abnormalities are identified. There has been no significant change since the prior study. BI/SCRN MAMM (CAD)W/AMANDA BILAT IMPRESSION: Stable bilateral screening mammogram. Yearly follow-up mammogram recommended. (A) ASSESSMENT CATEGORY: BIRADS Category 2: Benign. A letter regarding these results will be sent to the patient by the facility within 30 days. Approximately 10% of breast cancers are not detected by mammography. A normal mammogram should not delay biopsy of a clinically suspicious abnormality. [id number] Electronically Signed: Rigo Shah MD at 8:20 EDT ,
== END | disposition home or self-care (01) ==
LOC: OPBI 15:22
PROVIDERS: PCP Family Medicine; Visit Provider Family Medicine
DX: Z12.31 Encounter for screening mammogram for malignant neoplasm of breast (principal); Z80.3 Family history of malignant neoplasm of breast
CPT/HCPCS: 77063; 77067

== ENCOUNTER → 2023-07-25 | Outpatient (CLI) | payer MEDICARE, SELFPAY ==
--- OUTSIDE RECORDS SUMMARY | 2023-07-25 18:26 | XMS RPT_ITS | CCD ---
Author Name Unknown Address [address] [place] [address] Organization [facility] Care Team Providers Care Asset Protection Officer Name Role Phone TANVI FELIX MD Admitting Unavailable TANVI FELIX MD Primary Care Unavailable TANVI FELIX MD Consulting Unavailable FATIMAH PAVON S Referring Unavailable TANVI FELIX MD Attending Unavailable PROVIDER, UNKNOWN Consulting Unavailable PROVIDER, UNKNOWN Consulting Unavailable RAH LIMA MD Attending Unavailable RAH LIMA MD Admitting Unavailable TANVI FELIX MD Consulting Unavailable RAH LIMA MD Primary Care Unavailable PROVIDER, UNKNOWN Consulting Unavailable PROVIDER, UNKNOWN Consulting Unavailable TANVI FELIX MD Admitting Unavailable TANVI FELIX MD Primary Care Unavailable TANVI FELIX MD Consulting Unavailable TANVI FELIX MD Attending Unavailable PROVIDER, UNKNOWN Consulting Unavailable PROVIDER, UNKNOWN Consulting Unavailable TANVI FELIX MD Admitting Unavailable TANVI FELIX MD Primary Care Unavailable TANVI FELIX MD Attending Unavailable TANVI FELIX MD Consulting Unavailable PROVIDER, UNKNOWN Consulting Unavailable PROVIDER, UNKNOWN Consulting Unavailable NIGEL SERRATO MD Admitting Unavailable NIGEL SERRATO MD Attending Unavailable NIGEL SERRATO MD Primary Care Unavailable TANVI FELIX MD Consulting Unavailable PROVIDER, UNKNOWN Consulting Unavailable PROVIDER, UNKNOWN Consulting Unavailable TANVI FELIX MD Primary Care Unavailable TANVI FELIX MD Admitting Unavailable TANVI FELIX MD Attending Unavailable TANVI FELIX MD Consulting Unavailable PROVIDER, UNKNOWN Consulting Unavailable PROVIDER, UNKNOWN Consulting Unavailable MORENA MOLINA I Attending Unavailable MORENA MOLINA I Admitting Unavailable MORENA MOLINA I Primary Care Unavailable TANVI FELIX MD Consulting Unavailable PROVIDER, UNKNOWN Consulting Unavailable PROVIDER, UNKNOWN Consulting Unavailable TANVI FELIX MD Consulting Unavailable NIGEL SERRATO MD Admitting Unavailable NIGEL SERRATO MD Attending Unavailable NIGEL SERRATO MD Primary Care Unavailable PROVIDER, UNKNOWN Consulting Unavailable PROVIDER, UNKNOWN Consulting Unavailable MORENA MOLINA I Attending Unavailable MORENA MOLINA I Admitting Unavailable MORENA MOLINA I Primary Care Unavailable LIBRADO, FATIMAH S Consulting Unavailable NIGEL SERRATO MD Referring Unavailable PROVIDER, UNKNOWN Consulting Unavailable LIBRADO, FATIMAH S Consulting Unavailable NIGEL SERRATO MD Attending Unavailable NIGEL SERRATO MD Primary Care Unavailable NIGEL SERRATO MD Admitting Unavailable PROVIDER, UNKNOWN Consulting Unavailable TANVI FELIX MD Attending Unavailable TANVI FELIX MD Admitting Unavailable TANVI FELIX MD Primary Care Unavailable TANVI FELIX MD Consulting Unavailable PROVIDER, UNKNOWN Consulting Unavailable PROVIDER, UNKNOWN Consulting Unavailable TANVI FELIX MD Primary Care Unavailable TANVI FELIX MD Attending Unavailable TANVI FELIX MD Admitting Unavailable JOLLIFF, FATIMAH S Consulting Unavailable PROVIDER, UNKNOWN Consulting Unavailable Allergies Allergy Classification Reported Allergen(s) Allergy Type Date of Onset Reaction(s) Facility (1 source) Erythromycin Drug Allergy [facility] Repository (1 source) Morphine Drug Allergy [facility] Rep[facility] (1 source) Nitroglycerin Drug Allergy [facility] Rep[facility] (1 source) predniSONE Drug Allergy [facility] Repository Problems Active Problems Problem Classification Problem Date Documented Date Episodic/Chronic Chronic kidney disease (1 source) Chronic kidney disease, unspecified; Translations: [Chronic kidney disease, unspecified] Onset: 07-13-2023 Chronic Disorders of lipid metabolism (4 sources) Hyperlipidemia, unspecified; Translations: [Mixed hyperlipidemia] Onset: 01-07-2023 Chronic Gout and other crystal arthropathies (4 sources) Gout, unspecified; Translations: [Gout, unspecified] Onset: 01-06-2023 Chronic Malaise and fatigue (1 source) Other fatigue; Translations: [Other fatigue] Onset: 07-13-2023 Episodic Osteoarthritis (1 source) Polyosteoarthritis, unspecified; Translations: [Polyosteoarthritis, unspecified] Onset: 07-13-2023 Chronic Systemic lupus erythematosus and connective tissue disorders (1 source) Polyarteritis nodosa; Translations: [Polyarteritis nodosa] Onset: 07-13-2023 Chronic Thyroid disorders (4 sources) Hypothyroidism, unspecified; Translations: [Hypothyroidism, unspecified] Onset: 01-07-2023 Chronic Past or Other Problems Problem Classification Problem Date Documented Da te Episodic/Chronic Acute and unspecified renal failure (1 source) Acute kidney failure, unspecified; Translations: [Acute kidney failure, unspecified] Onset: 01-31-2023 Episodic Results Test Name Value Interpretation Reference Range Facil ity Encounters Encounter Date Encounter Type Care Provider Facility Start: 07-14-2023 End: 07-14-2023 Emergency department patient visit RAH LEDESMA [facility] Start: 07-13-2023 End: 07-13-2023 ambulatory TANVI Loza [facility] Start: 04-07-2023 End: 04-07-2023 ambulatory MORENA MOLINA Dago [facility] Start: 03-22-2023 End: 03-22-2023 ambulatory TANVI Loza [facility] Start: 01-31-2023 End: 01-31-2023 ambulatory TANVI Loza [facility] Start: 01-28-2023 End: 01-28-2023 ambulatory TANVI FELIX Dago [facility] Start: 01-07-2023 End: 01-07-2023 ambulatory TANVI Loza [facility] Start: 01-06-2023 End: 01-06-2023 ambulatory NIGEL SERRATO [facility] Start: 09-14-2022 End: 09-15-2022 ambulatory TANVI FELIX Dago [facility] Start: 09-07-2022 End: 09-07-2022 ambulatory TANVI FELIX Dago [facility] Start: 07-28-2022 End: 07-28-2022 ambulatory FATIMAH PAVON [facility] Start: 07-21-2022 End: 07-21-2022 ambulatory MORENA I LEE Dago [facility] Payers Date Payer Category Payer Unknown [id number] 2.16.8 [id number] 1940 Unknown [id number] 2.16.8 [id number]. 1941 Unknown [id number] 2.16.8 [id number]. 1941 Unknown [id number] 2.16.8 [id number]. 1941 Unknown [id number] 2.16.8 [id number]. 1941 Unknown [id number] 2.16.8 [id number]. 1941 Unknown [id number] 2.16.8 40.1.975769.3.579.2. 1941 Unknown [id number] 2.16.8 40.1.014653.3.579.2. 1941 Unknown [id number] 2.16.84 0.1.261286.3.579.2. 1941 Unknown [id number] 2.16.84 0.1.026264.3.579.2.1 1941 Unknown [id number] 2.16.84 0.1.273014.3.579.2. 1941 Unknown [id number] 2.16.84 0.1.278646.3.579.2. Medicare [id number] Summary Purpose Family History No Family History Records FoundNo Family History Records Found Advance Directives No Advanced Directives Records FoundNo Advanced Directives Records Found Additional Source Comments INFORMATION SOURCE (unrecogn ized section and content) DATE CREATED AUTHOR AUTHOR'S BRADLEY ATTERA 07/15/2023 [facility] FOR RECORDS PERTAINING TO PATIENTS WHO ARE OR HAVE BEEN ENROLLED IN A CHEMICAL DEPENDENCY/SUBSTANCEABUSE PROGRAM, SOME INFORMATION MAY BE OMITTED. This clinical summary was aggregated from multiple sources. Caution should be exercised in using it in the provision of clinical care. This summary normalizes information from multiple sources, and as a consequence, information in this document may materially change the coding, format and clinical context of patient data. In addition, data may be omitted in some cases. CLINICAL DECISIONS SHOULD BE BASED ON THE PRIMARY CLINICAL RECORDS. [facility] [employer] [facility]. provides no warranty or guarantee of the accuracy or completeness of information in this document.
[2023-07-25 19:09] LABS: CPK Total, Creatine Kinase 46 U/L (26-192)
[2023-07-27 15:08] LABS: Aldolase 4.4 U/L (3.3-10.3)
== END | disposition home or self-care (01) ==
LOC: MTLAB 15:39
PROVIDERS: PCP Family Medicine; Referring Provider Internal Medicine Rheumatology; Visit Provider Internal Medicine Rheumatology
DX: M51.37 Other intervertebral disc degeneration, lumbosacral region (principal); M30.0 Polyarteritis nodosa; M47.897 Other spondylosis, lumbosacral region; M15.9 Polyosteoarthritis, unspecified; M10.9 Gout, unspecified
CPT/HCPCS: 36415; 82085; 82550

== ENCOUNTER → 2024-10-15 | Outpatient (CLI) | payer MEDICARE, SELFPAY ==
[2024-10-16 14:08] LABS: CCP IgG Antibodies 12 units (0-19); Cytoplasmic Ab (C-ANCA) <1:20 titer (Neg:<1:20); Perinuclear Ab (P-ANCA) <1:20 titer (Neg:<1:20)
[2024-10-16 15:08] LABS: ANTINUCLEAR ANTIBODIES DIRECT Negative (Negative)
== END | disposition home or self-care (01) ==
PROVIDERS: PCP Student in an Organized Health Care Education/Training Program; Referring Provider Internal Medicine Critical Care Medicine; Visit Provider Internal Medicine Critical Care Medicine
DX: J96.11 Chronic respiratory failure with hypoxia (principal); J84.9 Interstitial pulmonary disease, unspecified
CPT/HCPCS: 36415; 86037; 86038; 86200; 86225; 86431